=== PATIENT | male | born 1945 | race African-American/Black ===

== ENCOUNTER 2017-01-14 11:59 | Emergency (ER) | payer OTHER, BC ==
[2017-01-14 12:09] VITALS: BP 143/83; PULSE 87; TEMP 98.3; BMI 28.5
--- NOTE | 2017-01-14 13:31 | PDOC ---
History of Present Illness - General Chief Complaint: Pain Stated Complaint: INJURY Time Seen by Provider: 01/14/17 12:15 History Source: Patient Exam Limitations: No Limitations - History of Present Illness Initial Comments: 01/14/17 13:31 CHIEF COMPLAINT: Swelling redness to left great toe HISTORY OF PRESENT ILLNESS: Patient is a 71-year-old man with history of hypertension high cholesterol presents with swelling and redness to left great toe. Patient reports injuring toe for months ago. Patient denied any complaints after injury, developed redness and swelling several days ago wants to make sure it does not gout versus exacerbation of injury. Patient able to ambulate without difficulty. Review of Systems GENERAL/CONSTITUTIONAL: No fever or chills. No weakness. No weight change. HEAD, EYES, EARS, NOSE AND THROAT: No change in vision. No ear pain or discharge. No sore throat. CARDIOVASCULAR: No chest pain or shortness of breath. RESPIRATORY: No cough, wheezing, or hemoptysis. GASTROINTESTINAL: No nausea, vomiting, diarrhea or constipation. No rectal bleeding. GENITOURINARY: No dysuria, frequency, or change in urination. MUSCULOSKELETAL: Redness swelling and pain to left great toe SKIN: No rash or easy bruising. Erythema to left great toe NEUROLOGIC: No headache, vertigo, loss of consciousness, or loss of sensation. PSYCHIATRIC: No depression or anxiety. ENDOCRINE: No increased thirst. No abnormal weight change. HEMATOLOGIC/LYMPHATIC: No anemia, easy bleeding, or history of blood clots. ALLERGIC/IMMUNOLOGIC: No hives or skin allergy. No latex allergy. Physical Exam: GENERAL: The patient is awake, alert, and fully oriented, in no acute distress. LUNGS: Breath sounds equal, clear to auscultation bilaterally. No wheezes, and no crackles. HEART: Regular rate and rhythm, normal S1 and S2 without murmur, rub or gallop. ABDOMEN: Soft, nontender, normoactive bowel sounds. No guarding, no rebound. No masses. No bruising or abrasions MUSCULOSKELETAL: Normal range of motion, edema to left great toe with associated pain. No clubbing or cyanosis. No cords, erythema, or tenderness. NEUROLOGICAL: Cranial nerves II through XII grossly intact. Normal speech, normal gait. PSYCH: Normal mood, normal affect. SKIN: Left great toe with erythema, edema, bruising with streaking to ankle. Past History - Past Medical History Allergies/Adverse Reactions: Allergies Allergy/AdvReac Type Severity Reaction Status Date / Time JENNIFER Inhibitors Allergy Verified 01/14/17 12:09 Penicillins Allergy Verified 01/14/17 12:09 Home Medications: Ambulatory Orders Rosuvastatin Calcium [Crestor] 10 mg PO DAILY 01/09/16 Amlodipine Besylate [Norvasc -] 5 mg PO DAILY #30 tablet 01/31/16 Nebivolol [Bystolic -] 10 mg PO DAILY #30 tab 02/01/16 Cephalexin [Keflex] 500 mg PO TID #30 capsule 01/14/17 Methylprednisolone [Medrol Dose Anthony] 4 mg PO ASDIR #21 tablet 01/14/17 Cancer: Yes (PROSTATE) GI Disorders: Yes HTN: Yes Hypercholesterolemia: Yes Kidney Stones: Yes - Immunization History Immunization Up to Date: Yes - Psycho/Social/Smoking Cessation Hx Anxiety: No Suicidal Ideation: No Smoking History: Never smoked Have you smoked in the past 12 months: Yes Number of Cigarettes Smoked Daily: 10 If you are a former smoker, when did you quit?: 1 month Information on smoking cessation initiated: No 'Breaking Loose' booklet given: 01/28/16 Hx Alcohol Use: Yes (OCCASIONALLY) Drug/Substance Use Hx: No Substance Use Type: Alcohol *Physical Exam - Vital Signs Last Vital Signs Temp Pulse Resp BP Pulse Ox 98.3 F 87 16 143/83 98 01/14/17 12:06 01/14/17 12:06 01/14/17 12:06 01/14/17 12:06 01/14/17 12:06 ED Treatment Course - ADDITIONAL ORDERS Additional order review: Laboratory Results 01/14/17 12:31 Uric Acid 6.6 - RADIOLOGY Radiology Studies Ordered: Category Date Time Status FOOT-LEFT [RAD] Stat Radiology 01/14/17 12:29 Ordered Medical Decision Making - Medical Decision Making 01/14/17 16:29 A/P: Patient here for evaluation of left great toe redness and pain, will send uric acid and xray. Laboratory Results - last 24 hr 01/14/17 12:31 Uric Acid 6.6 X-rays negative for acute fracture dislocation, case spoken to with Dr. ana maria ball nurse practitioner Dudley Rasmussen. Patient with history that he did not disclose earlier of kidney cancer with nephrectomy. After discussion, clinical signs or highly suspicious of gout however uric acid does not indicate. We will treat patient with Keflex and Medrol Dosepak, monitor closely in follow-up in office on . I discussed the physical exam findings, ancillary test results and final diagnoses with the patient. I answered all of the patient's questions. The patient was satisfied with the care received and felt comfortable with the discharge plan and treatment plan. The patient will call to arrange follow-up and will return to the Emergency Department with any new, persistent or worsening symptoms. *DC/Admit/Observation/Transfer Diagnosis at time of Disposition: Toe pain Qualifiers: Laterality: left Qualified Code(s): M79.675 - Pain in left toe(s) - Discharge Dispostion Disposition: HOME Condition at time of disposition: Good Admit: No - Prescriptions Prescriptions: Cephalexin [Keflex] 500 mg PO TID #30 capsule Methylprednisolone [Medrol Dose Anthony] 4 mg PO ASDIR #21 tablet - Referrals Referrals: Velasquez Garcia MD [Primary Care Provider] - - Patient Instructions Additional Instructions: I spoke to Dudley from the office of Dr. Garcia, please follow up on . Please take medications as prescribed, if rash or reaction stop immediately and return to the ER. If any increased redness, swelling or pain return to the ER.
== END 2017-01-14 14:31 | disposition home or self-care (01) ==
LOC: JERFT 11:59
DX: M79.675 Pain in left toe(s) (principal); I10 Essential (primary) hypertension; E78.00 Pure hypercholesterolemia, unspecified
CPT/HCPCS: 36415; 73630-TC-LT; 84550; 99281-25

== ENCOUNTER 2017-02-26 17:43 | Emergency (ER) | payer OTHER, BC ==
[2017-02-26 18:14] VITALS: BP 141/81; PULSE 85; TEMP 98.1; BMI 28.5
--- NOTE | 2017-02-26 19:10 | PDOC ---
History of Present Illness - General Chief Complaint: Pain, Acute Stated Complaint: ARM PAIN Time Seen by Provider: 02/26/17 19:03 History Source: Patient Exam Limitations: No Limitations - History of Present Illness Initial Comments: 02/26/17 19:23 My chief complaint: Right shoulder pain for one week History of present illness: Patient is a 72-year-old male with a history of kidney/prostate cancer, hypertension, hyperlipidemia, here today complaining of worsening right shoulder pain times one week. He denies doing anything that might have triggered right shoulder pain. Patient has been getting physical therapy for rotator cuff tear of the left shoulder. She thinks he might have been using his right arm and more since having problems with his left shoulder. Patient reports in exam room that pain starts right lateral neck radiates to right shoulder and right lateral upper arm. Patient reports that pain sometimes at night when lying down we'll radiate down his arm. Patient denies any weakness of his arm or any decreased range of motion of his right shoulder or right elbow or wrist or hand. Patient denies any swelling or redness of his right arm. Patient denies that movement increases the pain of his right shoulder and right lateral neck and right lateral upper arm. Reports he been taking ibuprofen and putting a hot pack on his the area to help with pain. Patient reports that pain is not relieved at night. 02/26/17 19:27 Timing/Duration: changing over time (for one week ) Severity: moderate (rt shoulder medial to outer, upper lateral arm at times radiates down arm, rt. upper posterior shoulder ) Associated Symptoms: reports: denies symptoms Past History - Past Medical History Allergies/Adverse Reactions: Allergies Allergy/AdvReac Type Severity Reaction Status Date / Time JENNIFER Inhibitors Allergy Verified 02/26/17 18:11 Penicillins Allergy Verified 02/26/17 18:11 Home Medications: Ambulatory Orders Rosuvastatin Calcium [Crestor] 10 mg PO DAILY 01/09/16 Amlodipine Besylate [Norvasc -] 5 mg PO DAILY #30 tablet 01/31/16 Nebivolol [Bystolic -] 10 mg PO DAILY #30 tab 02/01/16 Oxycodone HCl/Acetaminophen [Percocet 5-325 mg Tablet] 1 tab PO Q8H PRN #9 tablet MDD 3 02/26/17 Cancer: Yes (PROSTATE) GI Disorders: Yes HTN: Yes Hypercholesterolemia: Yes Kidney Stones: Yes - Immunization History Immunization Up to Date: Yes - Suicide/Smoking/Psychosocial Hx Smoking History: Never smoked Have you smoked in the past 12 months: Yes Number of Cigarettes Smoked Daily: 10 If you are a former smoker, when did you quit?: 5YRS AGO Information on smoking cessation initiated: No 'Breaking Loose' booklet given: 01/28/16 Hx Alcohol Use: No Drug/Substance Use Hx: No Substance Use Type: Alcohol Review of Systems - Review of Systems Able to Perform ROS?: Yes Constitutional: No: Symptoms Reported HEENTM: No: Symptoms Reported Respiratory: No: Symptoms reported Cardiac (ROS): No: Symptoms Reported ABD/GI: No: Symptoms Reported : No: Symptoms Reported Musculoskeletal: Yes: Joint Pain (rt. anterior/posterior shoulder, lateral rt. neck, upper lateral upper arm, at times radiates down arm when in bed for one week ), Muscle Pain (rt. lateral upper arm X 1 wk ), Neck Pain (rt. lateral neck ). No: Joint Swelling Integumentary: No: Symptoms Reported Neurological: No: Symptoms reported *Physical Exam - Vital Signs Last Vital Signs Temp Pulse Resp BP Pulse Ox 98.1 F 85 16 141/81 98 02/26/17 18:11 02/26/17 18:11 02/26/17 18:11 02/26/17 18:11 02/26/17 18:11 - Physical Exam General Appearance: Yes: Appropriately Dressed Neck: positive: Tender lateral (rt, lateral). negative: Decreased range of motion, Lymphadenopathy (R), Lymphadenopathy (L), Rigidity Respiratory/Chest: positive: Lungs Clear, Normal Breath Sounds. negative: Chest Tender, Respiratory Distress Cardiovascular: positive: Regular Rhythm, Regular Rate, S1, S2 Musculoskeletal: positive: Normal Inspection. negative: CVA Tenderness, CVA Tenderness (R), CVA Tenderness (L), Decreased Range of Motion, Muscle Spasm, Vertebral Tenderness Extremity: positive: Normal Capillary Refill, Normal Inspection, Normal Range of Motion (b/l shoulders, rt. elbow, rt. wrist ), Tender (rt. anterior/ posterior shoulder,rt. lateral upper arm ). negative: Swelling Integumentary: positive: Normal Color Neurologic: positive: Alert, Normal Response, Motor Strength 5/5 (b/l upper extremities), Respond to painful stimul, Responsive. negative: Numbness, Sensory Deficit (rt. arm ) ED Treatment Course - RADIOLOGY Radiology Studies Ordered: Category Date Time Status SHOULDER-LEFT [RAD] Stat Radiology 02/26/17 19:04 Ordered SPINE-CERVICAL [RAD] Stat Radiology 02/26/17 19:04 Ordered Medical Decision Making - Medical Decision Making 02/26/17 19:27 Patient is a 72-year-old male with a history of kidney/prostate cancer, hypertension, hyperlipidemia, here today complaining of worsening right shoulder pain times one week. He denies doing anything that might have triggered right shoulder pain. Patient has been getting physical therapy for rotator cuff tear of the left shoulder. She thinks he might have been using his right arm and more since having problems with his left shoulder. Patient reports in exam room that pain starts right lateral neck radiates to right shoulder and right lateral upper arm. Patient reports that pain sometimes at night when lying down we'll radiate down his arm. Patient denies any weakness of his arm or any decreased range of motion of his right shoulder or right elbow or wrist or hand. Patient denies any swelling or redness of his right arm. Patient denies that movement increases the pain of his right shoulder and right lateral neck and right lateral upper arm. Reports he been taking ibuprofen and putting a hot pack on his the area to help with pain. Patient reports that pain is not relieved at night. r/o cervical neck grayson abnormality r/o rt. shoulder abormality rt. lateral neck pain rt. shoulder pain 02/26/17 19:28 PLAN: X-ray of cervical spine straightening of the cervical spine with degenerative changes C3-C4 mild degenerative disc disease with mild anterior spondylosis. C6- C7 moderate to marked degenerative disc disease with sclerotic changes, prominent anterior and mild posterior spur formation. No prevertebral soft tissue swelling is seen per Dr. Gorman X-ray of right shoulder no gross bone or soft tissue abnormality is seen Will have patient follow up with orthopedist as soon as possible for further evaluation And will give patient Rx for Percocet 5 mg/325 mg 1 tab every 8 hours as needed for severe pain # 9 tabs *DC/Admit/Observation/Transfer Diagnosis at time of Disposition: Right cervical radiculopathy - Discharge Dispostion Disposition: HOME Condition at time of disposition: Stable - Referrals Referrals: Velasquez Garcia MD [Primary Care Provider] - Adebayo Murillo MD [Staff Physician] - - Patient Instructions Additional Instructions: You must follow up with your orthopedist this week for further evaluation Avoid strenuous activities using your neck or right shoulder Return to emergency room if symptoms worsen any numbness of your right arm or any new symptoms develop Patient voiced understanding of discharge instructions and all questions were answered
== END 2017-02-26 20:04 | disposition home or self-care (01) ==
LOC: JERFT 17:43
DX: M54.12 Radiculopathy, cervical region (principal); M50.31 Other cervical disc degeneration, high cervical region; I10 Essential (primary) hypertension; E78.00 Pure hypercholesterolemia, unspecified; Z85.46 Personal history of malignant neoplasm of prostate; Z85.528 Personal history of other malignant neoplasm of kidney
CPT/HCPCS: 72050-TC; 73030-TC-RT; 99281-25

== ENCOUNTER 2017-04-24 09:30 | Inpatient (IN) | payer OTHER, BC ==
[2017-04-24 09:34] VITALS: BMI 28.5
--- NOTE | 2017-04-24 09:46 | PDOC ---
History of Present Illness - General Chief Complaint: Nausea/Vomiting Stated Complaint: CHEST PAIN,VOMITING Time Seen by Provider: 04/24/17 09:46 - History of Present Illness Initial Comments: 04/24/17 10:27 72yo man with PMH of renal cancer (s/p L lower lobe kidney resection), prostate Ca (s/p RT 2y ago), HTN, HLD, current smoker and everyday EtOH drinker who presents with acute onset emesis at 1AM. He reports vomiting every 15minutes, green/yellow fluid, denies blood. He had diffuse abdominal pain radiating to his chest and axilla bilaterally and mid-upper back. Reports subjective chills, no fever. Last BM yesterday morning, denies diarrhea, hematochezia, BRBPR. No unusual meals, had a home cook meal last night. Reports smoking 10cigarettes per day for a "long time"; Drinks 3-4 shots of Gin every day, last drink yesterday night before vomiting. Denies drug use. PSx: R knee replacement, L lower lobe kidney resection 04/24/17 11:14 04/24/17 11:23 Past History - Past Medical History Allergies/Adverse Reactions: Allergies Allergy/AdvReac Type Severity Reaction Status Date / Time JENNIFER Inhibitors Allergy Verified 04/24/17 10:19 Penicillins Allergy Verified 04/24/17 10:19 Home Medications: Ambulatory Orders Amlodipine Besylate [Norvasc -] 5 mg PO DAILY #30 tablet 01/31/16 Nebivolol [Bystolic -] 10 mg PO DAILY #30 tab 02/01/16 Cancer: Yes (PROSTATE) COPD: No GI Disorders: Yes HTN: Yes Hypercholesterolemia: Yes Kidney Stones: Yes - Immunization History Immunization Up to Date: Yes - Suicide/Smoking/Psychosocial Hx Smoking History: Current every day smoker Have you smoked in the past 12 months: Yes Number of Cigarettes Smoked Daily: 10 If you are a former smoker, when did you quit?: 5YRS AGO Information on smoking cessation initiated: No 'Breaking Loose' booklet given: 01/28/16 Hx Alcohol Use: Yes (DAILY GIN) Drug/Substance Use Hx: No Substance Use Type: Alcohol *Physical Exam - Vital Signs Last Vital Signs Temp Pulse Resp BP Pulse Ox 97.3 F L 69 20 153/84 98 04/24/17 09:30 04/24/17 09:30 04/24/17 09:30 04/24/17 09:30 04/24/17 09:30 - Physical Exam General Appearance: Yes: Mild Distress Neck: positive: Supple Respiratory/Chest: positive: Lungs Clear, Normal Breath Sounds Cardiovascular: positive: Regular Rhythm, Regular Rate, S1, S2 Gastrointestinal/Abdominal: positive: Normal Bowel Sounds, Soft, Protuberent, Tenderness, Other (Soft, +diffuse tenderness, worse in epigastric area, + guarding. No rebound) Musculoskeletal: negative: CVA Tenderness Neurologic: positive: Fully Oriented, Alert Heart Score/ECG Review - [place]: Normal - ECG Impressions Comment:: 04/24/17 13:53 EKG: NSR, rate 65, normal axis, normal intervals, no evidence of ischemic changes ED Treatment Course - LABORATORY CBC & Chemistry Diagram: 04/24/17 10:35 04/24/17 10:35 - RADIOLOGY Radiology Studies Ordered: 04/24/17 13:49 EXAM: CT abdomen and pelvis without contrast. INDICATION: Epigastric tenderness to palpation. TECHNIQUE: Noncontrast CT of the abdomen and pelvis without oral contrast and without intravenous contrast. COMPARISON: 01/28/2016 CT abdomen/pelvis. FINDINGS: Evaluation of the solid viscera, vessels and bowel is limited without contrast. There are dependent changes in both lung bases. The heart is not enlarged. There is severe coronary artery calcific atherosclerosis. The liver is normal in size and contour. Scattered small calcifications in the left hepatic lobe are unchanged, most likely calcified granulomas. There is cholelithiasis. No CT evidence of acute cholecystitis. Common bile duct is not dilated. The unenhanced pancreas is unremarkable. Normal size spleen. A nonspecific 2.3 x 2.1 cm hypodense lesion in the superior spleen is unchanged in size from prior. There is no mass in the adrenal glands. There is a nonobstructing calculus in a lower pole calyx of the right kidney measuring 5-6 mm and a 2 mm nonobstructing calculus in the upper pole of left kidney. There is a 7 mm round cortical calcification in the upper pole of the left kidney, unchanged. There is no hydronephrosis. There are no ureteral calculi. Normal caliber abdominal aorta with severe calcific atherosclerosis including the major branch vessels. There are no pathologically enlarged retroperitoneal lymph nodes by CT size criteria. No dilated loops of large or small bowel to suggest obstruction. There is diverticulosis of the transverse, descending and sigmoid colon with no evidence of acute diverticulitis. Normal-appearing appendix in the right lower quadrant. No free intraperitoneal air or ascites. There is a small fat- containing umbilical hernia. Urinary bladder is unremarkable. Prostate gland is not enlarged. There are no pathologically enlarged pelvic sidewall lymph nodes by CT size criteria. There is osseous demineralization with no evidence of acute fracture in the visualized osseous structures. There are degenerative changes throughout the spine with grade 1 anterolisthesis of L4 and L5. There is epidural lipomatosis with significant thecal sac compression at all levels from L3 superior endplate to L5 inferior endplate, similar to the prior exam. IMPRESSION: 1. No evidence of intestinal obstruction or acute diverticulitis. Normal appendix. 2. Cholelithiasis. No CT evidence of acute cholecystitis or biliary ductal dilatation. 3. Nonobstructing nephrolithiasis measuring up to 5-6 mm in the right kidney. No hydroureteronephrosis. No ureteral or urinary bladder calculi. Medical Decision Making - Medical Decision Making 04/24/17 11:24 Plan: -CBC, CMP, Lipase -1L NS -Zofran and Morphine given for nausea and pain 04/24/17 11:30 CBC, BMP 04/24/17 10:35 Laboratory Tests 04/24/17 04/24/17 10:35 10:35 Neutrophils % 90.5 H Lymphocytes % 4.4 L Monocytes % 4.8 Eosinophils % 0.1 D Basophils % 0.2 CMP Sodium 140 mmol/L (136-145) 04/24/17 10:35 Potassium 3.7 mmol/L (3.5-5.1) 04/24/17 10:35 Chloride 104 mmol/L (98-107) 04/24/17 10:35 Carbon Dioxide 29 mmol/L (21-32) D 04/24/17 10:35 Anion Gap 7 (8-16) L 04/24/17 10:35 BUN 19 mg/dL (7-18) H D 04/24/17 10:35 Creatinine 1.6 mg/dL (0.7-1.3) H D 04/24/17 10:35 Creat Clearance w eGFR 42.82 (>60) 04/24/17 10:35 Random Glucose 152 mg/dL (74-106) H D 04/24/17 10:35 Calcium 9.6 mg/dL (8.5-10.1) D 04/24/17 10:35 Total Bilirubin 0.5 mg/dL (0.2-1.0) D 04/24/17 10:35 AST 51 U/L (15-37) H D 04/24/17 10:35 ALT 36 U/L (12-78) D 04/24/17 10:35 Alkaline Phosphatase 142 U/L (45-117) H D 04/24/17 10:35 Total Protein 8.1 g/dl (6.4-8.2) D 04/24/17 10:35 Albumin 4.2 g/dl (3.4-5.0) D 04/24/17 10:35 Lipase 302 U/L (73-393) 04/24/17 10:35 Laboratory Tests 04/24/17 10:35 Lipase 302 Alk Phos moderately elevated, but LFTs and Lipase not significantly elevated. CBC with predominant neutrophils, possibly suggestive of infectious etiology. Patient continues to have abdominal pain with most significant tenderness in epigastrium. CT abd/pelvis revealed R nephrolithiasis with no evidence of hydrouretronephrosis. Pancreatitis unlikely given no elevation of lipate and lack of findings on imaging. Given lack of findings on CT that could be contributing to patient's significant abdmominal pain, will favor admission to further work-up. 04/24/17 13:54 *DC/Admit/Observation/Transfer Diagnosis at time of Disposition: Abdominal pain - Discharge Dispostion Admit: Yes - Referrals Referrals: Velasquez Garcia MD [Primary Care Provider] - - Patient Instructions - Post Discharge Activity
--- NOTE | 2017-04-24 09:48 | PDOC ---
Attending Attestation - HPI HPI: 04/24/17 10:56 The patient is a 72 year old male with a significant PMH of HTN, hyperlipidemia , diabetes, prostate CA s/p radiation therapy, and alcohol abuse who presents to the emergency department with abdominal pain and vomiting beginning approximately 11 hours ago. The patient reports an onset of yellow-green emesis at 1AM this morning with episodes every 15 minutes since then. The patient denies hematemesis. The patient describes his abdominal pain as diffuse and radiating to his chest and mid upper back. He denies eating anything unusual for dinner yesterday night. Allergies: JENNIFER inhibitors, Penicillins Surgical history: Partial resection of left lower lobe of kidney. Right knee replacement. Social history: Everyday alcohol use. Everyday smoker. No reported drug use. PCP: Dr. Garcia <Manpreet Joseph - Last Filed: 04/24/17 11:42> - Resident Resident Name: April Schultz - ED Attending Attestation I have performed the following: I have examined & evaluated the patient, The case was reviewed & discussed with the resident, I agree w/resident's findings & plan, Exceptions are as noted - Physicial Exam PE: GENERAL: Awake, alert, and fully oriented. Appears uncomfortable. HEAD: No signs of trauma EYES: PERRLA, EOMI, sclera anicteric, conjunctiva clear ENT: Auricles normal inspection, hearing grossly normal, nares patent, oropharynx clear without exudates. Dry mucosa NECK: Normal ROM, supple, no lymphadenopathy, JVD, or masses LUNGS: Breath sounds equal, clear to auscultation bilaterally. No wheezes, and no crackles HEART: Regular rate and rhythm, normal S1 and S2, no murmurs, rubs or gallops ABDOMEN: Soft, +diffuse tenderness, worse in epigastric area, +guarding. Normoactive bowel sounds. No rebound. No masses EXTREMITIES: Normal range of motion, no edema. No clubbing or cyanosis. No cords, erythema, or tenderness NEUROLOGICAL: Cranial nerves II through XII grossly intact. Normal speech, normal gait SKIN: Warm, Dry, normal turgor, no rashes or lesions noted. - Medical Decision Making Pt with epigastric/upper abdominal pain, diffusely tender, but worst in upper abdomen. Will obtain labs, then CT a/p to further evaluate. <Marlen Ashton - Last Filed: 04/24/17 12:27>
[2017-04-24] MEDS ORDERED: ONDANSETRON 4 MG/2 ML VIAL IVPB ONE (10:29)
[2017-04-24] MEDS ORDERED: morphine CARPU-JECT 2 MG/1 ML DISP.SYRIN IVPUSH ONE (10:30)
[2017-04-24] MEDS ORDERED: SODIUM CHLORIDE 1,000 ML IV STA (10:31)
[2017-04-24] MEDS ORDERED: morphine CARPU-JECT 4 MG/1 ML DISP.SYRIN IVPUSH ONE ×2 (10:33→11:26)
[2017-04-24] MEDS ORDERED: ONDANSETRON 4 MG/2 ML VIAL ONE (10:35)
[2017-04-24] MEDS ORDERED: morphine SULFATE 4 MG/ML VIAL ONE ×2 (10:35→11:46)
[2017-04-24 10:47] LABS: BASOPHIL 0.2 % (0-2.0); EOSINOPHIL 0.1 % (0-4.5); MCH 31.7 pg (25.7-33.7); MCHC 33.1 g/dl (32.0-35.9); MEAN CELL VOLUME 95.6 fl (80-96); MEAN PLT VOLUME 7.1 fl (7.5-11.1); NEUTROPHILS 90.5 % (42.8-82.8); PLATELET COUNT 182 K/MM3 (134-434); RDW 14.5 % (11.9-15.9); WHITE BLOOD COUNT 7.4 K/mm3 (4.0-10.0)
[2017-04-24 11:14] LABS: ALBUMIN 4.2 g/dl (3.4-5.0); ALK PHOS 142 U/L (45-117); ANION GAP 7 (8-16); BILIRUBIN,TOTAL 0.5 mg/dL (0.2-1.0); CALCIUM 9.6 mg/dL (8.5-10.1); CO2 29 mmol/L (21-32); CREATININE 1.6 mg/dL (0.7-1.3); GLUCOSE,RANDOM 152 mg/dL (74-106); SGOT/AST 51 U/L (15-37); SGPT/ALT 36 U/L (12-78); TOT PROT 8.1 g/dl (6.4-8.2)
[2017-04-24] MEDS ORDERED: PANTOPRAZOLE SODIUM 40 MG VIAL IVPUSH ONE (13:40)
[2017-04-24] MEDS ORDERED: PANTOPRAZOLE SODIUM 40 MG/100 ML BAG IVPB ONE (14:42)
[2017-04-24] MEDS ORDERED: HYDROmorphone HCL CARPU-JECT 1 MG/1 ML DISP.SYRIN IVPUSH ONE (15:20)
[2017-04-24] MEDS ORDERED: HYDROmorphone HCL CARPU-JECT 1 MG/1 ML DISP.SYRIN ONE (15:21)
[2017-04-24] MEDS ORDERED: ONDANSETRON 4 MG/2 ML VIAL IVPUSH PRN (15:59)
[2017-04-24] MEDS: D5-1/2NS+20 MEQ KCL - 20 MEQ/1,000 ML INFUS.BAG IV SCH (16:48)
[2017-04-24] MEDS: HYDROmorphone HCL CARPU-JECT 2 MG/1 ML DISP.SYRIN IVPUSH PRN ×2 (18:09→22:33)
[2017-04-24] MEDS ORDERED: PNEUMOC 13-VAL CONJ-DIP CRM/PF 0.5 ML DISP.SYRIN IM ONE ×2 (18:20→23:30)
[2017-04-24] MEDS: HEPARIN NA (PORCINE) 5,000 UNITS/ML 1ML VIAL SQ SCH (21:18)
--- NOTE | 2017-04-24 22:31 | CONSULT ---
Consult Consult Specialty:: General Surgery Referred by:: Dr. Garcia Reason for Consultation:: abdominal pain, n/v - History of Present Illness Chief Complaint: abdominal pain, n/v History of Present Illness: 72yo M with HTN, HLD, h/o renal and prostate CA, kidney stones, gallstones, daily smoker and drinker, began having bilious vomiting around 1am (yesterday?) morning not long after 3 teaspoons of ice cream, which persisted every 15-30 minutes through the morning. He had shrimp and rice for dinner before that. Last drink was the night before the emesis. Last BM was yesterday, soft. Was not vomiting food, just green/yellow fluid. He also had/has diffuse abdominal pain radiating to the chest, axillae, and upper back. He describes generalized muscle cramps "all over my body" as well. He spoke with Dr. Garcia (PMD), who told him to stop taking his Crestor. He was going to take magnesium for the cramping, but was also asked to wait until they were able to check labs. In the ER, he had a normal wbc, slightly elevated BUN/Cr 19/1.6, AST 51, alk phos 142 both slightly up, otherwise normal labs. No urine result, no Mg/Phos. CT was done showing no acute findings, but he had persistent abdominal pain and tenderness and was admitted for workup. The pt said he once had pain like this but it turned out to be kidney stones. He sees Dr. Blackwell for colonoscopies every 3 years. - History Source History Provided By: Patient Limitations to Obtaining History: No Limitations - Past Medical History Cardio/Vascular: Yes: HTN, Hyperlipdemia Hepatobiliary: Yes: Cholelithiasis Renal/: Yes: Cancer (renal cell s/p L lower renal lobectomy; prostate s/p radiation only), Renal Calculi Musculoskeletal: Yes: Osteoarthritis (knees) Endocrine: No: Diabetes Mellitus (denies) - Past Surgical History Past Surgical History: Yes: Colonoscopy (with precancerous polyps, usually gets scoped e0inlow), Joint Replacement (right knee), Nephrectomy (left lower partial ) - Alcohol/Substance Use Hx Alcohol Use: Yes (DAILY 3 GIN/DAY) History of Substance Use: reports: None - Smoking History Smoking history: Current every day smoker Have you smoked in the past 12 months: Yes Aproximately how many cigarettes per day: 10 (for 30 years) - Social History ADL: Independent Home Medications - Allergies Allergies/Adverse Reactions: Allergies Allergy/AdvReac Type Severity Reaction Status Date / Time JENNIFER Inhibitors Allergy Verified 04/24/17 10:19 Penicillins Allergy Verified 04/24/17 10:19 - Home Medications Home Medications: Ambulatory Orders Amlodipine Besylate [Norvasc -] 5 mg PO DAILY #30 tablet 01/31/16 Nebivolol [Bystolic -] 10 mg PO DAILY #30 tab 02/01/16 Home Medications (free text): Zyrtec daily, Crestor - stopped few days ago Family Disease History - Family Disease History Family History: Unremarkable Review of Systems - Review of Systems Constitutional: denies: Chills, Fever Eyes: reports: Other (wears glasses). denies: Recent Change in Vision HENT: denies: Difficult Swallowing, Hearing Loss, Nasal Congestion, Throat Pain Neck: denies: Swollen Glands, Tenderness Cardiovascular: denies: Chest Pain, Palpitations Respiratory: reports: SOB (difficulty breathing secondary to abdominal pain). denies: Cough Gastrointestinal: reports: Abdominal Pain (with hpi), Nausea (with hpi), Vomiting (bilious, with hpi). denies: Constipation, Diarrhea, Vomiting Blood Genitourinary: denies: Burning, Dysuria, Hematuria Musculoskeletal: reports: Extremity Pain, Muscle Pain, Muscle Cramps (all over) , Other (involuntary movements, fasciculations at times). denies: Joint Pain Integumentary: denies: Change in Color, Rash Neurological: reports: Unsteady Gait (sometimes it feels like his legs are "floating up" and if bends over he might fall). denies: Dizziness, Headache Psychiatric: denies: Anxiety, Depression Physical Exam Vital Signs: Vital Signs Temperature 98.1 F 04/24/17 22:00 Pulse Rate 91 H 04/24/17 22:00 Respiratory Rate 20 04/24/17 22:00 Blood Pressure 163/93 04/24/17 22:00 O2 Sat by Pulse Oximetry (%) 95 04/24/17 18:38 Constitutional: Yes: Well Nourished, No Distress, Calm Eyes: Yes: Conjunctiva Clear, EOM Intact. No: Sclera Icterus HENT: Yes: Atraumatic, Normocephalic Neck: Yes: Supple, Trachea Midline Cardiovascular: Yes: Tachycardia. No: Pulse Irregular, Murmur Respiratory: Yes: Regular, CTA Bilaterally Gastrointestinal: Yes: Normal Bowel Sounds, Soft, Hernia (tiny reducible umbilical), Tenderness (RUQ, epigastric, RLQ slightly less, overall less on left but still LUQ tender - no R/G), Other (healed LLQ scar). No: Distention ...Rectal Exam: Yes: Deferred Renal/: Yes: CVA Tenderness - Left, CVA Tenderness - Right ("I think it's gas pains back there") Musculoskeletal: No: Joint Stiffness, Joint Swelling Extremities: Yes: Other (healed right knee scar). No: Cool, Cyanosis Edema: No Peripheral Pulses WNL: Yes Integumentary: No: Jaundice, Rash Neurological: Yes: Alert, Oriented Psychiatric: Yes: Alert, Oriented Labs: CBC, BMP 04/24/17 10:35 04/24/17 10:35 CMP Sodium 140 mmol/L (136-145) 04/24/17 10:35 Potassium 3.7 mmol/L (3.5-5.1) 04/24/17 10:35 Chloride 104 mmol/L (98-107) 04/24/17 10:35 Carbon Dioxide 29 mmol/L (21-32) D 04/24/17 10:35 Anion Gap 7 (8-16) L 04/24/17 10:35 BUN 19 mg/dL (7-18) H D 04/24/17 10:35 Creatinine 1.6 mg/dL (0.7-1.3) H D 04/24/17 10:35 Creat Clearance w eGFR 42.82 (>60) 04/24/17 10:35 Random Glucose 152 mg/dL (74-106) H D 04/24/17 10:35 Calcium 9.6 mg/dL (8.5-10.1) D 04/24/17 10:35 Total Bilirubin 0.5 mg/dL (0.2-1.0) D 04/24/17 10:35 AST 51 U/L (15-37) H D 04/24/17 10:35 ALT 36 U/L (12-78) D 04/24/17 10:35 Alkaline Phosphatase 142 U/L (45-117) H D 04/24/17 10:35 Total Protein 8.1 g/dl (6.4-8.2) D 04/24/17 10:35 Albumin 4.2 g/dl (3.4-5.0) D 04/24/17 10:35 Lipase 302 U/L (73-393) 04/24/17 10:35 Imaging - Results Cat Scan: Report Reviewed (no obstruction, normal appendix, no free air or fluid , + renal stones nonobstructing, + cholelithiasis, no signs cholecystitis, diverticulosis without itis, calcific atherosclerosis), Image Reviewed Problem List - Problems (1) Abdominal pain Assessment/Plan: admitted to medicine no evidence of obstruction, appendicitis, cholecystitis, diverticulitis on CT agree with NPO/IVF until pain/tenderness resolve follow clinical exam GI to see patient differential also includes alcoholic gastritis, gastroenteritis, food poisoning ?? no acute surgical issues identified at this time pt also has diffuse muscle cramping and is daily drinker consider magnesium supplementation, lab not yet checked Dr. David Le will cover for me until Saturday will follow with you Code(s): R10.9 - UNSPECIFIED ABDOMINAL PAIN Qualifiers: Abdominal location: generalized Qualified Code(s): R10.84 - Generalized abdominal pain (2) Vomiting with nausea, not intractable Assessment/Plan: if n/v persist despite antiemetics, explained to pt that NGT could be considered Code(s): R11.2 - NAUSEA WITH VOMITING, UNSPECIFIED Qualifiers: Vomiting type: unspecified Qualified Code(s): R11.2 - Nausea with vomiting , unspecified (3) Alcohol consumption of one to four drinks per day Code(s): Z78.9 - OTHER SPECIFIED HEALTH STATUS (4) H/O renal cell cancer Code(s): Z85.528 - PERSONAL HISTORY OF OTHER MALIGNANT NEOPLASM OF KIDNEY (5) H/O prostate cancer Code(s): Z85.46 - PERSONAL HISTORY OF MALIGNANT NEOPLASM OF PROSTATE (6) Hyperlipidemia Code(s): E78.5 - HYPERLIPIDEMIA, UNSPECIFIED Qualifiers: Hyperlipidemia type: unspecified Qualified Code(s): E78.5 - Hyperlipidemia , unspecified (7) HTN (hypertension) Code(s): I10 - ESSENTIAL (PRIMARY) HYPERTENSION
[2017-04-25] MEDS: D5-1/2NS+20 MEQ KCL - 20 MEQ/1,000 ML INFUS.BAG IV SCH ×4 (02:59→21:34)
[2017-04-25] MEDS: HYDROmorphone HCL CARPU-JECT 2 MG/1 ML DISP.SYRIN IVPUSH PRN ×3 (03:36→16:09)
[2017-04-25 08:07] LABS: BASOPHIL 0.1 % (0-2.0); MCH 32.4 pg (25.7-33.7); MCHC 33.5 g/dl (32.0-35.9); MEAN CELL VOLUME 96.7 fl (80-96); MEAN PLT VOLUME 7.8 fl (7.5-11.1); NEUTROPHILS 89.6 % (42.8-82.8); PLATELET COUNT 187 K/MM3 (134-434); RDW 14.3 % (11.9-15.9); WHITE BLOOD COUNT 11.8 K/mm3 (4.0-10.0)
--- NOTE | 2017-04-25 08:09 | PN ---
Progress Note, Physician Chief Complaint: abdominal pain and vomiting History of Present Illness: 72yo M with HTN, HLD, h/o renal and prostate CA, kidney stones, gallstones, daily smoker and drinker, began having bilious vomiting possibly since saturday after ice cream, which persisted every 15-30 minutes through the morning. and may have had 25 episodes since then. He reports persistent abdominal pain and nausea, no more vomiting and no NGT. - Current Medication List Current Medications: Active Medications Heparin Sodium (Porcine) (Heparin -) 5,000 unit SQ BID GERALD Last Admin: 04/24/17 21:18 Dose: 5,000 unit Hydromorphone HCl (Dilaudid Injection -) 1 mg IVPUSH Q4H PRN PRN Reason: PAIN Last Admin: 04/25/17 03:36 Dose: 1 mg Potassium Chloride/Dextrose/Sod Cl (D5-1/2ns+20 Meq Kcl -) 20 meq in 1,000 mls @ 125 mls/hr IV ASDIR GERALD Last Admin: 04/25/17 02:59 Dose: 125 mls/hr Pantoprazole Sodium 80 mg/ (Sodium Chloride) 100 mls @ 10 mls/hr IVPB Q10H GERALD PRN Reason: 8 MG/HR Ondansetron HCl (Zofran Injection) 4 mg IVPUSH Q6H PRN PRN Reason: NAUSEA - Objective Vital Signs: Vital Signs Temperature 98.9 F 04/25/17 06:00 Pulse Rate 99 H 04/25/17 06:00 Respiratory Rate 20 04/25/17 06:00 Blood Pressure 133/87 04/25/17 06:00 O2 Sat by Pulse Oximetry (%) 96 04/24/17 21:00 Vital Signs Period Temp Pulse Resp BP Sys/Shine Pulse Ox Last 24 Hr 97.3 F-98.9 F 69-99 - 133-163/84-93 95-98 Intake & Output 04/24/17 04/25/17 04/25/17 23:59 07:59 15:59 Intake Total 0 1250 Balance 0 1250 Weight 210 lb Intake: IV 1250 D5-1/2NS+20 MEQ KCL - 20 1250 meq In 1,000 ml @ 125 mls /hr IV ASDIR GERALD Rx#: [id number] Oral 0 Other: Voiding Method Urinal Urinal Bowel Movement No Height 6 ft Body Mass Index (BMI) 28.5 Weight Measurement Method Stated by Patient Constitutional: Yes: No Distress, Calm Eyes: Yes: Conjunctiva Clear, EOM Intact HENT: Yes: Atraumatic, Normocephalic Neck: Yes: Supple, Trachea Midline Cardiovascular: Yes: Regular Rate and Rhythm, S1, S2 Respiratory: Yes: Regular, CTA Bilaterally Gastrointestinal: Yes: Soft, Distention, Hypoactive Bowel Sounds. No: Tenderness, Tenderness, Epigastrium, Tenderness, Rebound, Vomiting ...Rectal Exam: Yes: Deferred Genitourinary: No: CVA Tenderness - Left, CVA Tenderness - Right Musculoskeletal: No: Muscle Pain, Muscle Weakness Extremities: No: Calf Tenderness, Cool, Cyanosis Edema: No Peripheral Pulses WNL: Yes Peripheral Pulses: Left Radial: 2+, Right Radial: 2+, Left Doralis Pedis: 2+, Right Dorsalis Pedis: 2+ Neurological: Yes: Alert, Oriented Psychiatric: Yes: Alert, Oriented Labs: Abnormal Lab Results 04/24/17 04/24/17 10:35 10:35 RBC 3.73 L MPV 7.1 L D Neutrophils % 90.5 H Lymphocytes % 4.4 L Anion Gap 7 L BUN 19 H D Creatinine 1.6 H D Random Glucose 152 H D AST 51 H D Alkaline Phosphatase 142 H D Problem List - Problems (1) Abdominal pain Assessment/Plan: Abdominal pain is improved this morining. Distension is persistent, he feel nausea but has not vomited. no evidence of obstruction, appendicitis, cholecystitis, diverticulitis on CT. He has been afebrile Continue NPO/IVF until pain/tenderness resolves follow clinical exams appreciate GI input f/u labs in AM Code(s): R10.9 - UNSPECIFIED ABDOMINAL PAIN Qualifiers: Abdominal location: generalized Qualified Code(s): R10.84 - Generalized abdominal pain (2) Vomiting with nausea, not intractable Assessment/Plan: abdominal xray this morning given abdominal distension Code(s): R11.2 - NAUSEA WITH VOMITING, UNSPECIFIED Qualifiers: Vomiting type: unspecified Qualified Code(s): R11.2 - Nausea with vomiting , unspecified (3) Nausea Code(s): R11.0 - NAUSEA
[2017-04-25 08:13] LABS: INR 1.03 (0.82-1.09); PROTHROMBIN TIME (PATIENT) 11.6 SEC (9.98-11.88)
[2017-04-25 08:16] LABS: ANION GAP 7 (8-16); CALCIUM 9.1 mg/dL (8.5-10.1); CO2 28 mmol/L (21-32)
[2017-04-25 08:25] LABS: ALBUMIN 3.5 g/dl (3.4-5.0); ALK PHOS 129 U/L (45-117); BILIRUBIN,TOTAL 1.1 mg/dL (0.2-1.0); CREATININE 1.6 mg/dL (0.7-1.3); GLUCOSE,RANDOM 123 mg/dL (74-106); SGOT/AST 50 U/L (15-37); SGPT/ALT 37 U/L (12-78); TOT PROT 7.3 g/dl (6.4-8.2)
--- NOTE | 2017-04-25 08:35 | HP ---
Admitting History and Physical - Admission History of Present Illness: 72yo man with PMH of renal cancer (s/p L lower lobe kidney resection), prostate Ca (s/p RT 2y ago), HTN, HLD, current smoker and everyday EtOH drinker who presents with acute onset emesis at 1AM. He reports vomiting every 15minutes, green/yellow fluid, denies blood. He had diffuse abdominal pain radiating to his chest and axilla bilaterally and mid-upper back. Reports subjective chills, no fever. Last BM yesterday morning, denies diarrhea, hematochezia, BRBPR. No unusual meals, had a home cook meal last night. - Past Medical History Cardiovascular: Yes: HTN, Hyperlipdemia Hepatobiliary: Yes: Cholelithiasis Renal/: Yes: Cancer (renal cell s/p L lower renal lobectomy; prostate s/p radiation only), Renal Calculi Musculoskeletal: Yes: Osteoarthritis (knees) Endocrine: No: Diabetes Mellitus (denies) - Past Surgical History Past Surgical History: Yes: Colonoscopy (with precancerous polyps, usually gets scoped [id number]), Joint Replacement (right knee), Nephrectomy (left lower partial ) - Smoking History Smoking history: Current every day smoker Have you smoked in the past 12 months: Yes Aproximately how many cigarettes per day: 10 (for 30 years) If you are a former smoker, when did you quit?: 5YRS AGO - Alcohol/Substance Use Hx Alcohol Use: Yes (DAILY 3 GIN/DAY) History of Substance Use: reports: None - Social History ADL: Independent Home Medications - Allergies Allergies/Adverse Reactions: Allergies Allergy/AdvReac Type Severity Reaction Status Date / Time JENNIFER Inhibitors Allergy Verified 04/24/17 10:19 Penicillins Allergy Verified 04/24/17 10:19 - Home Medications Home Medications: Ambulatory Orders Amlodipine Besylate [Norvasc -] 5 mg PO DAILY #30 tablet 01/31/16 Nebivolol [Bystolic -] 10 mg PO DAILY #30 tab 02/01/16 Review of Systems - Review of Systems Cardiovascular: denies: Chest Pain Respiratory: denies: SOB, SOB on Exertion Gastrointestinal: reports: Abdominal Pain, Nausea, Vomiting Genitourinary: reports: No Symptoms Physical Examination Vital Signs: Vital Signs Temperature 98.9 F 04/25/17 06:00 Pulse Rate 99 H 04/25/17 06:00 Respiratory Rate 20 04/25/17 06:00 Blood Pressure 133/87 04/25/17 06:00 O2 Sat by Pulse Oximetry (%) 96 04/24/17 21:00 Cardiovascular: Yes: Regular Rate and Rhythm Respiratory: Yes: Regular, CTA Bilaterally Gastrointestinal: Yes: Normal Bowel Sounds, Soft. No: Tenderness Labs: CBC, BMP 04/25/17 07:30 04/25/17 07:30 Imaging - Results Cat Scan: Report Reviewed Problem List - Problems (1) Gastritis Assessment/Plan: PPI GI CONSULT Code(s): K29.70 - GASTRITIS, UNSPECIFIED, WITHOUT BLEEDING (2) CKD (chronic kidney disease) Assessment/Plan: MONITOR LABS CR STABLE Code(s): N18.9 - CHRONIC KIDNEY DISEASE, UNSPECIFIED (3) Abdominal pain Assessment/Plan: MAYBE AGE NPO IVF GI AND ID CONSULT STOOL CULTURES Code(s): R10.9 - UNSPECIFIED ABDOMINAL PAIN Qualifiers: Abdominal location: generalized Qualified Code(s): R10.84 - Generalized abdominal pain (4) Hyperlipidemia Code(s): E78.5 - HYPERLIPIDEMIA, UNSPECIFIED Qualifiers: Hyperlipidemia type: unspecified Qualified Code(s): E78.5 - Hyperlipidemia , unspecified
[2017-04-25] MEDS: HEPARIN NA (PORCINE) 5,000 UNITS/ML 1ML VIAL SQ SCH ×2 (09:55→21:33)
[2017-04-25] MEDS: PANTOPRAZOLE SODIUM 80 MG in SODIUM CHLORIDE 100 ML IVPB SCH ×2 (09:56→19:55)
--- NOTE | 2017-04-25 10:13 | PN ---
Progress Note (short form) - Note Progress Note: ID Consult dictated Abdominal pain syndrome, N/V Acute gastritis/ gastroenteritis Leukocytosis PCN allergy Obtain cultures GI/Surgical follow up Observe off antibiotics
--- NOTE | 2017-04-25 10:52 | CONS ---
DATE OF CONSULTATION: DATE OF DICTATION: 04/25/2017 The patient is a 72-year-old male evaluated for leukocytosis and abdominal pain. The patient reports that 2 days ago at approximately 1 a.m. in the morning, he had 3 scoops of ice cream and subsequently developed diffuse abdominal pain, nausea, vomiting. He presents to the emergency room, where CAT scan was performed that showed cholelithiasis without evidence of biliary tract obstruction, and a nonobstructing right renal stone. His course was complicated by elevated white blood cell count. At the present time, he is awake and alert. He complains of episodic diffuse abdominal discomfort. He has had no recurrent nausea or vomiting. He has not moved his bowels since admission. He reports his last bowel movement just prior to admission was normal, no diarrhea or bloody stool. He denies any fever or chills. He lives at home with his fiancee, who is well. She did not share the ice cream with him and has not had any GI symptoms. He denies any recent travel or antibiotic therapy. Past medical history positive for kidney carcinoma, status post partial resection, prostate cancer, hypertension, hyperlipidemia. PAST SURGICAL HISTORY: Status post right total knee replacement and left partial nephrectomy. Allergies to PENICILLIN and JENNIFER INHIBITORS. He reports hives with PENICILLIN. Medications include Norvasc and Bystolic. Social history positive for tobacco and alcohol use. SYSTEMS REVIEW: Neurologic: No loss of consciousness, seizure activity, or focal weakness. Cardiac: Negative chest pain or palpitations. Respiratory: Negative cough or sputum production. Gastrointestinal: As per HPI. Genitourinary: Negative for urinary tract infection. LABORATORY DATA: White count 11.8, 89 neutrophils, 3 lymphocytes, 7 monocytes, hematocrit 35.2, platelet count 187. BUN 14, creatinine 1.6, total bilirubin 1.1, alkaline phosphatase 129, AST 50. PHYSICAL EXAMINATION: General: He is out of bed, in chair, in no acute distress. Vital Signs: Temperature 98.7. Blood pressure 147/84. Pulse 85, regular. Respirations 20 per minute. Eyes: Sclerae anicteric. Heart Sounds: S1, S2. Lungs: Clear bilaterally. Abdomen: Positive bowel sounds. Abdomen is distended and tympanitic. Mild diffuse tenderness. No mass, rebound or rigidity. Extremities: Negative for edema. IMPRESSION: 1. Abdominal pain syndrome/nausea vomiting. 2. Elevated white blood cell count. 3. PENICILLIN allergy. Obtain cultures. Repeat CBC. Surgical followup. Monitor off antibiotic therapy. Thank you for the kind referral. RAFIA IBRAHIM M.D. [id number]
--- NOTE | 2017-04-25 16:17 | PN ---
Progress Note (short form) - Note Progress Note: SEE COMPLETE GI CONSULTATION DICTATION: IN BRIEF: 72M KNOWN TO MYSELF SEE LAST 10/2016 FOR ROUTINE COLON SURVEILLANCE FOR HX OF COLON POLYPS AND KNOWN DIVERTICULOSIS ADMIT WITH ACUTE ONSET OF N/V/ABD PAIN INITIAL CT SCAN VERY LIMITED NO IV OR ORAL CONTRAST AND THERFORE, CANNOT EXCLUDE GI PROCESS HAS HAD NO VOMITING TODAY BUT STILL PAIN/ NAUSEA NO BM AND NO FLATUS ABD DISTENDED BS MUCH DIMINISHED TENDER IN EPIGASTRIC AND LUQ REGIONS WBC MARGUERITE FROM 7 TO 11K BASED ON PRIOR HX CONCERN OF SBO/PARTIAL AGREE WITH IVF/NPO/PAIN MEDS/ PPI MEDS FOR NOW F/U ALL LABS IF VOMITING RECURS WOULD STROJNGLY ADVISE NGT DECOMPRESSION IF NO IMPROVEMENT IN 24 HOURS OR IF FURTHER RISE IN WBC, THEN WOULD ADVISE A REPEAT CT SCAN OF A/P WITH BOTH ORAL AND IV CONTRAST TO R/O SBO THANKS, MD GILMA
--- NOTE | 2017-04-25 17:17 | CONS ---
DATE OF CONSULTATION: 04/25/2017 GASTROENTEROLOGY CONSULTATION HISTORY OF PRESENT ILLNESS: I was asked by Dr. Garcia to evaluate this patient for abdominal pain and vomiting. The patient is known to myself. He is a 72-year-old gentleman whom I had seen in the office last in October of 2016. He has had history of moderate pancolonic diverticulosis, internal hemorrhoids, and colon polyps. He came in October of 2016 to undergo a surveillance colonoscopy. He had an exam at that time, and he was noted to have moderate pancolonic diverticulosis and internal hemorrhoids, otherwise an unremarkable exam to the ileum, and a 5-year followup was advised. He had no evidence of polyps on that examination. Now, apparently, the patient has been doing well until yesterday, when he came in with acute onset of repetitive vomiting every 15 minutes. He says that last night he had eaten a lot of food, and he had some ice cream, and he then had the onset of vomiting every 15 to 20 minutes, a greenish-yellow fluid, no hematemesis. He had diffuse abdominal pain radiating to the chest and the axilla bilaterally and the mid upper back, but as noted no fevers, chills or sweats, no hematuria, no diarrhea, no hematochezia, nor any dark tarry stool. He states that he had been feeling fine until this episode. He now reports in the hospital he has not had any further vomiting, although in the ER he did, but since he's been up on fajardo 6, he has not. He has not moved his bowels or passed much gas, he reports. PAST MEDICAL HISTORY: Notable for hypertension, hyperlipidemia . He has a history of renal carcinoma status post partial left nephrectomy. He has history of prostate cancer that was treated with RT 2 years ago. He has had right knee surgery and surgical removal of kidney stones. He has had a left underarm node that was removed that was benign, and a left breast node biopsy that was benign. He also has had a right knee replacement. In terms of allergies, the patient is noted to be allergic to JENNIFER INHIBITORS and PENICILLIN, and his medications that he takes as an outpatient include Bystolic and amlodipine. He had been taking a statin, but he no longer does such. FAMILY HISTORY: Noncontributory. His father and mother, the health was unknown, and he has a child in good general health. The patient apparently smokes daily and he drinks alcohol, which he reports as socially, but the medical record it says on a daily basis. He says he drinks from time to time, here and there, but there are reports that he said that he drinks 3-4 shots of gin every day. His last drink was yesterday night before he started vomiting. Here in the hospital, his current medications include Zofran, heparin subcutaneous, Dilaudid, Protonix, and IV fluid, and his current vital signs, he is afebrile, he is not tachycardic, and his blood pressure is 148/90. PHYSICAL EXAMINATION: General: He appears to be in no acute distress. Well-developed, well-nourished, gentleman. HEENT: Sclerae anicteric. Neck: Supple. Lungs: Clear. Heart: Regular. Abdomen: Distended. Obese. The bowel sounds are diminished. There is tenderness to palpation in the epigastric region. There is no mass. There is rebound or guarding. LABORATORY DATA: Notable in that his sodium 138, potassium 4.1, chloride 103, bicarbonate 28, BUN 14, creatinine 1.6, calcium 9.1, total bilirubin 1.1, AST 50, ALT 37, alkaline phosphatase 129, total protein 7.3, albumin 3.5. His coagulation panel are normal with an INR of 1, and his white count on admission was 7.4, today it is 11.8. He has an H&H of 11.8/35.2, an MCV of 97, and he has 187,000 platelets. Now, when he came in, he had a CT scan done of the abdomen and pelvis; however, the exam was limited, as there was no oral or IV contrast. Therefore, it is very difficult to evaluate the bowel on this film, but apparently there was no evidence of intestinal obstruction or acute diverticulitis. The appendix appeared normal. There was gallstones without evidence of cholecystitis or biliary ductal dilatation. There was nonobstructing kidney stone in the right kidney. There was no other acute findings, but again the exam was quite limited, and today he had a followup FUA which revealed a nonspecific bowel gas pattern without any evidence of obstruction. IMPRESSION: It is my impression that the patient is a 72-year-old gentleman with a history of hypertension, hyperlipidemia, who has history of renal carcinoma status post a partial left nephrectomy and prostate cancer status post radiation therapy two years ago. He has had recurrent colonoscopies over the years with findings of colonic polyps and diverticulosis. He now comes in acutely after eating food the other night, some of which was ice cream with repetitive vomiting and abdominal pain. He has presentation and exam findings raising concern of possible or partial small bowel obstruction. The CAT scan did not show this, but it is limited due to the lack of contrast. The issue is, his white count has risen while he has been in the hospital. For now, I would recommend, as you are doing, aggressive IV fluid, proton pump inhibition and pain management. I think he probably would benefit if he has any more episodes of vomiting, certainly from an NG tube, to try to decompress the bowel. It is unclear if this could be a gastroenteritis, although he has not had any diarrhea at this point, and therefore I think that is less likely. My concern would be a partial bowel obstruction, and I would recommend that if he does not improve significantly in the next 24 hours, he should undergo repeat CAT scan with oral and IV contrast. We will continue to be available to aid in management of this patient. FLORIN DILLARD M.D. [id number]
--- NOTE | 2017-04-25 21:38 | EKG ---
Test Reason : Blood Pressure : / mmHG Vent. Rate : 065 BPM Atrial Rate : 065 BPM P-R Int : 172 ms QRS Dur : 084 ms QT Int : 412 ms P-R-T Axes : 039 -10 024 degrees QTc Int : 428 ms NORMAL SINUS RHYTHM LEFT ATRIAL ENLARGEMENT NONSPECIFIC T WAVE ABNORMALITY ABNORMAL ECG WHEN COMPARED WITH ECG OF 28-JAN-2016 07:53, NO SIGNIFICANT CHANGE WAS FOUND Confirmed by IVANA BLACK, MILENA ([id number]) on 04/25/2017 9:38:29 PM Referred By: Confirmed By:MILENA HEATH MD
[2017-04-26] MEDS: PANTOPRAZOLE SODIUM 80 MG in SODIUM CHLORIDE 100 ML IVPB SCH ×2 (04:59→15:11)
[2017-04-26] MEDS: D5-1/2NS+20 MEQ KCL - 20 MEQ/1,000 ML INFUS.BAG IV SCH ×2 (05:18→15:12)
[2017-04-26] MEDS: HYDROmorphone HCL CARPU-JECT 2 MG/1 ML DISP.SYRIN IVPUSH PRN ×3 (06:31→22:56)
--- NOTE | 2017-04-26 07:15 | PN ---
Progress Note, Physician Chief Complaint: abdominal pain and vomiting History of Present Illness: 72yo M with HTN, HLD, h/o renal and prostate CA, kidney stones, gallstones, daily smoker and drinker, began having bilious vomiting possibly since saturday after ice cream, which persisted every 15-30 minutes through the morning. He has not had a bowel moment but has started to pass flatus. He has had no additional vominting and nausea is improved. He reports improvement of abdominal pain - Current Medication List Current Medications: Active Medications Heparin Sodium (Porcine) (Heparin -) 5,000 unit SQ BID [facility] Last Admin: 04/25/17 21:33 Dose: 5,000 unit Hydromorphone HCl (Dilaudid Injection -) 1 mg IVPUSH Q4H PRN PRN Reason: PAIN Last Admin: 04/26/17 06:31 Dose: 1 mg Potassium Chloride/Dextrose/Sod Cl (D5-1/2ns+20 Meq Kcl -) 20 meq in 1,000 mls @ 125 mls/hr IV ASDIR [facility] Last Admin: 04/26/17 05:18 Dose: 125 mls/hr Pantoprazole Sodium 80 mg/ (Sodium Chloride) 100 mls @ 10 mls/hr IVPB Q10H [facility] PRN Reason: 8 MG/HR Last Admin: 04/26/17 04:59 Dose: 10 mls/hr Ondansetron HCl (Zofran Injection) 4 mg IVPUSH Q6H PRN PRN Reason: NAUSEA - Objective Vital Signs: Vital Signs Temperature 99.0 F 04/26/17 05:03 Pulse Rate 91 H 04/26/17 05:03 Respiratory Rate 20 04/26/17 05:03 Blood Pressure 133/67 04/26/17 05:03 O2 Sat by Pulse Oximetry (%) 95 04/25/17 19:58 Constitutional: Yes: Well Nourished, No Distress Eyes: Yes: Conjunctiva Clear HENT: Yes: Atraumatic, Normocephalic Neck: Yes: Supple, Trachea Midline Cardiovascular: Yes: Regular Rate and Rhythm, S1, S2. No: Murmur Respiratory: Yes: Regular, CTA Bilaterally. No: Wheezes Gastrointestinal: Yes: Soft, Distention, Hypoactive Bowel Sounds. No: Tenderness, Tenderness, Epigastrium, Tenderness, Rebound, Vomiting Genitourinary: No: CVA Tenderness - Left, CVA Tenderness - Right Extremities: No: Cool, Cyanosis Edema: No Neurological: Yes: Alert, Oriented Psychiatric: Yes: Alert, Oriented Labs: CBC, BMP 04/25/17 07:30 04/25/17 07:30 INR, PTT INR 1.03 (0.82-1.09) 04/25/17 07:30 Problem List - Problems (1) Abdominal pain Assessment/Plan: Abdominal pain is improved this morining. Distension is persistent, he feel nausea but has not vomited. There was no evidence of obstruction, appendicitis, cholecystitis, diverticulitis on CT. He has been afebrile, he is distended but non-tender, elevated wbc 11.8-14.4. Continue NPO/IVF agree with repeat CT Abdomen/ Pelvis with IV and PO contrast Correct electrolytes BP meds with sips follow clinical exams appreciate GI input will continue to follow Code(s): R10.9 - UNSPECIFIED ABDOMINAL PAIN Qualifiers: Abdominal location: generalized Qualified Code(s): R10.84 - Generalized abdominal pain (2) Vomiting with nausea, not intractable Assessment/Plan: abdominal xray this morning given abdominal distension Code(s): R11.2 - NAUSEA WITH VOMITING, UNSPECIFIED Qualifiers: Vomiting type: unspecified Qualified Code(s): R11.2 - Nausea with vomiting , unspecified (3) Nausea Code(s): R11.0 - NAUSEA
[2017-04-26 07:47] LABS: BASOPHIL 0.1 % (0-2.0); EOSINOPHIL 0.2 % (0-4.5); MCH 31.7 pg (25.7-33.7); MCHC 32.9 g/dl (32.0-35.9); MEAN CELL VOLUME 96.5 fl (80-96); MEAN PLT VOLUME 7.8 fl (7.5-11.1); NEUTROPHILS 91.2 % (42.8-82.8); PLATELET COUNT 172 K/MM3 (134-434); RDW 14.3 % (11.9-15.9); WHITE BLOOD COUNT 14.4 K/mm3 (4.0-10.0)
[2017-04-26 08:29] LABS: ALBUMIN 3.1 g/dl (3.4-5.0); ANION GAP 9 (8-16); BILIRUBIN,TOTAL 0.9 mg/dL (0.2-1.0); CALCIUM 8.8 mg/dL (8.5-10.1); CO2 25 mmol/L (21-32); CREATININE 1.6 mg/dL (0.7-1.3); GLUCOSE,RANDOM 119 mg/dL (74-106); SGOT/AST 37 U/L (15-37); SGPT/ALT 34 U/L (12-78); TOT PROT 6.7 g/dl (6.4-8.2)
[2017-04-26 08:30] LABS: ALK PHOS 128 U/L (45-117)
--- NOTE | 2017-04-26 09:27 | PN ---
Progress Note, Physician History of Present Illness: FEELS BETTER - Current Medication List Current Medications: Active Medications Heparin Sodium (Porcine) (Heparin -) 5,000 unit SQ BID [facility] Last Admin: 04/25/17 21:33 Dose: 5,000 unit Hydromorphone HCl (Dilaudid Injection -) 1 mg IVPUSH Q4H PRN PRN Reason: PAIN Last Admin: 04/26/17 06:31 Dose: 1 mg Potassium Chloride/Dextrose/Sod Cl (D5-1/2ns+20 Meq Kcl -) 20 meq in 1,000 mls @ 125 mls/hr IV ASDIR [facility] Last Admin: 04/26/17 05:18 Dose: 125 mls/hr Pantoprazole Sodium 80 mg/ (Sodium Chloride) 100 mls @ 10 mls/hr IVPB Q10H [facility] PRN Reason: 8 MG/HR Last Admin: 04/26/17 04:59 Dose: 10 mls/hr Ondansetron HCl (Zofran Injection) 4 mg IVPUSH Q6H PRN PRN Reason: NAUSEA - Objective Vital Signs: Vital Signs Temperature 98.9 F 04/26/17 07:49 Pulse Rate 102 H 04/26/17 07:49 Respiratory Rate 20 04/26/17 07:49 Blood Pressure 150/81 04/26/17 07:49 O2 Sat by Pulse Oximetry (%) 98 04/26/17 07:52 Cardiovascular: Yes: Regular Rate and Rhythm Respiratory: Yes: Regular, CTA Bilaterally Gastrointestinal: Yes: Normal Bowel Sounds, Soft, Tenderness (MILD) Labs: CBC, BMP 04/26/17 07:00 04/26/17 07:00 INR, PTT INR 1.03 (0.82-1.09) 04/25/17 07:30 Problem List - Problems (1) Gastritis Assessment/Plan: PPI GI CONSULT Code(s): K29.70 - GASTRITIS, UNSPECIFIED, WITHOUT BLEEDING (2) CKD (chronic kidney disease) Assessment/Plan: MONITOR LABS CR STABLE Code(s): N18.9 - CHRONIC KIDNEY DISEASE, UNSPECIFIED (3) Abdominal pain Assessment/Plan: MAYBE AGE NPO IVF GI AND ID CONSULT STOOL CULTURES WBC RISING--FUA--ID FOLLOW UP Code(s): R10.9 - UNSPECIFIED ABDOMINAL PAIN Qualifiers: Abdominal location: generalized Qualified Code(s): R10.84 - Generalized abdominal pain (4) Hyperlipidemia Code(s): E78.5 - HYPERLIPIDEMIA, UNSPECIFIED Qualifiers: Hyperlipidemia type: unspecified Qualified Code(s): E78.5 - Hyperlipidemia , unspecified
[2017-04-26] MEDS: HEPARIN NA (PORCINE) 5,000 UNITS/ML 1ML VIAL SQ SCH ×2 (10:26→22:32)
--- NOTE | 2017-04-26 12:34 | PN ---
Progress Note, Physician History of Present Illness: Awake, alert C/O diffuse abdominal discomfort Reports + small BM, + flatus No recurrent N/V Afebrile WBC increased BC (-) - Current Medication List Current Medications: Active Medications Heparin Sodium (Porcine) (Heparin -) 5,000 unit SQ BID [facility] Last Admin: 04/26/17 10:26 Dose: 5,000 unit Hydromorphone HCl (Dilaudid Injection -) 1 mg IVPUSH Q4H PRN PRN Reason: PAIN Last Admin: 04/26/17 06:31 Dose: 1 mg Potassium Chloride/Dextrose/Sod Cl (D5-1/2ns+20 Meq Kcl -) 20 meq in 1,000 mls @ 125 mls/hr IV ASDIR [facility] Last Admin: 04/26/17 05:18 Dose: 125 mls/hr Pantoprazole Sodium 80 mg/ (Sodium Chloride) 100 mls @ 10 mls/hr IVPB Q10H [facility] PRN Reason: 8 MG/HR Last Admin: 04/26/17 04:59 Dose: 10 mls/hr Ondansetron HCl (Zofran Injection) 4 mg IVPUSH Q6H PRN PRN Reason: NAUSEA - Objective Vital Signs: Vital Signs Temperature 98.9 F 04/26/17 07:49 Pulse Rate 102 H 04/26/17 07:49 Respiratory Rate 20 04/26/17 07:49 Blood Pressure 150/81 04/26/17 07:49 O2 Sat by Pulse Oximetry (%) 98 04/26/17 07:52 Constitutional: Yes: No Distress Cardiovascular: Yes: Regular Rate and Rhythm, S1, S2 Respiratory: Yes: CTA Bilaterally Gastrointestinal: Yes: Other (diminished BS; abdomen distended/tympanitic Mild diffuse tenderness). No: Normal Bowel Sounds Edema: No Labs: CBC, BMP 04/26/17 07:00 04/26/17 07:00 INR, PTT INR 1.03 (0.82-1.09) 04/25/17 07:30 Assessment/Plan Ileus v. partial bowel obstruction Leukocytosis ? leukemoid rxn Observe off antibiotics GI/Surgical follow up
[2017-04-26] MEDS ORDERED: PT OWN MED DRAWER 7, Y5N ONE (14:54)
--- NOTE | 2017-04-26 15:40 | PN ---
GI Progress Note Subjective: GASTROENTEROLOGY FOLLOW UP NOTE: PT APPEARS A LITTLE BIT MORE COMFORTABLE TODAY AND HE REPORTS PASSING FLATUS HOWEVER, HE HAS NOT HAD A BM AND STILL ADMITS TO RLQ PAIN AND NAUSEA, BUT NO VOMITING NO F/C/S AT ALL - Objective Vital Signs: Vital Signs Temperature 98.9 F 04/26/17 07:49 Pulse Rate 102 H 04/26/17 07:49 Respiratory Rate 20 04/26/17 07:49 Blood Pressure 150/81 04/26/17 07:49 O2 Sat by Pulse Oximetry (%) 98 04/26/17 07:52 Constitutional: Well Nourished, No Distress, Calm Eyes: Yes: WNL Cardiovascular: Yes: WNL (+BS, SOFTER WTH LESS DISTENTION--HOWEVER, STILL VERY TENDER TO MILD PALPATION IN THE RLQ/ RUQ/ LUQ AND EPIGASTRIC REGION) Labs: CBC, BMP 04/26/17 07:00 04/26/17 07:00 INR, PTT INR 1.03 (0.82-1.09) 04/25/17 07:30 Assessment/Plan 72M WITH HISTORY OF PRIOR ABDOMINAL SURGERY ADMIT WTIH CLINICAL CONCERN OF SBO TODAY HE APPEARS SLIGHTLY MORE COMFORTABLE WITH LESS ABD DISTENTION HOWEVER, 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 F /U EXAM/ LABS/ SURGICAL OBSERVATION/ CT SCAN MD GILMA
[2017-04-27] MEDS: PANTOPRAZOLE SODIUM 80 MG in SODIUM CHLORIDE 100 ML IVPB SCH ×3 (01:17→21:02)
[2017-04-27] MEDS: HYDROmorphone HCL CARPU-JECT 2 MG/1 ML DISP.SYRIN IVPUSH PRN ×3 (03:37→16:52)
[2017-04-27] MEDS: ALBUTEROL SO4 2.5/IPRATROPIUM 0.5 INH SOL 3 ML VIAL.NEB. NEB SCH ×4 (06:07→23:01)
--- NOTE | 2017-04-27 08:35 | PN ---
Progress Note, Physician Chief Complaint: abdominal pain and vomiting History of Present Illness: 72yo M with HTN, HLD, h/o renal and prostate CA, kidney stones, gallstones, daily smoker and drinker, he abdominal pain is improved. He has no additional vomiting, nausea is resolved, he has been afebrile and has no complaints - Current Medication List Current Medications: Active Medications Albuterol/Ipratropium (Duoneb -) 1 amp NEB QIDR [facility] Last Admin: 04/27/17 06:07 Dose: 1 amp Heparin Sodium (Porcine) (Heparin -) 5,000 unit SQ BID [facility] Last Admin: 04/26/17 22:32 Dose: 5,000 unit Hydromorphone HCl (Dilaudid Injection -) 1 mg IVPUSH Q4H PRN PRN Reason: PAIN Last Admin: 04/27/17 08:21 Dose: 1 mg Potassium Chloride/Dextrose/Sod Cl (D5-1/2ns+20 Meq Kcl -) 20 meq in 1,000 mls @ 125 mls/hr IV ASDIR [facility] Last Admin: 04/26/17 15:12 Dose: 125 mls/hr Pantoprazole Sodium 80 mg/ (Sodium Chloride) 100 mls @ 10 mls/hr IVPB Q10H [facility] PRN Reason: 8 MG/HR Last Admin: 04/27/17 01:17 Dose: 10 mls/hr Ondansetron HCl (Zofran Injection) 4 mg IVPUSH Q6H PRN PRN Reason: NAUSEA - Objective Vital Signs: Vital Signs Temperature 98.7 F 04/27/17 07:59 Pulse Rate 100 H 04/27/17 07:59 Respiratory Rate 18 04/27/17 07:59 Blood Pressure 135/88 04/27/17 07:59 O2 Sat by Pulse Oximetry (%) 98 04/26/17 21:00 Vital Signs Period Temp Pulse Resp BP Sys/Shine Pulse Ox Last 24 Hr 98.2 F-98.7 F 92-106 18-20 135-152/81-93 98-99 Constitutional: Yes: Well Nourished, No Distress, Calm Eyes: Yes: Conjunctiva Clear, EOM Intact HENT: Yes: Atraumatic, Normocephalic Neck: Yes: Supple, Trachea Midline Cardiovascular: Yes: Regular Rate and Rhythm, S1, S2. No: Murmur Respiratory: Yes: Regular, CTA Bilaterally Gastrointestinal: Yes: Normal Bowel Sounds, Soft, Distention, Tenderness ( minimal diffuse, - rebound, - guarding). No: Hepatomegaly, Hernia, Tenderness, Epigastrium, Tenderness, Rebound Genitourinary: No: CVA Tenderness - Left, CVA Tenderness - Right Peripheral Pulses WNL: Yes Peripheral Pulses: Left Doralis Pedis: 2+, Right Dorsalis Pedis: 2+ Neurological: Yes: Alert, Oriented Psychiatric: Yes: Alert, Oriented Labs: Intake & Output 04/26/17 04/27/17 04/27/17 23:59 07:59 15:59 Intake Total 1460 1570 Output Total 600 Balance 1460 970 Intake: IV 1250 1350 D5-1/2NS+20 MEQ KCL - 20 1250 1350 meq In 1,000 ml @ 125 mls /hr IV ASDIR [facility] Rx#: [id number] IVPB 210 220 Oral 0 0 Output: Urine 600 Void 600 Other: Voiding Method Toilet Toilet # Unmeasured Voids Void 2 4 Bowel Movement No No CBC, BMP 04/26/17 07:00 04/26/17 07:00 Abnormal Lab Results 04/27/17 04/27/17 10:00 10:00 WBC 12.4 H RBC 3.48 L Hgb 11.1 L Hct 33.7 L MCV 96.8 H Neutrophils % 87.9 H Lymphocytes % 4.7 L D Creatinine 1.7 H Random Glucose 139 H Calcium 8.2 L Total Bilirubin 1.5 H D AST 277 H D ALT 133 H D Alkaline Phosphatase 238 H D Albumin 2.9 L - ....Imaging Cat Scan: Pending, Image Reviewed (large gallstone, pericholecystic fluid) Problem List - Problems (1) Cholelithiasis and cholecystitis without obstruction Assessment/Plan: Discuss CT scan findings and surgical options tomorrow. Code(s): K80.10 - CALCULUS OF GALLBLADDER W CHRONIC CHOLECYST W/O OBSTRUCTION Qualifiers: Cholelithiasis location: gallbladder and bile duct Cholecystitis acuity: acute and chronic Qualified Code(s): K80.66 - Calculus of gallbladder and bile duct with acute and chronic cholecystitis without obstruction (2) Abdominal pain Assessment/Plan: Abdominal pain is improved this morining. Distension is persistent, he feel nausea but has not vomited. There was no evidence of obstruction, appendicitis, cholecystitis, diverticulitis on CT. He has been afebrile, he is distended but non-tender, elevated wbc 11.8-15.1. Continue NPO/IVF CT Abdomen/ Pelvis with PO contrast - signs of cholecystictis, large gallstone Correct electrolytes follow clinical exams will continue to follow Code(s): R10.9 - UNSPECIFIED ABDOMINAL PAIN Qualifiers: Abdominal location: generalized Qualified Code(s): R10.84 - Generalized abdominal pain (3) Vomiting with nausea, not intractable Code(s): R11.2 - NAUSEA WITH VOMITING, UNSPECIFIED Qualifiers: Vomiting type: unspecified Qualified Code(s): R11.2 - Nausea with vomiting , unspecified (4) Nausea Code(s): R11.0 - NAUSEA
--- NOTE | 2017-04-27 09:56 | PN ---
Progress Note, Physician History of Present Illness: FEELS BETTER NO BM - Current Medication List Current Medications: Active Medications Albuterol/Ipratropium (Duoneb -) 1 amp NEB QIDR [facility] Last Admin: 04/27/17 06:07 Dose: 1 amp Heparin Sodium (Porcine) (Heparin -) 5,000 unit SQ BID [facility] Last Admin: 04/26/17 22:32 Dose: 5,000 unit Hydromorphone HCl (Dilaudid Injection -) 1 mg IVPUSH Q4H PRN PRN Reason: PAIN Last Admin: 04/27/17 08:21 Dose: 1 mg Potassium Chloride/Dextrose/Sod Cl (D5-1/2ns+20 Meq Kcl -) 20 meq in 1,000 mls @ 125 mls/hr IV ASDIR [facility] Last Admin: 04/26/17 15:12 Dose: 125 mls/hr Pantoprazole Sodium 80 mg/ (Sodium Chloride) 100 mls @ 10 mls/hr IVPB Q10H [facility] PRN Reason: 8 MG/HR Last Admin: 04/27/17 01:17 Dose: 10 mls/hr Ondansetron HCl (Zofran Injection) 4 mg IVPUSH Q6H PRN PRN Reason: NAUSEA - Objective Vital Signs: Vital Signs Temperature 98.7 F 04/27/17 07:59 Pulse Rate 100 H 04/27/17 07:59 Respiratory Rate 18 04/27/17 07:59 Blood Pressure 135/88 04/27/17 07:59 O2 Sat by Pulse Oximetry (%) 99 04/27/17 09:00 Cardiovascular: Yes: Regular Rate and Rhythm Respiratory: Yes: Regular, CTA Bilaterally Gastrointestinal: Yes: Soft, Tenderness (MILD) Labs: CBC, BMP 04/26/17 07:00 04/26/17 07:00 INR, PTT INR 1.03 (0.82-1.09) 04/25/17 07:30 Problem List - Problems (1) Gastritis Assessment/Plan: PPI GI CONSULT Code(s): K29.70 - GASTRITIS, UNSPECIFIED, WITHOUT BLEEDING (2) CKD (chronic kidney disease) Assessment/Plan: MONITOR LABS CR STABLE Code(s): N18.9 - CHRONIC KIDNEY DISEASE, UNSPECIFIED (3) Abdominal pain Assessment/Plan: MAYBE AGE--R/O OBSTRUCTION F/U CT NPO IVF GI AND ID CONSULT STOOL CULTURES WBC RISING--FUA--ID FOLLOW UP Code(s): R10.9 - UNSPECIFIED ABDOMINAL PAIN Qualifiers: Abdominal location: generalized Qualified Code(s): R10.84 - Generalized abdominal pain (4) Hyperlipidemia Code(s): E78.5 - HYPERLIPIDEMIA, UNSPECIFIED Qualifiers: Hyperlipidemia type: unspecified Qualified Code(s): E78.5 - Hyperlipidemia , unspecified (5) Abnormal LFTs Assessment/Plan: RPEEAT CT -- --HEPATITIS PANEL GI FOLLOW UP Code(s): R79.89 - OTHER SPECIFIED ABNORMAL FINDINGS OF BLOOD CHEMISTRY
[2017-04-27] MEDS: HEPARIN NA (PORCINE) 5,000 UNITS/ML 1ML VIAL SQ SCH ×2 (10:17→21:03)
[2017-04-27] MEDS: D5-1/2NS+20 MEQ KCL - 20 MEQ/1,000 ML INFUS.BAG IV SCH ×3 (10:17→20:20)
--- NOTE | 2017-04-27 10:18 | PN ---
Progress Note, Physician History of Present Illness: Awake, alert C/O R abdominal discomfort Reports + + flatus,but no BM today No recurrent N/V No c/o fever/ chills Today's CBC pending - Current Medication List Current Medications: Active Medications Albuterol/Ipratropium (Duoneb -) 1 amp NEB QIDR [facility] Last Admin: 04/27/17 06:07 Dose: 1 amp Heparin Sodium (Porcine) (Heparin -) 5,000 unit SQ BID [facility] Last Admin: 04/26/17 22:32 Dose: 5,000 unit Hydromorphone HCl (Dilaudid Injection -) 1 mg IVPUSH Q4H PRN PRN Reason: PAIN Last Admin: 04/27/17 08:21 Dose: 1 mg Potassium Chloride/Dextrose/Sod Cl (D5-1/2ns+20 Meq Kcl -) 20 meq in 1,000 mls @ 125 mls/hr IV ASDIR [facility] Last Admin: 04/26/17 15:12 Dose: 125 mls/hr Pantoprazole Sodium 80 mg/ (Sodium Chloride) 100 mls @ 10 mls/hr IVPB Q10H [facility] PRN Reason: 8 MG/HR Last Admin: 04/27/17 01:17 Dose: 10 mls/hr Ondansetron HCl (Zofran Injection) 4 mg IVPUSH Q6H PRN PRN Reason: NAUSEA - Objective Vital Signs: Vital Signs Temperature 98.7 F 04/27/17 07:59 Pulse Rate 100 H 04/27/17 07:59 Respiratory Rate 18 04/27/17 07:59 Blood Pressure 135/88 04/27/17 07:59 O2 Sat by Pulse Oximetry (%) 99 04/27/17 09:00 Constitutional: Yes: No Distress Eyes: Yes: Conjunctiva Clear Cardiovascular: Yes: Regular Rate and Rhythm, S1, S2 Respiratory: Yes: Diminished Gastrointestinal: Yes: Soft, Other (diminished bowel sounds. Abdomen distended, tympanitic. No tenderness elicited). No: Normal Bowel Sounds Labs: CBC, BMP 04/26/17 07:00 04/26/17 07:00 INR, PTT INR 1.03 (0.82-1.09) 04/25/17 07:30 Assessment/Plan Ileus v. partial bowel obstruction Leukocytosis ? leukemoid rxn Off antibiotics For repeat CT today GI/Surgical follow up
[2017-04-27 10:25] LABS: BASOPHIL 0.3 % (0-2.0); EOSINOPHIL 0.7 % (0-4.5); MEAN CELL VOLUME 96.8 fl (80-96); MEAN PLT VOLUME 7.8 fl (7.5-11.1); NEUTROPHILS 87.9 % (42.8-82.8); PLATELET COUNT 194 K/MM3 (134-434); RDW 14.1 % (11.9-15.9); WHITE BLOOD COUNT 12.4 K/mm3 (4.0-10.0)
[2017-04-27 11:05] LABS: ALBUMIN 2.9 g/dl (3.4-5.0); ALK PHOS 238 U/L (45-117); ANION GAP 10 (8-16); BILIRUBIN,TOTAL 1.5 mg/dL (0.2-1.0); CALCIUM 8.2 mg/dL (8.5-10.1); CO2 21 mmol/L (21-32); CREATININE 1.7 mg/dL (0.7-1.3); GLUCOSE,RANDOM 139 mg/dL (74-106); SGOT/AST 277 U/L (15-37); SGPT/ALT 133 U/L (12-78); TOT PROT 6.9 g/dl (6.4-8.2)
--- NOTE | 2017-04-27 14:08 | PN ---
GI Progress Note Subjective: GASTROENTEROLOGY FOLLOW UP NOTE: PT APPEARS MORE COMFORTABLE TODAY AND HE REPORTS STILL PASSING FLATUS HOWEVER, HE HAS NOT HAD A BM AND STILL ADMITS TO RLQ PAIN AND NAUSEA, BUT NO VOMITING NO F/C/S HE IS NOW DRINKOING ORAL CONTRAST AT BEDSIDE FOR CT SCAN - Objective Vital Signs: Vital Signs Temperature 98.4 F 04/27/17 13:55 Pulse Rate 96 H 04/27/17 13:55 Respiratory Rate 18 04/27/17 13:55 Blood Pressure 160/91 04/27/17 13:55 O2 Sat by Pulse Oximetry (%) 99 04/27/17 09:00 Constitutional: Well Nourished, No Distress, Calm Cardiovascular: Yes: WNL (+BS/ SOFTER NO REBOUND OR 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 DIRECTOR TO PALPATIOJNIN THE RLQ AND RUQ) Labs: CBC, BMP 04/27/17 10:00 04/27/17 10:00 INR, PTT INR 1.03 (0.82-1.09) 04/25/17 07:30 Assessment/Plan 72M WITH PRIOR ABDOMINAL SURGERY ADMIT WITH OBSTRUCTIVE SX'S RAISING CONCERN OF SBO/PARTIAL SBO HAD COLONOSOCPY 10/2016 WITH DIVERTICULOSIS AND HEMORRHOIDS PT REFUSED NGT ON ADMIT AND HAS HAD NO BM'S SINCE ADMISSION CONTINUES TO PASS FLATUS AND APPEARS CLINICALLY IMPROVED HOWEVER STILL FOCAL PAIN/ TENDERNESS IN RUQ/RLQ, WBC ELEVATION AND NEW RISE IN LFT'S SUGGESTIVE OF ETIHER A EVOLVING PROCESS IN THE RUQ OR MEDICATION SIDE EFFECT THEY WERE NOT ELEVATED ON ADMISSION AGREE WITH CT SCAN/ F/U LFT'S / OBSERVATION D/W DR JOEL DILLARD MD
[2017-04-28] MEDS: HYDROmorphone HCL CARPU-JECT 2 MG/1 ML DISP.SYRIN IVPUSH PRN ×2 (00:45→10:35)
[2017-04-28] MEDS: PANTOPRAZOLE SODIUM 80 MG in SODIUM CHLORIDE 100 ML IVPB SCH ×4 (00:48→16:59)
[2017-04-28] MEDS: D5-1/2NS+20 MEQ KCL - 20 MEQ/1,000 ML INFUS.BAG IV SCH ×2 (04:28→12:27)
[2017-04-28] MEDS: ALBUTEROL SO4 2.5/IPRATROPIUM 0.5 INH SOL 3 ML VIAL.NEB. NEB SCH ×4 (06:10→23:16)
[2017-04-28 07:45] LABS: BASOPHIL 0.3 % (0-2.0); EOSINOPHIL 1.1 % (0-4.5); MCH 32.1 pg (25.7-33.7); MCHC 33.5 g/dl (32.0-35.9); MEAN CELL VOLUME 95.9 fl (80-96); MEAN PLT VOLUME 7.6 fl (7.5-11.1); NEUTROPHILS 85.6 % (42.8-82.8); PLATELET COUNT 186 K/MM3 (134-434); RDW 14.6 % (11.9-15.9); WHITE BLOOD COUNT 12.1 K/mm3 (4.0-10.0)
[2017-04-28 08:29] LABS: ALBUMIN 2.6 g/dl (3.4-5.0); ANION GAP 9 (8-16); BILIRUBIN,TOTAL 1.7 mg/dL (0.2-1.0); CALCIUM 8.3 mg/dL (8.5-10.1); CO2 24 mmol/L (21-32); CREATININE 1.5 mg/dL (0.7-1.3); GLUCOSE,RANDOM 112 mg/dL (74-106); SGOT/AST 180 U/L (15-37)
[2017-04-28 08:35] LABS: ALK PHOS 270 U/L (45-117); SGPT/ALT 156 U/L (12-78); TOT PROT 6.3 g/dl (6.4-8.2)
[2017-04-28] MEDS: HEPARIN NA (PORCINE) 5,000 UNITS/ML 1ML VIAL SQ SCH ×2 (09:33→22:31)
[2017-04-28] MEDS ORDERED: CEFTRIAXONE 2 GM in DEXTROSE 5%-WATER - 100 ML IVPB SCH (10:15)
--- NOTE | 2017-04-28 10:15 | PN ---
Progress Note, Physician - Current Medication List Current Medications: Active Medications Albuterol/Ipratropium (Duoneb -) 1 amp NEB QIDR [facility] Last Admin: 04/28/17 06:10 Dose: 1 amp Heparin Sodium (Porcine) (Heparin -) 5,000 unit SQ BID [facility] Last Admin: 04/28/17 09:33 Dose: 5,000 unit Hydromorphone HCl (Dilaudid Injection -) 1 mg IVPUSH Q4H PRN PRN Reason: PAIN Last Admin: 04/28/17 00:45 Dose: 1 mg Potassium Chloride/Dextrose/Sod Cl (D5-1/2ns+20 Meq Kcl -) 20 meq in 1,000 mls @ 125 mls/hr IV ASDIR [facility] Last Admin: 04/28/17 04:28 Dose: 125 mls/hr Pantoprazole Sodium 80 mg/ (Sodium Chloride) 100 mls @ 10 mls/hr IVPB Q10H [facility] PRN Reason: 8 MG/HR Last Admin: 04/28/17 05:59 Dose: Not Given Ceftriaxone Sodium 2 gm/ (Dextrose) 100 mls @ 200 mls/hr IVPB DAILY [facility] Metronidazole (Flagyl 500mg Premixed Ivpb -) 500 mg in 100 mls @ 100 mls/hr IVPB Q8H-IV [facility] Ondansetron HCl (Zofran Injection) 4 mg IVPUSH Q6H PRN PRN Reason: NAUSEA - Objective Vital Signs: Vital Signs Temperature 99.3 F 04/28/17 06:06 Pulse Rate 93 H 04/28/17 06:06 Respiratory Rate 20 04/28/17 06:06 Blood Pressure 132/83 04/28/17 06:06 O2 Sat by Pulse Oximetry (%) 99 04/27/17 20:30 Labs: CBC, BMP 04/28/17 06:20 04/28/17 06:20 INR, PTT INR 1.03 (0.82-1.09) 04/25/17 07:30 Problem List - Problems (1) Cholecystitis, acute Assessment/Plan: D/W DR IBRAHIM--IV ABX SURGICAL FOLLOW UP Code(s): K81.0 - ACUTE CHOLECYSTITIS (2) Gastritis Code(s): K29.70 - GASTRITIS, UNSPECIFIED, WITHOUT BLEEDING (3) CKD (chronic kidney disease) Code(s): N18.9 - CHRONIC KIDNEY DISEASE, UNSPECIFIED (4) Abdominal pain Assessment/Plan: F/U CT--ACUTE CHOLECYSTITIS NPO IVF GI AND ID CONSULT--F/U STOOL CULTURES IV ABX Code(s): R10.9 - UNSPECIFIED ABDOMINAL PAIN Qualifiers: Abdominal location: generalized Qualified Code(s): R10.84 - Generalized abdominal pain (5) Hyperlipidemia Code(s): E78.5 - HYPERLIPIDEMIA, UNSPECIFIED Qualifiers: Hyperlipidemia type: unspecified Qualified Code(s): E78.5 - Hyperlipidemia , unspecified (6) Abnormal LFTs Assessment/Plan: RPEEAT CT --ACUTE CHOECYSTITIS--ABX --HEPATITIS PANEL GI FOLLOW UP Code(s): R79.89 - OTHER SPECIFIED ABNORMAL FINDINGS OF BLOOD CHEMISTRY (7) Pneumonia Assessment/Plan: IV ABX Code(s): J18.9 - PNEUMONIA, UNSPECIFIED ORGANISM
--- NOTE | 2017-04-28 10:54 | PN ---
Progress Note, Physician Chief Complaint: abdominal pain and vomiting History of Present Illness: 72yo M with HTN, HLD, h/o renal and prostate CA, kidney stones, gallstones, daily smoker and drinker, he abdominal pain is improved. He has no additional vomiting, nausea is resolved, he has been afebrile and has no complaints - Current Medication List Current Medications: Active Medications Albuterol/Ipratropium (Duoneb -) 1 amp NEB QIDR [facility] Last Admin: 04/28/17 06:10 Dose: 1 amp Heparin Sodium (Porcine) (Heparin -) 5,000 unit SQ BID [facility] Last Admin: 04/28/17 09:33 Dose: 5,000 unit Hydromorphone HCl (Dilaudid Injection -) 1 mg IVPUSH Q4H PRN PRN Reason: PAIN Last Admin: 04/28/17 10:35 Dose: 1 mg Potassium Chloride/Dextrose/Sod Cl (D5-1/2ns+20 Meq Kcl -) 20 meq in 1,000 mls @ 125 mls/hr IV ASDIR [facility] Last Admin: 04/28/17 04:28 Dose: 125 mls/hr Pantoprazole Sodium 80 mg/ (Sodium Chloride) 100 mls @ 10 mls/hr IVPB Q10H [facility] PRN Reason: 8 MG/HR Last Admin: 04/28/17 10:44 Dose: 10 mls/hr Ceftriaxone Sodium 2 gm/ (Dextrose) 100 mls @ 200 mls/hr IVPB DAILY [facility] Metronidazole (Flagyl 500mg Premixed Ivpb -) 500 mg in 100 mls @ 100 mls/hr IVPB Q8H-IV [facility] Ondansetron HCl (Zofran Injection) 4 mg IVPUSH Q6H PRN PRN Reason: NAUSEA - Objective Vital Signs: Vital Signs Temperature 99.3 F 04/28/17 06:06 Pulse Rate 93 H 04/28/17 06:06 Respiratory Rate 20 04/28/17 06:06 Blood Pressure 132/83 04/28/17 06:06 O2 Sat by Pulse Oximetry (%) 99 04/27/17 20:30 Labs: CBC, BMP 04/28/17 06:20 04/28/17 06:20 INR, PTT INR 1.03 (0.82-1.09) 04/25/17 07:30 Problem List - Problems (1) Cholelithiasis and cholecystitis without obstruction Assessment/Plan: Discuss CT scan findings and surgical options were discussed. We recommended laparoscopic cholecystectomy, possible open. Risks benefits and alternatives were discussed. he has all of his questions answered to his satisfaction and sign an informed consent. Discussed the need for MRCP prior to surgery with Dr. Blackwell we will plan for an MRCP saturday morning NPO after midnight start empiric IV antibiotics Kindly optimize him medically and provide a risk stratification discussed plan with Dr. Garcia Code(s): K80.10 - CALCULUS OF GALLBLADDER W CHRONIC CHOLECYST W/O OBSTRUCTION Qualifiers: Cholelithiasis location: gallbladder and bile duct Cholecystitis acuity: acute and chronic Qualified Code(s): K80.66 - Calculus of gallbladder and bile duct with acute and chronic cholecystitis without obstruction (2) Abdominal pain Code(s): R10.9 - UNSPECIFIED ABDOMINAL PAIN Qualifiers: Abdominal location: generalized Qualified Code(s): R10.84 - Generalized abdominal pain (3) Vomiting with nausea, not intractable Code(s): R11.2 - NAUSEA WITH VOMITING, UNSPECIFIED Qualifiers: Vomiting type: unspecified Qualified Code(s): R11.2 - Nausea with vomiting , unspecified (4) Nausea Code(s): R11.0 - NAUSEA
[2017-04-28] MEDS ORDERED: cefTRIAXone 2 GM/100 ML BAG (PRE-DOCKED) IVPB SCH (11:00)
[2017-04-28] MEDS: METRONIDAZOLE 500 MG PREMIXED 500 MG/100 ML MG IVPB SCH ×2 (11:47→17:48)
[2017-04-28] MEDS: CEFTRIAXONE 2 GM in DEXTROSE 5%-WATER - 100 ML IVPB SCH (12:28)
--- NOTE | 2017-04-28 12:31 | CON.CARD ---
Consult Consult Specialty:: cardiology Referred by:: Jose Reason for Consultation:: Preoperative evaluation - History of Present Illness Chief Complaint: Nausea vomiting, abdominal pain History of Present Illness: The patient is a 72-year-old man, active smoker, alcohol consumer, history of hypertension, hyperlipidemia, prostate cancer, gallstones, now admitted with nausea vomiting and abdominal pain. Cholecystectomy is being planned. The patient reports no history of coronary artery disease nor angina. Denies paroxysmal nocturnal dyspnea and orthopnea. Only limited because of arthritic knee pains when he walks. - History Source History Provided By: Patient, Medical Record Limitations to Obtaining History: No Limitations - Past Medical History SUPPORT SERVICES COORDINATOR: No: Alzheimer's, CVA, Dementia, Migraine, Multiple Sclerosis, Peripheral Neuropathy, Parkinson's, Seizure, Syncope, TIA, Vertigo, Other Cardio/Vascular: Yes: HTN, Hyperlipdemia. No: AFIB, Aneurysm, Aortic Insufficiency, Aortic Stenosis, CAD, CHF, Deep Vein Thrombosis, CT, Mitral Insufficiency, Mitral Stenosis, Murmur, Pulmonary Hypertension, Other Pulmonary: No: Asthma, Bronchitis, Cancer, COPD, O2 Dependent, Pneumonia, Previously Intubated, Pulmonary Embolus, Pulmonary Fibrosis, Sleep Apnea, Other Gastrointestinal: Yes: Other (gallstones) Hepatobiliary: Yes: Cholelithiasis Renal/: Yes: Cancer (renal cell s/p L lower renal lobectomy; prostate s/p radiation only), Renal Calculi Musculoskeletal: Yes: Osteoarthritis (knees) Endocrine: No: Diabetes Mellitus (denies) - Past Surgical History Past Surgical History: Yes: Colonoscopy (with precancerous polyps, usually gets scoped [id number]), Joint Replacement (right knee), Nephrectomy (left lower partial ) - Alcohol/Substance Use Hx Alcohol Use: Yes (DAILY 3 GIN/DAY) History of Substance Use: reports: None - Smoking History Smoking history: Current every day smoker Have you smoked in the past 12 months: Yes Aproximately how many cigarettes per day: 10 (for 30 years) If you are a former smoker, when did you quit?: 5YRS AGO - Social History ADL: Independent Home Medications - Allergies Allergies/Adverse Reactions: Allergies Allergy/AdvReac Type Severity Reaction Status Date / Time JENNIFER Inhibitors Allergy Verified 04/24/17 10:19 Penicillins Allergy Verified 04/24/17 10:19 - Home Medications Home Medications: Ambulatory Orders Amlodipine Besylate [Norvasc -] 5 mg PO DAILY #30 tablet 01/31/16 Nebivolol [Bystolic -] 10 mg PO DAILY #30 tab 02/01/16 Review of Systems - Review of Systems Constitutional: reports: Weakness Eyes: reports: No Symptoms HENT: reports: No Symptoms Neck: reports: No Symptoms Cardiovascular: reports: No Symptoms Respiratory: reports: No Symptoms Gastrointestinal: reports: Abdominal Pain, Nausea, Vomiting Genitourinary: reports: No Symptoms Breasts: reports: No Symptoms Reported Musculoskeletal: reports: No Symptoms Integumentary: reports: No Symptoms Neurological: reports: No Symptoms Endocrine: reports: No Symptoms Hematology/Lymphatic: reports: No Symptoms Psychiatric: reports: No Symptoms Vital Signs: Vital Signs Temperature 99.3 F 04/28/17 06:06 Pulse Rate 93 H 04/28/17 06:06 Respiratory Rate 20 04/28/17 06:06 Blood Pressure 132/83 04/28/17 06:06 O2 Sat by Pulse Oximetry (%) 99 04/27/17 20:30 Constitutional: Yes: Well Nourished, No Distress, Calm Eyes: Yes: WNL, Conjunctiva Clear HENT: Yes: WNL, Atraumatic, Normocephalic Neck: Yes: WNL, Supple, Trachea Midline Respiratory: Yes: WNL, Regular, CTA Bilaterally Gastrointestinal: Yes: Normal Bowel Sounds, Soft, Tenderness Renal/: Yes: WNL Cardiovascular: Yes: WNL, Regular Rate and Rhythm JVD: No Carotid Bruit: No PMI: Non-Displaced Heart Sounds: Yes: S1, S2 Musculoskeletal: Yes: WNL Extremities: Yes: WNL Edema: No Peripheral Pulses WNL: Yes Integumentary: Yes: WNL Neurological: Yes: WNL ...Motor Strength: WNL Psychiatric: Yes: WNL - Other Data Labs, Other Data: CBC, BMP 04/28/17 06:20 04/28/17 06:20 INR, PTT INR 1.03 (0.82-1.09) 04/25/17 07:30 Assessment/Plan 72-year-old man presenting with nausea vomiting and abdominal pains, found to have cholelithiasis, surgery is being planned. The patient has been stable from the cardiac standpoint. He is in sinus rhythm. There are no acute ECG changes. I believe that the patient is medically optimized for cholecystectomy. Please achieve good pain control perioperatively. Keep hemoglobin above 10.0, as possible. Please proceed with surgery as planned. Do not hesitate to call us PRN.
[2017-04-28] MEDS ORDERED: LORazepam 1 MG TABLET PO ONE (12:52)
--- NOTE | 2017-04-28 15:31 | PN ---
GI Progress Note Subjective: GI F/U NOTE: NO COMPL;AINTS STILL MILD RUQ/RLQ PAIN NO N/V/F/C/S PASSING FLATUS HAD BM NO BLOOD OR BLEEDING - Objective Vital Signs: Vital Signs Temperature 100 F H 04/28/17 14:07 Pulse Rate 104 H 04/28/17 14:07 Respiratory Rate 18 04/28/17 14:07 Blood Pressure 135/82 04/28/17 14:07 O2 Sat by Pulse Oximetry (%) 99 04/27/17 20:30 Constitutional: Well Nourished, No Distress, Calm (+BS--MUCH SOFTER STILL RUQ TENDERNES SON PALPATION) Labs: CBC, BMP 04/28/17 06:20 04/28/17 06:20 INR, PTT INR 1.03 (0.82-1.09) 04/25/17 07:30 Assessment/Plan 72M WITH PRIOR ABDOMINAL SURGERY ADMIT WITH OBSTRUCTIVE SX'S RAISING CONCERN OF SBO/PARTIAL SBO HAD COLONOSOCPY 10/2016 WITH DIVERTICULOSIS AND HEMORRHOIDS PT REFUSED NGT ON ADMIT AND HAD CONTINUED TO PASS FLATUS AND CLINICALLY IMPROVED HOWEVER STILL HAS HAD FOCAL PAIN/ TENDERNESS IN RUQ/RLQ, WBC ELEVATION AND RISE IN LFT'S RAISING CONCERN OF AN EVOLVING PROCESS IN THE RUQ CT SCAN NOTED CHOLECYSTITIS AND PLEURAL EFFUSIONS PT ON ABX------STILL HAVING FEVERS AND RISE ION LFT'S UNCLEAR IF LFT'S DUE TO CBD DISEASE VS AN INFLAMED HOT/ GB ON THE LIVER BED CAN BE SEEN IN ACUTE CHOLECYSTITIS PT JUST RETURNED FROM MRCP TO ASSESS THE CBD PRIOR TO POSSIBLE L.C. AGREE WTIH IVF/NPO/IV ABX F/U LABS PENDING MRCP FINDINGS AND LFTS IN AM, MAY NEED ERCP PRIOR TO L.C IF NO DATA TO SUPPORT CBD DISEASE THEN WOULD PROCEED WITH L.C. D/W DR JOEL SANCHEZ/WES WILL FOLLOW PATIENT ON 04/29 MD GILMA
[2017-04-28] MEDS ORDERED: ACETAMINOPHEN 325 MG TABLET (FP) PO PRN (18:46)
[2017-04-29] MEDS ORDERED: PT OWN MED DRAWER 7, Y5N ONE ×2 (00:03→22:09)
[2017-04-29] MEDS: D5-1/2NS+20 MEQ KCL - 20 MEQ/1,000 ML INFUS.BAG IV SCH (00:09)
[2017-04-29] MEDS: PANTOPRAZOLE SODIUM 80 MG in SODIUM CHLORIDE 100 ML IVPB SCH ×4 (00:10→22:16)
[2017-04-29] MEDS: HYDROmorphone HCL CARPU-JECT 2 MG/1 ML DISP.SYRIN IVPUSH PRN ×2 (00:19→08:58)
[2017-04-29] MEDS: METRONIDAZOLE 500 MG PREMIXED 500 MG/100 ML MG IVPB SCH ×3 (01:32→17:20)
[2017-04-29] MEDS: ALBUTEROL SO4 2.5/IPRATROPIUM 0.5 INH SOL 3 ML VIAL.NEB. NEB SCH ×3 (06:36→17:41)
[2017-04-29 07:36] LABS: BASOPHIL 0.2 % (0-2.0); EOSINOPHIL 1.4 % (0-4.5); MCH 31.6 pg (25.7-33.7); MCHC 33.1 g/dl (32.0-35.9); MEAN CELL VOLUME 95.7 fl (80-96); MEAN PLT VOLUME 7.6 fl (7.5-11.1); NEUTROPHILS 82.8 % (42.8-82.8); PLATELET COUNT 205 K/MM3 (134-434); RDW 14.5 % (11.9-15.9); WHITE BLOOD COUNT 11.4 K/mm3 (4.0-10.0)
[2017-04-29 08:10] LABS: BILIRUBIN,TOTAL 0.9 mg/dL (0.2-1.0); SGPT/ALT 104 U/L (12-78)
[2017-04-29 08:15] LABS: ALBUMIN 2.6 g/dl (3.4-5.0); ALK PHOS 276 U/L (45-117); ANION GAP 9 (8-16); CO2 25 mmol/L (21-32); CREATININE 1.5 mg/dL (0.7-1.3); GLUCOSE,RANDOM 101 mg/dL (74-106); TOT PROT 6.1 g/dl (6.4-8.2)
[2017-04-29 08:25] LABS: SGOT/AST 81 U/L (15-37)
[2017-04-29] MEDS: CEFTRIAXONE 2 GM in DEXTROSE 5%-WATER - 100 ML IVPB SCH (09:31)
--- NOTE | 2017-04-29 09:52 | PN ---
Progress Note, Physician Chief Complaint: NPO for OR today elevated LFT - Current Medication List Current Medications: Active Medications Acetaminophen (Tylenol -) 650 mg PO Q4H PRN PRN Reason: FEVER OR PAIN Last Admin: 04/28/17 18:49 Dose: 650 mg Albuterol/Ipratropium (Duoneb -) 1 amp NEB QIDR [facility] Last Admin: 04/29/17 06:36 Dose: 1 amp Heparin Sodium (Porcine) (Heparin -) 5,000 unit SQ BID [facility] Last Admin: 04/28/17 22:31 Dose: 5,000 unit Hydromorphone HCl (Dilaudid Injection -) 1 mg IVPUSH Q4H PRN PRN Reason: PAIN Last Admin: 04/29/17 08:58 Dose: 1 mg Potassium Chloride/Dextrose/Sod Cl (D5-1/2ns+20 Meq Kcl -) 20 meq in 1,000 mls @ 125 mls/hr IV ASDIR [facility] Last Admin: 04/29/17 00:09 Dose: 125 mls/hr Pantoprazole Sodium 80 mg/ (Sodium Chloride) 100 mls @ 10 mls/hr IVPB Q10H [facility] PRN Reason: 8 MG/HR Last Admin: 04/29/17 07:35 Dose: Not Given Metronidazole (Flagyl 500mg Premixed Ivpb -) 500 mg in 100 mls @ 100 mls/hr IVPB Q8H-IV [facility] Last Admin: 04/29/17 01:32 Dose: 100 mls/hr Ceftriaxone Sodium 2 gm/ (Dextrose) 100 mls @ 200 mls/hr IVPB DAILY [facility] Last Admin: 04/29/17 09:31 Dose: 200 mls/hr Ondansetron HCl (Zofran Injection) 4 mg IVPUSH Q6H PRN PRN Reason: NAUSEA - Objective Vital Signs: Vital Signs Temperature 99.8 F H 04/29/17 08:49 Pulse Rate 101 H 04/29/17 08:49 Respiratory Rate 18 04/29/17 08:49 Blood Pressure 154/92 04/29/17 08:49 O2 Sat by Pulse Oximetry (%) 99 04/27/17 20:30 Constitutional: Yes: Calm Neck: Yes: Trachea Midline Cardiovascular: Yes: Regular Rate and Rhythm, S1, S2 Respiratory: Yes: CTA Bilaterally Gastrointestinal: Yes: Hypoactive Bowel Sounds, Tenderness (RUQ) Edema: No Neurological: Yes: Alert, Oriented Labs: CBC, BMP 04/29/17 06:45 04/29/17 06:45 INR, PTT INR 1.03 (0.82-1.09) 04/25/17 07:30 Problem List - Problems (1) Abdominal pain Assessment/Plan: awaiting MRCP result NPO elevated lft possible surgery today Code(s): R10.9 - UNSPECIFIED ABDOMINAL PAIN Qualifiers: Abdominal location: generalized Qualified Code(s): R10.84 - Generalized abdominal pain (2) Abnormal LFTs Assessment/Plan: MRCP done today awaiting result Code(s): R79.89 - OTHER SPECIFIED ABNORMAL FINDINGS OF BLOOD CHEMISTRY (3) Cholecystitis, acute Assessment/Plan: elevated LFT mrcp done on iv abx ID on board npo ivf Code(s): K81.0 - ACUTE CHOLECYSTITIS
[2017-04-29] MEDS: HEPARIN NA (PORCINE) 5,000 UNITS/ML 1ML VIAL SQ SCH (09:54)
--- NOTE | 2017-04-29 10:06 | PN ---
Progress Note (short form) - Note Progress Note: GI NOte: Discussed MRCP with Dr. Mandujano. He tells me that it is of good quality and clears the CBD. The GB appears to be very inflamed and he believes it may becoming gangrenous. This would account for the elevated LFTs. Needs cholescystectomy. Will stop heparin.
[2017-04-29] MEDS ORDERED: MIDAZOLAM HCL 2 MG/2 ML SINGLE DOSE VIAL ONE (11:17)
[2017-04-29] MEDS ORDERED: PROPOFOL 20 ML ONE (11:42)
[2017-04-29] MEDS ORDERED: fentaNYL CITRATE 250 MCG/5 ML VIAL ONE ×2 (11:42→12:29)
[2017-04-29] MEDS ORDERED: CEFOXITIN SODIUM 1 GM IVPB ONE (11:43)
[2017-04-29] MEDS ORDERED: cefOXitin SODIUM 1 GM VIAL (RESTRICTED TO ID) IVPB ONE (11:44)
[2017-04-29] MEDS ORDERED: LABETALOL HCL 5 MG/1 ML (100MG/20 ML VIAL) ONE (12:41)
[2017-04-29] MEDS ORDERED: KETOROLAC TROMETHAMINE 30 MG/1 ML VIAL ONE (13:50)
[2017-04-29] MEDS ORDERED: DEXAMETHASONE SOD PHOSPHATE 4 MG/1 ML VIAL ONE (13:50)
[2017-04-29] MEDS ORDERED: NEOSTIGMINE METHYLSULFATE 0.5 MG/ML - 10 ML MDV ONE (13:51)
[2017-04-29] MEDS ORDERED: GLYCOPYRROLATE 0.2 MG/1 ML VIAL ONE ×2 (13:51)
[2017-04-29] MEDS ORDERED: BUPIVACAINE HCL/PF 0.5% (5MG/ML) 10 ML VIAL IJ ONE ×2 (13:55)
[2017-04-29] MEDS ORDERED: PROMETHAZINE HCL 25 MG/1 ML VIAL IVPUSH PRN (14:14)
[2017-04-29] MEDS ORDERED: ONDANSETRON 4 MG/2 ML VIAL IVPUSH PRN ×2 (14:14→14:36)
[2017-04-29] MEDS ORDERED: oxyCODONE HCL 5 MG TABLET PO PRN (14:14)
--- NOTE | 2017-04-29 14:14 | EKG ---
Test Reason : Blood Pressure : / mmHG Vent. Rate : 098 BPM Atrial Rate : 098 BPM P-R Int : 156 ms QRS Dur : 088 ms QT Int : 352 ms P-R-T Axes : 044 -22 037 degrees QTc Int : 449 ms NORMAL SINUS RHYTHM NONSPECIFIC ST AND T WAVE ABNORMALITY ABNORMAL ECG WHEN COMPARED WITH ECG OF 24-APR-2017 09:48, VENT. RATE HAS INCREASED BY 33 BPM Confirmed by VIOLA BLACK, KWAKU ([id number]) on 04/29/2017 2:14:32 PM Referred By: Crystal MALAGON Confirmed By:KWAKU ROD MD
[2017-04-29] MEDS ORDERED: ONDANSETRON 4 MG/2 ML VIAL ONE (14:15)
[2017-04-29] MEDS ORDERED: LACTATED RINGERS SOLUTION 1,000 ML IV SCH (14:15)
[2017-04-29] MEDS ORDERED: LABETALOL HCL 5 MG/1 ML (100MG/20 ML VIAL) IVPUSH ONE ×2 (14:17→14:36)
[2017-04-29] MEDS ORDERED: ONDANSETRON 4 MG/2 ML VIAL IVPUSH ONE (14:20)
--- NOTE | 2017-04-29 14:26 | OP ---
Operative Note - Note: Operative Date: 04/29/17 Pre-Operative Diagnosis: Acute cholecystitis Operation: Laparoscopic cholecystectomy Findings: gangrenous gallbladder with large stone Implants: none Post-Operative Diagnosis: Other (Acute gangrenous gallbladder) Surgeon: David Le Corncob [employer] Supervisor: Sanju Hope Anesthesiologist/VP PUBLISHER DEVELOPMENT: Serjio Raza Anesthesia: General, Local (maricaine 0.5% 10ml) Specimens Removed: gallbladder and large stone Estimated Blood Loss (mls): 25 Drains & Tubes with Location: none Fluid Volume Replaced (mls): 1,500 Operative Report Dictated: Yes
[2017-04-29] MEDS ORDERED: morphine CARPU-JECT 2 MG/1 ML DISP.SYRIN IVPUSH PRN (14:28)
[2017-04-29] MEDS ORDERED: ACETAMINOPHEN 325 MG TABLET (FP) PO PRN (14:36)
--- NOTE | 2017-04-29 16:25 | PN ---
Progress Note, Physician History of Present Illness: Seen in PACU S /P laparoscopic cholecystectomy Operative findings discussed with surgeon Low grade temp WBC 11 - Current Medication List Current Medications: Active Medications Acetaminophen (Tylenol -) 650 mg PO Q4H PRN PRN Reason: FEVER OR PAIN Albuterol/Ipratropium (Duoneb -) 1 amp NEB QIDR [facility] Ceftriaxone Sodium 2 gm/ (Dextrose) 100 mls @ 200 mls/hr IVPB DAILY [facility] Potassium Chloride/Dextrose/Sod Cl (D5-1/2ns+20 Meq Kcl -) 20 meq in 1,000 mls @ 125 mls/hr IV ASDIR [facility] Metronidazole (Flagyl 500mg Premixed Ivpb -) 500 mg in 100 mls @ 100 mls/hr IVPB Q8H-IV [facility] Pantoprazole Sodium 80 mg/ (Sodium Chloride) 100 mls @ 10 mls/hr IVPB Q10H [facility] PRN Reason: 8 MG/HR Morphine Sulfate (Morphine Sulfate) 4 mg IVPUSH Q6H PRN PRN Reason: PAIN LEVEL 6-10 Ondansetron HCl (Zofran Injection) 4 mg IVPUSH Q6H PRN PRN Reason: NAUSEA - Objective Vital Signs: Vital Signs Temperature 97.4 F L 04/29/17 15:55 Pulse Rate 80 04/29/17 15:55 Respiratory Rate 16 04/29/17 15:55 Blood Pressure 140/80 04/29/17 15:55 O2 Sat by Pulse Oximetry (%) 96 04/29/17 15:40 Constitutional: Yes: No Distress Eyes: Yes: Conjunctiva Clear Cardiovascular: Yes: Regular Rate and Rhythm, S1, S2 Respiratory: Yes: CTA Bilaterally Gastrointestinal: Yes: Soft, Other (+ distention, generalized tenderness) Edema: No Labs: CBC, BMP 04/29/17 06:45 04/29/17 06:45 INR, PTT INR 1.03 (0.82-1.09) 04/25/17 07:30 Assessment/Plan S/P laparoscopic cholecystectomy Low grade temp Continue ceftriaxone/ flagyl
[2017-04-29] MEDS: morphine SULFATE 4 MG/ML VIAL IVPUSH PRN ×2 (18:56→23:50)
[2017-04-30] MEDS: METRONIDAZOLE 500 MG PREMIXED 500 MG/100 ML MG IVPB SCH ×3 (02:34→17:04)
[2017-04-30] MEDS: D5-1/2NS+20 MEQ KCL - 20 MEQ/1,000 ML INFUS.BAG IV SCH ×2 (04:23→14:59)
[2017-04-30] MEDS: ALBUTEROL SO4 2.5/IPRATROPIUM 0.5 INH SOL 3 ML VIAL.NEB. NEB SCH ×4 (06:40→18:04)
--- NOTE | 2017-04-30 07:28 | PN ---
Progress Note, Physician Chief Complaint: abdominal pain and vomiting History of Present Illness: 72yo M with HTN, HLD, h/o renal and prostate CA, kidney stones, gallstones, daily smoker and drinker, he abdominal pain is improved. POD #1 s/p laparoscopic cholecystectomy, pain is controlled, tolerating clears, voiding, no flatus yet - Current Medication List Current Medications: Active Medications Acetaminophen (Tylenol -) 650 mg PO Q4H PRN PRN Reason: FEVER OR PAIN Albuterol/Ipratropium (Duoneb -) 1 amp NEB QIDR [facility] Last Admin: 04/30/17 06:40 Dose: 1 amp Ceftriaxone Sodium 2 gm/ (Dextrose) 100 mls @ 200 mls/hr IVPB DAILY [facility] Potassium Chloride/Dextrose/Sod Cl (D5-1/2ns+20 Meq Kcl -) 20 meq in 1,000 mls @ 125 mls/hr IV ASDIR [facility] Last Admin: 04/30/17 04:23 Dose: 125 mls/hr Metronidazole (Flagyl 500mg Premixed Ivpb -) 500 mg in 100 mls @ 100 mls/hr IVPB Q8H-IV [facility] Last Admin: 04/30/17 02:34 Dose: 100 mls/hr Pantoprazole Sodium 80 mg/ (Sodium Chloride) 100 mls @ 10 mls/hr IVPB Q10H [facility] PRN Reason: 8 MG/HR Last Admin: 04/29/17 22:16 Dose: 10 mls/hr Morphine Sulfate (Morphine Sulfate) 4 mg IVPUSH Q6H PRN PRN Reason: PAIN LEVEL 6-10 Last Admin: 04/29/17 23:50 Dose: 4 mg Ondansetron HCl (Zofran Injection) 4 mg IVPUSH Q6H PRN PRN Reason: NAUSEA - Objective Vital Signs: Vital Signs Temperature 97.9 F 04/30/17 06:02 Pulse Rate 84 04/30/17 06:02 Respiratory Rate 20 04/30/17 06:02 Blood Pressure 139/82 04/30/17 06:02 O2 Sat by Pulse Oximetry (%) 98 04/29/17 21:00 Vital Signs Period Temp Pulse Resp BP Sys/Shine Pulse Ox Last 24 Hr 97.4 F-99.8 F 80-103 16-20 108-154/63-92 96-98 Constitutional: Yes: Well Nourished, No Distress, Calm Eyes: Yes: Conjunctiva Clear, EOM Intact HENT: Yes: Atraumatic, Normocephalic Neck: Yes: Supple, Trachea Midline Cardiovascular: Yes: Regular Rate and Rhythm, S1, S2 Respiratory: Yes: Regular, CTA Bilaterally Gastrointestinal: Yes: Normal Bowel Sounds, Soft, Tenderness (aaron-incisonal) Genitourinary: No: CVA Tenderness - Left, CVA Tenderness - Right Musculoskeletal: Yes: Muscle Weakness (feels week in the legs) Wound/Incision: Yes: Clean/Dry. No: Dressing Removed Neurological: Yes: Alert, Oriented Psychiatric: Yes: Alert, Oriented Labs: CBC, BMP 04/30/17 06:20 04/30/17 06:20 Problem List - Problems (1) Cholelithiasis and cholecystitis without obstruction Assessment/Plan: POD#1 s/p laparoscopic cholecystectomy, found a gangrenous gallbladder intraop. stable post op, on clears, voiding, minimal pain, WBC now normal . Advance diet as tolerated OOB and ambulate PT evaluation - he reports some limitation with ambulation encourage IS Continue broad spectrum IV antibiotics cover enteric bacteria Trend labs will follow Code(s): K80.10 - CALCULUS OF GALLBLADDER W CHRONIC CHOLECYST W/O OBSTRUCTION Qualifiers: Cholelithiasis location: gallbladder and bile duct Cholecystitis acuity: acute and chronic Qualified Code(s): K80.66 - Calculus of gallbladder and bile duct with acute and chronic cholecystitis without obstruction (2) Abdominal pain Code(s): R10.9 - UNSPECIFIED ABDOMINAL PAIN Qualifiers: Abdominal location: generalized Qualified Code(s): R10.84 - Generalized abdominal pain (3) Vomiting with nausea, not intractable Code(s): R11.2 - NAUSEA WITH VOMITING, UNSPECIFIED Qualifiers: Vomiting type: unspecified Qualified Code(s): R11.2 - Nausea with vomiting , unspecified (4) Nausea Code(s): R11.0 - NAUSEA
[2017-04-30 08:03] LABS: ALBUMIN 2.5 g/dl (3.4-5.0); ANION GAP 6 (8-16); CALCIUM 8.3 mg/dL (8.5-10.1); CO2 26 mmol/L (21-32); GLUCOSE,RANDOM 117 mg/dL (74-106)
[2017-04-30 08:06] LABS: ALK PHOS 246 U/L (45-117); BILIRUBIN,TOTAL 0.4 mg/dL (0.2-1.0); CREATININE 1.8 mg/dL (0.7-1.3); SGOT/AST 49 U/L (15-37); SGPT/ALT 77 U/L (12-78); TOT PROT 6.1 g/dl (6.4-8.2)
[2017-04-30 08:09] LABS: BASOPHIL 0.3 % (0-2.0); EOSINOPHIL 0.4 % (0-4.5); MCH 32.4 pg (25.7-33.7); MCHC 33.8 g/dl (32.0-35.9); MEAN CELL VOLUME 95.8 fl (80-96); MEAN PLT VOLUME 7.9 fl (7.5-11.1); NEUTROPHILS 81.6 % (42.8-82.8); PLATELET COUNT 229 K/MM3 (134-434); RDW 14.4 % (11.9-15.9); WHITE BLOOD COUNT 8.8 K/mm3 (4.0-10.0)
--- NOTE | 2017-04-30 09:28 | PN ---
Progress Note, Physician - Current Medication List Current Medications: Active Medications Acetaminophen (Tylenol -) 650 mg PO Q4H PRN PRN Reason: FEVER OR PAIN Albuterol/Ipratropium (Duoneb -) 1 amp NEB QIDR [facility] Last Admin: 04/30/17 06:40 Dose: 1 amp Ceftriaxone Sodium 2 gm/ (Dextrose) 100 mls @ 200 mls/hr IVPB DAILY [facility] Potassium Chloride/Dextrose/Sod Cl (D5-1/2ns+20 Meq Kcl -) 20 meq in 1,000 mls @ 125 mls/hr IV ASDIR [facility] Last Admin: 04/30/17 04:23 Dose: 125 mls/hr Metronidazole (Flagyl 500mg Premixed Ivpb -) 500 mg in 100 mls @ 100 mls/hr IVPB Q8H-IV [facility] Last Admin: 04/30/17 02:34 Dose: 100 mls/hr Pantoprazole Sodium 80 mg/ (Sodium Chloride) 100 mls @ 10 mls/hr IVPB Q10H [facility] PRN Reason: 8 MG/HR Last Admin: 04/29/17 22:16 Dose: 10 mls/hr Morphine Sulfate (Morphine Sulfate) 4 mg IVPUSH Q6H PRN PRN Reason: PAIN LEVEL 6-10 Last Admin: 04/29/17 23:50 Dose: 4 mg Ondansetron HCl (Zofran Injection) 4 mg IVPUSH Q6H PRN PRN Reason: NAUSEA - Objective Vital Signs: Vital Signs Temperature 97.9 F 04/30/17 06:02 Pulse Rate 84 04/30/17 06:02 Respiratory Rate 20 04/30/17 06:02 Blood Pressure 139/82 04/30/17 06:02 O2 Sat by Pulse Oximetry (%) 98 04/29/17 21:00 Cardiovascular: Yes: Regular Rate and Rhythm Respiratory: Yes: Regular, CTA Bilaterally Gastrointestinal: Yes: Soft, Tenderness (MILD) Labs: CBC, BMP 04/30/17 06:20 04/30/17 06:20 INR, PTT INR 1.03 (0.82-1.09) 04/25/17 07:30 Problem List - Problems (1) Cholecystitis, acute Assessment/Plan: D/W DR IBRAHIM--IV ABX S/P CHOLECYSTECTOMY Code(s): K81.0 - ACUTE CHOLECYSTITIS (2) Gastritis Code(s): K29.70 - GASTRITIS, UNSPECIFIED, WITHOUT BLEEDING (3) CKD (chronic kidney disease) Assessment/Plan: MONITOR LABS CR STABLE Code(s): N18.9 - CHRONIC KIDNEY DISEASE, UNSPECIFIED (4) Abdominal pain Assessment/Plan: F/U CT--ACUTE CHOLECYSTITIS S/P CHOLECYSTECTOMY IVF GI AND ID CONSULT--F/U STOOL CULTURES IV ABX Code(s): R10.9 - UNSPECIFIED ABDOMINAL PAIN Qualifiers: Abdominal location: generalized Qualified Code(s): R10.84 - Generalized abdominal pain (5) Hyperlipidemia Code(s): E78.5 - HYPERLIPIDEMIA, UNSPECIFIED Qualifiers: Hyperlipidemia type: unspecified Qualified Code(s): E78.5 - Hyperlipidemia , unspecified (6) Abnormal LFTs Assessment/Plan: RPEEAT CT --ACUTE CHOECYSTITIS--ABX --HEPATITIS PANEL GI FOLLOW UP Code(s): R79.89 - OTHER SPECIFIED ABNORMAL FINDINGS OF BLOOD CHEMISTRY (7) Pneumonia Assessment/Plan: IV ABX F/U CXR Code(s): J18.9 - PNEUMONIA, UNSPECIFIED ORGANISM (8) Discogenic low back pain Assessment/Plan: PHYSICAL THERAPY Code(s): M54.5 - LOW BACK PAIN
[2017-04-30] MEDS ORDERED: PT OWN MED DRAWER 7, Y5N ONE ×2 (09:45→09:56)
[2017-04-30] MEDS: PANTOPRAZOLE SODIUM 80 MG in SODIUM CHLORIDE 100 ML IVPB SCH ×2 (09:54→20:56)
[2017-04-30] MEDS: CEFTRIAXONE 2 GM in DEXTROSE 5%-WATER - 100 ML IVPB SCH (09:57)
--- NOTE | 2017-04-30 10:23 | PN ---
Progress Note (short form) - Note Progress Note: Anesthesia Post op Pt seen and examined S:alert and awake O: Vital Signs Temperature 97.9 F 04/30/17 06:02 Pulse Rate 84 04/30/17 06:02 Respiratory Rate 20 04/30/17 06:02 Blood Pressure 139/82 04/30/17 06:02 O2 Sat by Pulse Oximetry (%) 98 04/29/17 21:00 CBC, BMP 04/30/17 06:20 04/30/17 06:20 Current Active Problems Abdominal pain (Acute) Abnormal LFTs (Acute) Alcohol consumption of one to four drinks per day (Acute) CKD (chronic kidney disease) (Acute) Cholecystitis, acute (Acute) Cholelithiasis and cholecystitis without obstruction (Acute) Discogenic low back pain (Acute) Gastritis (Acute) H/O prostate cancer (Acute) H/O renal cell cancer (Acute) Hyperlipidemia (Acute) Pneumonia (Acute) Vomiting with nausea, not intractable (Acute) A/P:s/p Lap cholecystectomy Doing well post op Continue current care Serjio Raza MD
--- NOTE | 2017-04-30 12:12 | OP ---
DATE OF OPERATION: 04/29/2017 ATTENDING SURGEON: David Le MD FLOOR FINISHER HELPER: Sanju Hope MD ANESTHESIOLOGIST: Serjio Raza MD PREOPERATIVE DIAGNOSIS: Acute cholecystitis. POSTOPERATIVE DIAGNOSIS: Acute gangrenous cholecystitis. PROCEDURE: Laparoscopic cholecystectomy. ESTIMATED BLOOD LOSS: 25 mL. INTRAVENOUS FLUID: 1500 mL. INTRAOPERATIVE FINDINGS: Diffusely gangrenous gallbladder, large gallstone. ANESTHESIA: General with Marcaine 0.5%, a total of 10 mL estimated noted. INDICATIONS: Patient is a 72-year-old male presenting approximately 4 days prior to surgery with vague abdominal complaints, some epigastric and right upper quadrant tenderness. He was counseled regarding a large gallstone that was present, he was aware, and after confirming that acute cholecystitis might be the source of his septic response, he was counseled regarding the need for cholecystectomy. He signed informed consent after being explained the risks, benefits, and alternatives, surgical plan. He signed informed consent and was taken to procedure. DESCRIPTION OF PROCEDURE: The patient was brought to the operating room, placed in supine position on the operating table with the right arm tucked and the left arm extended 90 degrees perpendicular to the bodys axis. The patient was induced with general anesthesia, endotracheally intubated without incident. Patient received intravenous Mefoxin prior to surgery. He had SCDs placed as well. The patients abdomen was then shaved, prepped and draped in the standard surgical fashion, blocking the right abdomen for laparoscopic approach. After a formal time-out was completed with all members of the operative team in agreement, we proceeded then with supraumbilical approach for Caprice entry, Xiphoid and markings for a subcostal incision on the right. We approached first the umbilicus at the skin opening the 15-blade scalpel deepening and widening through subcutaneous tissues to the median raphe of the rectus muscles in the midline. They were elevated with Jaci clamps, and then the abdominal entry was made. The entry into the abdomen was then cleared with finger dissection, and it was clear that there were no anterior adhesions. A 12-mm Caprice port was then introduced into the abdomen, and pneumoperitoneum was established at 15 mmHg. The patient remained stable throughout the introduction of the pneumoperitoneum. We then introduced a 5-mm 0-degree scope camera to inspect the right upper abdomen. It was clear at this point that the patient had some fibrotic changes in the liver, and a large amount of caked omentum over the gallbladder stone which were immobilized away. A 2nd entry port was made at the xiphisternum, and a 5-mm port was introduced in the abdomen under direct visualization. With the ability to mobilize the omentum in greater detail, it was clear that the dome of the gallbladder had patchy areas of necrosis in the wall, discolorations that were green, black, and florian. Additional trocar sites were made into the right abdomen along with subcostal incision to allow for retraction of the gallbladder. Decision was made at this point to decompress the gallbladder with a needle. After careful introduction of the decompression needle, 60 mL of green thick bile was aspirated from the gallbladder itself. Grasper was then used to control the enterotomy into the gallbladders dome to prevent further contamination. We then proceeded with dissection of the infundibulum. The wall of the gallbladder was edematous and friable. When it controlled and retraction applied, we were able to identify the cystic duct as its confluent entry into the gallbladder. It was cleared of tissue, and a window was created posteriorly to it allowing the circumferential dissection of the cystic duct. The decision was made to use 5-mm plastic Weck clips in order to control any contamination given the condition of the gallbladder itself. Two proximal clips and one distal on the specimen were applied, and then, the cystic duct itself was transected. The cystic artery was also identified in the field prior to its transection, but was not able to be dissected until the cystic duct was dissected. We then proceeded with dissection of the cystic artery. Cystic artery took its normal path just adjacent to closed note into the gallbladder. A critical view was identified at this point. At which point, the cystic artery was in a similar fashion, Weck clips were applied, and it was two proximal and one distal clip, and then transected. With this completed, we began our dissection of the gallbladder off of the liver plate. Bovie cautery was used to open windows along the median and lateral britt of the peritoneum. They were opened, and then a spatula was used to elevate the tissue. There appeared to be a lot of necrosis as well as edema in the wall of the gallbladder. Fortunately, no additional entries into the gallbladder itself were made. With the gallbladder itself removed from the liver bed, small punctate bleeders on the livers surface were controlled with cautery. We then proceeded with the retrieval of the gallbladder itself, which appeared to have a large stone with an EndoCatch bag. The camera was resided to the xiphisternum, and the EndoCatch bag was introduced to the abdomen from the umbilical port. The gallbladder was then introduced into the EndoCatch bag and retrieved from the umbilicus after stretching the fascia to some degree. After the gallbladder was removed, we proceeded then with irrigation of the site. The patient was leveled from the reverse Trendelenburg position to allow for pooling of the irrigation. Approximately 1.5 bleeders of sterile irrigation was used to irrigate both a small amount of acidic free fluid and a small amount of blood effluent from the dissection from the abdomen. Clots where they could were retrieved also from the abdomen. Care was then taken to push the omentum into the plane of dissection after inspecting the Weck clips which appeared to be in position. Pulsatile motion of the cystic artery was also noted, confirming its anatomical identification. We then proceeded with removal of the trocar sites under direct visualization, first laterally and then at the xiphisternum. Finally, the Caprice port was removed from the abdomen with the pneumoperitoneum relieved. The skin was cleaned. The umbilical port was tied with care taken to ensure that no abdominal viscera was interposed. A small defect superiorly was identified, at which point, an additional fijbel-ne-cgyhi 0 Vicryl was applied across this defect to ablate it. The remaining skin ports as well as the umbilical port were then closed in running subcuticular fashion using 4-0 Vicryl. The skin was cleaned, sterile dressings were placed consisting of Benzoin and Steri-Strips and gauze and Tegaderms. The patient was awoken from general anesthesia having tolerated the procedure well. He was katelyn throughout. Counts were correct postoperatively. Patient was taken to recovery in stable condition. MD SASKIA Liriano/[id number]
--- NOTE | 2017-04-30 16:12 | PN ---
Progress Note, Physician History of Present Illness: S /P laparoscopic cholecystectomy POD #1 No c/o abdominal pain Tolerating liquids afebrile WBC WNL - Current Medication List Current Medications: Active Medications Acetaminophen (Tylenol -) 650 mg PO Q4H PRN PRN Reason: FEVER OR PAIN Albuterol/Ipratropium (Duoneb -) 1 amp NEB QIDR [facility] Last Admin: 04/30/17 06:40 Dose: 1 amp Ceftriaxone Sodium 2 gm/ (Dextrose) 100 mls @ 200 mls/hr IVPB DAILY [facility] Last Admin: 04/30/17 09:57 Dose: 200 mls/hr Potassium Chloride/Dextrose/Sod Cl (D5-1/2ns+20 Meq Kcl -) 20 meq in 1,000 mls @ 125 mls/hr IV ASDIR [facility] Last Admin: 04/30/17 14:59 Dose: 125 mls/hr Metronidazole (Flagyl 500mg Premixed Ivpb -) 500 mg in 100 mls @ 100 mls/hr IVPB Q8H-IV [facility] Last Admin: 04/30/17 09:57 Dose: 100 mls/hr Pantoprazole Sodium 80 mg/ (Sodium Chloride) 100 mls @ 10 mls/hr IVPB Q10H [facility] PRN Reason: 8 MG/HR Last Admin: 04/30/17 09:54 Dose: 10 mls/hr Morphine Sulfate (Morphine Sulfate) 4 mg IVPUSH Q6H PRN PRN Reason: PAIN LEVEL 6-10 Last Admin: 04/29/17 23:50 Dose: 4 mg Ondansetron HCl (Zofran Injection) 4 mg IVPUSH Q6H PRN PRN Reason: NAUSEA - Objective Vital Signs: Vital Signs Temperature 98.2 F 04/30/17 14:00 Pulse Rate 88 04/30/17 14:00 Respiratory Rate 21 04/30/17 14:00 Blood Pressure 137/78 04/30/17 14:00 O2 Sat by Pulse Oximetry (%) 98 04/29/17 21:00 Constitutional: Yes: No Distress Eyes: Yes: Conjunctiva Clear Cardiovascular: Yes: Regular Rate and Rhythm, S1, S2 Respiratory: Yes: CTA Bilaterally Gastrointestinal: Yes: Normal Bowel Sounds, Soft, Tenderness, Other (Slightly distended Mild RUQ tenderness) Edema: No Labs: CBC, BMP 04/30/17 06:20 04/30/17 06:20 INR, PTT INR 1.03 (0.82-1.09) 04/25/17 07:30 Assessment/Plan S/P laparoscopic cholecystectomy POD #1 Fever/ leukocytosis- resolved PCN allergy Continue ceftriaxone/ flagyl Substitute po levquin / flagyl next 24h
[2017-04-30] MEDS: morphine SULFATE 4 MG/ML VIAL IVPUSH PRN (17:29)
--- NOTE | 2017-04-30 19:01 | PN ---
GI Progress Note Subjective: GI Note: Surgical efforts appreciated. The GB clearly needed to be removed. LFTs are slightly improved. Has postoperative pain but no chills or fevers - Objective Vital Signs: Vital Signs Temperature 98.2 F 04/30/17 14:00 Pulse Rate 88 04/30/17 14:00 Respiratory Rate 21 04/30/17 14:00 Blood Pressure 137/78 04/30/17 14:00 O2 Sat by Pulse Oximetry (%) 98 04/29/17 21:00 Constitutional: Calm Gastrointestinal Inspection: Yes: Scars (bandages in place, not removed) ...Auscultate: Yes: Hypoactive Bowel Sounds ...Palpate: Yes: Soft Labs: CBC, BMP 04/30/17 06:20 04/30/17 06:20 INR, PTT INR 1.03 (0.82-1.09) 04/25/17 07:30 Assessment/Plan Day 1 s/p cholecystectomy for gangrenous cholecystitis. Will repeat AM LFTs. Postop management as per surgical team.
[2017-05-01] MEDS: morphine SULFATE 4 MG/ML VIAL IVPUSH PRN (00:08)
[2017-05-01] MEDS: METRONIDAZOLE 500 MG PREMIXED 500 MG/100 ML MG IVPB SCH ×3 (02:05→17:57)
[2017-05-01] MEDS: D5-1/2NS+20 MEQ KCL - 20 MEQ/1,000 ML INFUS.BAG IV SCH ×2 (05:00→09:48)
[2017-05-01] MEDS: PANTOPRAZOLE SODIUM 80 MG in SODIUM CHLORIDE 100 ML IVPB SCH ×2 (05:51→16:32)
[2017-05-01] MEDS: ALBUTEROL SO4 2.5/IPRATROPIUM 0.5 INH SOL 3 ML VIAL.NEB. NEB SCH ×4 (05:54→18:15)
--- NOTE | 2017-05-01 07:59 | PN ---
Progress Note, Physician Chief Complaint: abdominal pain and vomiting History of Present Illness: 72yo M with HTN, HLD, h/o renal and prostate CA, kidney stones, gallstones, daily smoker and drinker, he abdominal pain is improved. POD #2 s/p laparoscopic cholecystectomy, pain is controlled, tolerating full liquids, voiding, having BM and flatus yesterday - Current Medication List Current Medications: Active Medications Acetaminophen (Tylenol -) 650 mg PO Q4H PRN PRN Reason: FEVER OR PAIN Albuterol/Ipratropium (Duoneb -) 1 amp NEB QIDR [facility] Last Admin: 05/01/17 05:54 Dose: 1 amp Ceftriaxone Sodium 2 gm/ (Dextrose) 100 mls @ 200 mls/hr IVPB DAILY [facility] Last Admin: 04/30/17 09:57 Dose: 200 mls/hr Potassium Chloride/Dextrose/Sod Cl (D5-1/2ns+20 Meq Kcl -) 20 meq in 1,000 mls @ 125 mls/hr IV ASDIR [facility] Last Admin: 05/01/17 05:00 Dose: 125 mls/hr Metronidazole (Flagyl 500mg Premixed Ivpb -) 500 mg in 100 mls @ 100 mls/hr IVPB Q8H-IV [facility] Last Admin: 05/01/17 02:05 Dose: 100 mls/hr Pantoprazole Sodium 80 mg/ (Sodium Chloride) 100 mls @ 10 mls/hr IVPB Q10H [facility] PRN Reason: 8 MG/HR Last Admin: 05/01/17 05:51 Dose: 10 mls/hr Morphine Sulfate (Morphine Sulfate) 4 mg IVPUSH Q6H PRN PRN Reason: PAIN LEVEL 6-10 Last Admin: 05/01/17 00:08 Dose: 4 mg Ondansetron HCl (Zofran Injection) 4 mg IVPUSH Q6H PRN PRN Reason: NAUSEA - Objective Vital Signs: Vital Signs Temperature 98.0 F 05/01/17 06:20 Pulse Rate 100 H 05/01/17 06:20 Respiratory Rate 20 05/01/17 06:20 Blood Pressure 145/83 05/01/17 06:20 O2 Sat by Pulse Oximetry (%) 96 04/30/17 21:00 Vital Signs Period Temp Pulse Resp BP Sys/Shine Pulse Ox Last 24 Hr 98.0 F-98.5 F 81-100 18-21 137-152/78-92 96 Constitutional: Yes: Well Nourished, No Distress, Calm Eyes: Yes: Conjunctiva Clear, EOM Intact HENT: Yes: Atraumatic, Normocephalic Neck: Yes: Supple, Trachea Midline Cardiovascular: Yes: Regular Rate and Rhythm, S1, S2 Respiratory: Yes: Regular, CTA Bilaterally Gastrointestinal: Yes: Normal Bowel Sounds, Soft, Other (4 incisions are clean and dry) Genitourinary: No: CVA Tenderness - Left, CVA Tenderness - Right Extremities: No: Cool, Cyanosis Edema: No Peripheral Pulses WNL: Yes Wound/Incision: Yes: Clean/Dry Neurological: Yes: Alert, Oriented Psychiatric: Yes: Alert, Oriented Labs: CBC, BMP 04/30/17 06:20 04/30/17 06:20 INR, PTT INR 1.03 (0.82-1.09) 04/25/17 07:30 - ....Imaging Chest X-ray: Report Reviewed, Image Reviewed Problem List - Problems (1) Acute gangrenous cholecystitis Assessment/Plan: POD#2 s/p laparoscopic cholecystectomy, found a gangrenous gallbladder intraop. stable post op, on clears, voiding, minimal pain, WBC now normal, Dressings removed, steristrips remain. Advance diet as tolerated to regular OOB and ambulate appreciate PT evaluation encourage IS Continue broad spectrum IV antibiotics, may be discharged home to complete an oral course of antibiotics Can followup with surgery in 2 weeks Code(s): K81.0 - ACUTE CHOLECYSTITIS (2) Cholelithiasis and cholecystitis without obstruction Assessment/Plan: Code(s): K80.10 - CALCULUS OF GALLBLADDER W CHRONIC CHOLECYST W/O OBSTRUCTION Qualifiers: Cholelithiasis location: gallbladder and bile duct Cholecystitis acuity: acute and chronic Qualified Code(s): K80.66 - Calculus of gallbladder and bile duct with acute and chronic cholecystitis without obstruction (3) Abdominal pain Code(s): R10.9 - UNSPECIFIED ABDOMINAL PAIN Qualifiers: Abdominal location: generalized Qualified Code(s): R10.84 - Generalized abdominal pain (4) Vomiting with nausea, not intractable Code(s): R11.2 - NAUSEA WITH VOMITING, UNSPECIFIED Qualifiers: Vomiting type: unspecified Qualified Code(s): R11.2 - Nausea with vomiting , unspecified (5) Nausea Code(s): R11.0 - NAUSEA
[2017-05-01 08:24] LABS: BASOPHIL 0.4 % (0-2.0); EOSINOPHIL 2.5 % (0-4.5); MCH 32.2 pg (25.7-33.7); MCHC 33.4 g/dl (32.0-35.9); MEAN CELL VOLUME 96.4 fl (80-96); MEAN PLT VOLUME 7.3 fl (7.5-11.1); NEUTROPHILS 74.5 % (42.8-82.8); PLATELET COUNT 273 K/MM3 (134-434); RDW 14.4 % (11.9-15.9); WHITE BLOOD COUNT 6.3 K/mm3 (4.0-10.0)
[2017-05-01 08:48] LABS: ALBUMIN 2.8 g/dl (3.4-5.0); ANION GAP 8 (8-16); CALCIUM 8.9 mg/dL (8.5-10.1); CO2 26 mmol/L (21-32); GLUCOSE,RANDOM 128 mg/dL (74-106)
[2017-05-01 08:53] LABS: ALK PHOS 225 U/L (45-117); BILIRUBIN,TOTAL 0.4 mg/dL (0.2-1.0); C-REACTIVE PROTEIN 7.7 MG/DL (0.00-0.3); CREATININE 1.7 mg/dL (0.7-1.3); SGOT/AST 34 U/L (15-37); SGPT/ALT 59 U/L (12-78); TOT PROT 6.3 g/dl (6.4-8.2)
[2017-05-01] MEDS ORDERED: PT OWN MED DRAWER 7, Y5N ONE (09:44)
[2017-05-01] MEDS: CEFTRIAXONE 2 GM in DEXTROSE 5%-WATER - 100 ML IVPB SCH (09:48)
--- NOTE | 2017-05-01 17:26 | DS ---
Physical Examination Vital Signs: Vital Signs Temperature 98.1 F 05/01/17 14:00 Pulse Rate 94 H 05/01/17 14:00 Respiratory Rate 20 05/01/17 14:00 Blood Pressure 156/80 05/01/17 14:00 O2 Sat by Pulse Oximetry (%) 96 05/01/17 11:20 Constitutional: Yes: Well Nourished, No Distress, Calm Cardiovascular: Yes: Regular Rate and Rhythm Respiratory: Yes: Regular Gastrointestinal: Yes: Normal Bowel Sounds Musculoskeletal: Yes: Muscle Weakness Extremities: Yes: WNL Edema: No Peripheral Pulses WNL: Yes Neurological: Yes: Alert, Oriented Psychiatric: Yes: Alert, Oriented Labs: CBC, BMP 05/01/17 07:30 05/01/17 07:30 Discharge Summary Reason For Visit: ABD PAIN Current Active Problems Abdominal pain (Acute) Abnormal LFTs (Acute) Acute gangrenous cholecystitis (Acute) Alcohol consumption of one to four drinks per day (Acute) CKD (chronic kidney disease) (Acute) Cholecystitis, acute (Acute) Cholelithiasis and cholecystitis without obstruction (Acute) Discogenic low back pain (Acute) Gastritis (Acute) H/O prostate cancer (Acute) H/O renal cell cancer (Acute) Hyperlipidemia (Acute) Pneumonia (Acute) Vomiting with nausea, not intractable (Acute) Hospital Course: 72yo M with HTN, HLD, h/o renal and prostate CA, kidney stones, gallstones, daily smoker and drinker, began having bilious vomiting possibly since saturday after ice cream, which persisted every 15-30 minutes through the morning. and may have had 25 episodes since then. He reports persistent abdominal pain and nausea, no more vomiting and no NGT. During his stay he was diagnosed with acute cholecystitis and was evaluated by General surgery. Cholecystectomy was performed. Patient is tolerating PO intake , was treated with IV abx and morphine for severe pain. Condition: Stable - Instructions Diet, Activity, Other Instructions: Postoperative instructions: You had a laparoscopic cholecystectomy on DATE by Dr. David Le of [facility]. Activity: Resume your usual activities gradually, but no heavy exertion or lifting more than 10-15 pounds for 1 month. Remove dressings 48 hours after surgery; sticky tapes underneath will fall off by themselves. You may shower daily starting then, just pat the incision areas dry. Eat lightly at first, but advance to your usual diet as tolerated. Pain: For pain, you may use and alternate Tylenol (acetaminophen) and/or ibuprofen every 6 hours each as needed; this means that you can take one OR the other at 3-hour intervals. If you are prescribed a Tylenol/narcotic combination for severe pain, use it instead of plain Tylenol as needed and switch back when your pain starts decreasing. Do not take more than 4000mg of acetaminophen in a day. Take medications as prescribed or indicated on the labeling. Follow-up: Call Dr. Le' office at [phone] to make your postop appointment (Saturday ~2 weeks after surgery). Clinic is held in the [facility] on the first floor of [facility]. Call the office if you have: * increasing pain not responsive to pain medication * fever of 101F or higher * vomiting * unusual or increasing bleeding or drainage from wounds * increasing redness or swelling at wound sites * inability to urinate Also, see your primary medical doctor within 1-2 weeks. Referrals: Velasquez Garcia MD [Primary Care Provider] - Disposition: VNS/HOME HEALTH CARE - Home Medications Comprehensive Discharge Medication List: Ambulatory Orders Amlodipine Besylate [Norvasc -] 5 mg PO DAILY #30 tablet 01/31/16 Nebivolol [Bystolic -] 10 mg PO DAILY #30 tab 02/01/16
--- NOTE | 2017-05-01 17:31 | PN ---
Progress Note, Physician Chief Complaint: Acute Cholecystitis History of Present Illness: NAD, in mild pain OOB with PT, states his knees ana at times due his back Seen by Surgery, ID and GI POD #2, tolerating po intake - Current Medication List Current Medications: Active Medications Acetaminophen (Tylenol -) 650 mg PO Q4H PRN PRN Reason: FEVER OR PAIN Albuterol/Ipratropium (Duoneb -) 1 amp NEB QIDR [facility] Last Admin: 05/01/17 11:22 Dose: Not Given Amlodipine Besylate (Norvasc -) 5 mg PO DAILY [facility] Ceftriaxone Sodium 2 gm/ (Dextrose) 100 mls @ 200 mls/hr IVPB DAILY [facility] Last Admin: 05/01/17 09:48 Dose: 200 mls/hr Potassium Chloride/Dextrose/Sod Cl (D5-1/2ns+20 Meq Kcl -) 20 meq in 1,000 mls @ 125 mls/hr IV ASDIR [facility] Last Admin: 05/01/17 09:48 Dose: 125 mls/hr Metronidazole (Flagyl 500mg Premixed Ivpb -) 500 mg in 100 mls @ 100 mls/hr IVPB Q8H-IV [facility] Last Admin: 05/01/17 10:57 Dose: 100 mls/hr Pantoprazole Sodium 80 mg/ (Sodium Chloride) 100 mls @ 10 mls/hr IVPB Q10H [facility] PRN Reason: 8 MG/HR Last Admin: 05/01/17 16:32 Dose: 10 mls/hr Morphine Sulfate (Morphine Sulfate) 4 mg IVPUSH Q6H PRN PRN Reason: PAIN LEVEL 6-10 Last Admin: 05/01/17 00:08 Dose: 4 mg Nebivolol (Bystolic -) 10 mg PO DAILY [facility] Ondansetron HCl (Zofran Injection) 4 mg IVPUSH Q6H PRN PRN Reason: NAUSEA - Objective Vital Signs: Vital Signs Temperature 98.1 F 05/01/17 14:00 Pulse Rate 94 H 05/01/17 14:00 Respiratory Rate 20 05/01/17 14:00 Blood Pressure 156/80 05/01/17 14:00 O2 Sat by Pulse Oximetry (%) 96 05/01/17 11:20 Constitutional: Yes: Well Nourished, No Distress, Calm Cardiovascular: Yes: Regular Rate and Rhythm Respiratory: Yes: Regular Gastrointestinal: Yes: Normal Bowel Sounds Musculoskeletal: Yes: Muscle Weakness Extremities: Yes: WNL Wound/Incision: Yes: Steri Strips Neurological: Yes: Alert, Oriented Psychiatric: Yes: Alert, Oriented Labs: CBC, BMP 05/01/17 07:30 05/01/17 07:30 INR, PTT INR 1.03 (0.82-1.09) 04/25/17 07:30 Problem List - Problems (1) HTN (hypertension) Assessment/Plan: -restart BP meds bystolic and Amlodipine Code(s): I10 - ESSENTIAL (PRIMARY) HYPERTENSION (2) Abdominal pain Assessment/Plan: -mild -pain management Code(s): R10.9 - UNSPECIFIED ABDOMINAL PAIN Qualifiers: Abdominal location: generalized Qualified Code(s): R10.84 - Generalized abdominal pain (3) Abnormal LFTs Assessment/Plan: -seen by GI -improved Code(s): R79.89 - OTHER SPECIFIED ABNORMAL FINDINGS OF BLOOD CHEMISTRY (4) Cholecystitis, acute Assessment/Plan: -Seen by Surgery -ok to be discharged home on po abx Code(s): K81.0 - ACUTE CHOLECYSTITIS Assessment/Plan see problem list
[2017-05-01] MEDS: amLODIPine BESYLATE 5 MG TABLET (FP) PO SCH (17:58)
[2017-05-01] MEDS: NEBIVOLOL 10 MG TABLET (FP) PO SCH (20:00)
[2017-05-02] MEDS: ALBUTEROL SO4 2.5/IPRATROPIUM 0.5 INH SOL 3 ML VIAL.NEB. NEB SCH ×3 (00:12→11:15)
[2017-05-02] MEDS: METRONIDAZOLE 500 MG PREMIXED 500 MG/100 ML MG IVPB SCH ×2 (02:13→09:42)
[2017-05-02] MEDS: PANTOPRAZOLE SODIUM 80 MG in SODIUM CHLORIDE 100 ML IVPB SCH (02:55)
--- NOTE | 2017-05-02 08:04 | PN ---
Progress Note (short form) - Note Progress Note: Patient seen and examined because he remained in-house. s/p lap cholecystectomy POD#3 he is stable, afebrile, tolerating diet and has resumed normal GI function. He reports that the abdominal pain is much improved compared to pre- op. He reports feeling able to take a full deep breath. Wounds are clean and dry. He can be discharged home and followup two weeks later. Thank you for the opportunity to participate in the care of this patient. Problem List - Problems (1) Acute gangrenous cholecystitis Code(s): K81.0 - ACUTE CHOLECYSTITIS (2) Cholelithiasis and cholecystitis without obstruction Code(s): K80.10 - CALCULUS OF GALLBLADDER W CHRONIC CHOLECYST W/O OBSTRUCTION Qualifiers: Cholelithiasis location: gallbladder and bile duct Cholecystitis acuity: acute and chronic Qualified Code(s): K80.66 - Calculus of gallbladder and bile duct with acute and chronic cholecystitis without obstruction (3) Abdominal pain Code(s): R10.9 - UNSPECIFIED ABDOMINAL PAIN Qualifiers: Abdominal location: generalized Qualified Code(s): R10.84 - Generalized abdominal pain (4) Vomiting with nausea, not intractable Code(s): R11.2 - NAUSEA WITH VOMITING, UNSPECIFIED Qualifiers: Vomiting type: unspecified Qualified Code(s): R11.2 - Nausea with vomiting , unspecified (5) Nausea Code(s): R11.0 - NAUSEA
--- NOTE | 2017-05-02 08:22 | DS ---
Physical Examination Vital Signs: Vital Signs Temperature 98.9 F 05/02/17 06:35 Pulse Rate 100 H 05/02/17 06:35 Respiratory Rate 20 05/02/17 06:35 Blood Pressure 137/66 05/02/17 06:35 O2 Sat by Pulse Oximetry (%) 96 05/01/17 21:00 Cardiovascular: Yes: Regular Rate and Rhythm Respiratory: Yes: Regular, CTA Bilaterally Gastrointestinal: Yes: Normal Bowel Sounds, Soft. No: Tenderness Labs: CBC, BMP 05/01/17 07:30 05/01/17 07:30 Discharge Summary Reason For Visit: ABD PAIN Current Active Problems Abdominal pain (Acute) Abnormal LFTs (Acute) Acute gangrenous cholecystitis (Acute) Alcohol consumption of one to four drinks per day (Acute) CKD (chronic kidney disease) (Acute) Cholecystitis, acute (Acute) Cholelithiasis and cholecystitis without obstruction (Acute) Discogenic low back pain (Acute) Gastritis (Acute) H/O prostate cancer (Acute) H/O renal cell cancer (Acute) HTN (hypertension) (Acute) Hyperlipidemia (Acute) Pneumonia (Acute) Vomiting with nausea, not intractable (Acute) Hospital Course: 72yo M with HTN, HLD, h/o renal and prostate CA, kidney stones, gallstones, daily smoker and drinker, began having bilious vomiting possibly since saturday after ice cream, which persisted every 15-30 minutes through the morning. and may have had 25 episodes since then. He reports persistent abdominal pain and nausea, no more vomiting and no NGT. During his stay he was diagnosed with acute cholecystitis and was evaluated by General surgery. Cholecystectomy was performed. Patient is tolerating PO intake , was treated with IV abx and morphine for severe pain. Condition: Stable - Instructions Diet, Activity, Other Instructions: Postoperative instructions: You had a laparoscopic cholecystectomy on DATE by Dr. David Le of [facility]. Activity: Resume your usual activities gradually, but no heavy exertion or lifting more than 10-15 pounds for 1 month. Remove dressings 48 hours after surgery; sticky tapes underneath will fall off by themselves. You may shower daily starting then, just pat the incision areas dry. Eat lightly at first, but advance to your usual diet as tolerated. Pain: For pain, you may use and alternate Tylenol (acetaminophen) and/or ibuprofen every 6 hours each as needed; this means that you can take one OR the other at 3-hour intervals. If you are prescribed a Tylenol/narcotic combination for severe pain, use it instead of plain Tylenol as needed and switch back when your pain starts decreasing. Do not take more than 4000mg of acetaminophen in a day. Take medications as prescribed or indicated on the labeling. Follow-up: Call Dr. Le' office at [phone] to make your postop appointment (Saturday ~2 weeks after surgery). Clinic is held in the Diagnostic [facility] on the first floor of [facility]. Call the office if you have: * increasing pain not responsive to pain medication * fever of 101F or higher * vomiting * unusual or increasing bleeding or drainage from wounds * increasing redness or swelling at wound sites * inability to urinate Also, see your primary medical doctor within 1-2 weeks. Referrals: Velasquez Garcia MD [Primary Care Provider] - Disposition: VNS/HOME HEALTH CARE Condition: Stable - Instructions Diet, Activity, Other Instructions: Postoperative instructions: You had a laparoscopic cholecystectomy on DATE by Dr. David Le of [facility]. Activity: Resume your usual activities gradually, but no heavy exertion or lifting more than 10-15 pounds for 1 month. Remove dressings 48 hours after surgery; sticky tapes underneath will fall off by themselves. You may shower daily starting then, just pat the incision areas dry. Eat lightly at first, but advance to your usual diet as tolerated. Pain: For pain, you may use and alternate Tylenol (acetaminophen) and/or ibuprofen every 6 hours each as needed; this means that you can take one OR the other at 3-hour intervals. If you are prescribed a Tylenol/narcotic combination for severe pain, use it instead of plain Tylenol as needed and switch back when your pain starts decreasing. Do not take more than 4000mg of acetaminophen in a day. Take medications as prescribed or indicated on the labeling. Follow-up: Call Dr. Le' office at [phone] to make your postop appointment (Saturday ~2 weeks after surgery). Clinic is held in the Diagnostic Center on the first floor of [facility]. Call the office if you have: * increasing pain not responsive to pain medication * fever of 101F or higher * vomiting * unusual or increasing bleeding or drainage from wounds * increasing redness or swelling at wound sites * inability to urinate Also, see your primary medical doctor within 1-2 weeks. -Low sodium diet -Continue your regular medication regimen -Tylenol 500 mg every 4-6 hours as needed for mild to moderate pain -Tramadol 50 mg every 8 hours as needed for severe pain -Follow up with PCP in 2 weeks Referrals: Velasquez Garcia MD [Primary Care Provider] - Disposition: VNS/HOME HEALTH CARE - Home Medications Comprehensive Discharge Medication List: Ambulatory Orders Albuterol 2.5/Ipratropium 0.5 [Duoneb -] 1 amp NEB QIDR #120 amp 05/01/17 Amlodipine Besylate [Norvasc -] 5 mg PO DAILY #30 tablet 05/01/17 Cephalexin [Keflex] 500 mg PO QID 5 Days #20 capsule 05/01/17 Metronidazole [Flagyl -] 500 mg PO TID #15 tablet 05/01/17 Nebivolol [Bystolic -] 10 mg PO DAILY #30 tab 05/01/17 Tramadol HCl 50 mg PO Q8H #15 tablet MDD 3 05/01/17
[2017-05-02] MEDS: amLODIPine BESYLATE 5 MG TABLET (FP) PO SCH (09:42)
[2017-05-02] MEDS: NEBIVOLOL 10 MG TABLET (FP) PO SCH (09:43)
[2017-05-02] MEDS ORDERED: PT OWN MED DRAWER 7, Y5N ONE (10:20)
--- NOTE | 2017-05-02 10:31 | PATH ---
Surgical Pathology Report Patient Name: NADINE BALLESTEROS [facility]. Rec. #: [id number] /Age/Gender: 1945 (Age: 72) / M Account: [id number] Location: [address] [place] [address]/[facility] Taken: 04/30/2017 Received: 04/30/2017 Reported: 05/02/2017 Physicians: Anthony Liriano M.D. Specimen(s) Received GALLBLADDER AND GALLSTONES Clinical History Acute cholecystitis Final Diagnosis GALLBLADDER, CHOLECYSTECTOMY: ACUTE NECROTIZING (GANGRENOUS) CHOLECYSTITIS. CHOLELITHIASIS. Electronically Signed Maddie Yip M.D. Gross Description Received in formalin, labeled "gallbladder," is a 9.0 x 4.5 x 3.6 cm. gallbladder with a 0.2 cm. in length portion of cystic duct attached. The outer surface is bourgeois-green and gangrenous. The lumen contains brown blood as well as a 3.7 cm in greatest dimension black, irregular cholelith. The mucosa is hyperemic. The wall of the gallbladder ranges from 0.1-0.9 cm. in thickness. Tacker Off sections are submitted in one cassette. 04/30/201704/30/2017
[2017-05-02 10:42] VITALS: PULSE 92
[2017-05-02] MEDS: CEFTRIAXONE 2 GM in DEXTROSE 5%-WATER - 100 ML IVPB SCH (10:44)
[2017-05-02 14:03] VITALS: BP 132/91; TEMP 97.9
== END 2017-05-02 16:19 | disposition home health service (06) | DRG 417 ==
LOC: JER 09:30 → JERBED 14:14 → J6S 18:04
PROVIDERS: ADMIT Family Medicine; ATTEND Family Medicine
PROC: 0FT44ZZ Resection of Gallbladder, Percutaneous Endoscopic Approach (ICD-10-PCS; principal; 2017-04-29 10:30)
DX: K80.00 Calculus of gallbladder with acute cholecystitis without obstruction (principal); J18.9 Pneumonia, unspecified organism; I10 Essential (primary) hypertension; E78.5 Hyperlipidemia, unspecified; F17.210 Nicotine dependence, cigarettes, uncomplicated; F10.10 Alcohol abuse, uncomplicated; Z85.528 Personal history of other malignant neoplasm of kidney; Z85.46 Personal history of malignant neoplasm of prostate; Z96.651 Presence of right artificial knee joint; Z90.5 Acquired absence of kidney; K29.00 Acute gastritis without bleeding; Z86.010 Personal history of colon polyps; K57.30 Diverticulosis of large intestine without perforation or abscess without bleeding; M51.86 Other intervertebral disc disorders, lumbar region; Z88.0 Allergy status to penicillin
CPT/HCPCS: 36415; 71010-TC; 71020-TC; 71250-TC; 74020-TC; 74176-TC; 74181-TC; 80053; 80074; 83690; 85025; 85610; 86140; 86850; 86900; 86901; 87040; 88304-TC; 90670; 93005; 93010; 94640; 94760; 97116-GP; 97161-GP; 99283-25; J1644

== ENCOUNTER 2018-12-14 10:21 | Inpatient (IN) | payer OTHER, BC ==
--- NOTE | 2018-12-14 11:36 | PDOC ---
History of Present Illness - General Chief Complaint: Pain, Acute Stated Complaint: ABD PAIN Time Seen by Provider: 12/14/18 11:03 History Source: Patient Exam Limitations: No Limitations - History of Present Illness Initial Comments: 12/14/18 11:35 73 yo M pmh HTN, prostate ca s/p radiation presents with 3 days of constant midline and left sided abdominal pain. Pt states he has a tender left sided abdominal mass, noticed 3 days ago. Pain is nonradiating. Denies N/V/D, constipation, bloody stool. Last BM 2 days ago./ No change in appetite - PO tolerant. Denies F/C, chest pain, SOB, dysuria, frequency, hematuria. (+) h/o cholecystectomy. PMH: HTN, Prostate Ca Surg Hx: partial renal resection, cholecystecomy Allergy to ACEi and PCN 12/14/18 13:35 Past History - Past Medical History Allergies/Adverse Reactions: Allergies Allergy/AdvReac Type Severity Reaction Status Date / Time JENNIFER Inhibitors Allergy Verified 12/14/18 10:26 Penicillins Allergy Verified 12/14/18 10:26 Home Medications: Ambulatory Orders Amlodipine Besylate [Norvasc -] 5 mg PO DAILY #30 tablet 05/01/17 Metoprolol Succinate 25 mg PO DAILY 12/14/18 Cancer: Yes (PROSTATE) COPD: No GI Disorders: Yes HTN: No Hypercholesterolemia: Yes Kidney Stones: Yes - Surgical History Cholecystectomy: Yes Orthopedic Surgery: Yes (RT KNEE REPLACEMENT AT 2007) - Immunization History Immunization Up to Date: Yes - Suicide/Smoking/Psychosocial Hx Smoking History: Current some day smoker Have you smoked in the past 12 months: Yes Number of Cigarettes Smoked Daily: 10 (for 30 years) If you are a former smoker, when did you quit?: 5YRS AGO Information on smoking cessation initiated: No 'Breaking Loose' booklet given: 04/24/17 Hx Alcohol Use: Yes (DAILY 3 GIN/DAY) Drug/Substance Use Hx: No Substance Use Type: Alcohol Hx Substance Use Treatment: No Review of Systems - Review of Systems Able to Perform ROS?: Yes Is the patient limited Urdu proficient: No Constitutional: No: Fever, Loss of Appetite HEENTM: No: Symptoms Reported, See HPI, Eye Pain, Blurred Vision, Tearing, Recent change in vision, Double Vision, Cataracts, Ear Pain, Ocular Prothesis, Ear Discharge, Nose Pain, Nose Congestion, Tinnitus, Nose Bleeding, Hearing Loss , Throat Pain, Throat Swelling, Mouth Pain, Dental Problems, Difficulty Swallowing, Mouth Swelling, Other Respiratory: No: Symptoms reported, See HPI, Cough, Orthopnea, Shortness of Breath, SOB with Exertion, SOB at Rest, Stridor, Wheezing, Productive cough, Hemoptysis, Other Cardiac (ROS): No: Symptoms Reported, See HPI, Chest Pain, Edema, Irregular Heart Rate, Lightheadedness, Palpitations, Syncope, Chest Tightness, Other ABD/GI: Yes: See HPI. No: Abdominal Distended, Blood Streaked Bowels, Constipated, Diarrhea, Difficulty Swallowing, Nausea, Poor Appetite, Poor Fluid Intake, Vomiting, Tarry Stools : No: Burning, Dysuria, Discharge, Frequency, Flank Pain, Hematuria, Incontinence, Pain, Urgency *Physical Exam - Vital Signs Last Vital Signs Temp Pulse Resp BP Pulse Ox 98.6 F 107 H 20 123/77 10 L 12/14/18 10:24 12/14/18 10:24 12/14/18 10:24 12/14/18 10:24 12/14/18 10:24 - Physical Exam Comments: 12/14/18 12:46 GEN: resting comfortably in bed, NAD HEENT: NC/AT, EOMI, PERRLA CV: S1/S2, RRR, no m/r/g LUNG: CTAB, no wheezes/rales GI: soft, no guarding. TTP: midline; left of umbilicus, and right of umbilicus. Laproscopic surgical scars present. Nonreducible mass directly left of umbilicus with overlying surgical scar. ED Treatment Course - LABORATORY CBC & Chemistry Diagram: 12/14/18 12:53 12/14/18 12:53 Medical Decision Making - Medical Decision Making 12/14/18 12:48 73 yo M with 3 days of abdominal pain with "lump." h/o abdominal surgery. Nonreducible mass on PE. Likely hernia Abdominal pain and "lump" - pre-op labs, cxr - NPO - IV, NS, pain control - CT A/P w/ con. 12/14/18 14:19 CXR reviewed f/u CT 12/14/18 15:57 CT A/P demonstrated a rectal sheath hematoma Spoke with the radiologist substation supervisor (Dr. Godoy) who confirmed the finding. Spoke with Sasha Allen NP who accepted the patient 12/14/18 18:45: Spoke to Pt who brought up pt is on Repatha and injects that medication into the same site the hematoma exists. This is a possible etiology of the rectus sheath hematoma. Dispo: admit to med/surg *DC/Admit/Observation/Transfer Diagnosis at time of Disposition: Rectus sheath hematoma Qualifiers: Encounter type: initial encounter Qualified Code(s): S30.1XXA - Contusion of abdominal wall, initial encounter - Discharge Dispostion Condition at time of disposition: Stable Decision to Admit order: Yes - Referrals Referrals: Nick Fofana MD [Primary Care Provider] - - Patient Instructions - Post Discharge Activity
[2018-12-14] MEDS ORDERED: ACETAMINOPHEN 1000 MG/100 ML VIAL (NON FORMULARY) IVPB ONE (12:56)
[2018-12-14] MEDS ORDERED: ACETAMINOPHEN INJECTION 100 ML IVPB ONE (13:03)
[2018-12-14 13:09] LABS: BASO % 0.6 % (0-2.0); EOS % 1.3 % (0-4.5); HEMATOCRIT 32.7 % (35.4-49); HEMOGLOBIN 11.3 GM/dL (11.7-16.9); LYMPH % 5.6 % (8-40); MCH 32.7 pg (25.7-33.7); MCHC 34.5 g/dl (32.0-35.9); MEAN CELL VOLUME 94.6 fl (80-96); MONO % 7.7 % (3.8-10.2); NEUT % 84.8 % (42.8-82.8); RBC 3.46 M/mm3 (4.00-5.60); RDW 13.5 % (11.9-15.9); WHITE BLOOD COUNT 7.8 K/mm3 (4.0-10.0)
[2018-12-14 13:18] LABS: INR 1.05 (0.83-1.09); PROTHROMBIN TIME (PATIENT) 12.4 SEC (9.7-13.0)
[2018-12-14 13:23] LABS: ALBUMIN 3.3 g/dl (3.4-5.0); BILIRUBIN,TOTAL 0.5 mg/dL (0.2-1); BLOOD UREA NITROGEN 19.3 mg/dL (7-18); CALCIUM 8.9 mg/dL (8.5-10.1); CREATININE 1.4 mg/dL (0.55-1.3); POTASSIUM 4.1 mmol/L (3.5-5.1); TOT PROT 6.9 g/dl (6.4-8.2)
[2018-12-14 13:24] LABS: PLATELET COUNT 287 K/MM3 (134-434)
[2018-12-14] MEDS ORDERED: SODIUM CHLORIDE 0.9% 500 ML INFUS.BAG IV ONE (13:41)
--- NOTE | 2018-12-14 13:58 | PDOC ---
Documentation entered by Martin Melendez SCRIBE, acting as scribe for Della Sin MD. Della Sin MD: This documentation has been prepared by the Al guzman Daniel, SCRIBE, under my direction and personally reviewed by me in its entirety. I confirm that the documentation accurately reflects all work, treatment, procedures, and medical decision making performed by me. Attending Attestation - Resident Resident Name: Norris Lisa - HPI HPI: 12/14/18 12:53 The patient is a 73 year old male with a past medical history of prostate cancer s/p radiation here today for evaluation of left sided abdominal pain. The patient reports that he has had left sided abdominal pain for 3 days that is getting worse and notes having a mass around his left lower quadrant. He reports having a normal PO intake and that his bowel movement was 2 days ago but is passing gas. Patient denies headache, lightheadedness. Denies fever, chills. Denies chest pain, shortness of breath. Denies nausea, vomiting, diarrhea. Allergies: JENNIFER inhibitors, penicillins Surgical history: Cholecystectomy PCP: Nick Fofana - Physicial Exam PE: 12/14/18 12:53 GENERAL: Awake, alert, and fully oriented, in no acute distress ABDOMEN: +diffuse tenderness with explicit tenderness over 2 cm mass directly under scar in LLQ with guarding. Soft, normoactive bowel sounds. No no rebound. - Medical Decision Making 12/14/18 13:54 Pt presents to the ED complaining of the acute onset of LLQ abdominal pain and an exquisitely tender LLQ mass in the area of an old incision three days ago. Patient had recent CT that showed no acute abdominal pathology, but was not experiencing pain at that time. Will give pain control and repeat the CT. Concern for hernia vs abscess vs other intraabodminal mass.
--- NOTE | 2018-12-14 15:29 | EKG ---
Test Reason : Blood Pressure : / mmHG Vent. Rate : 089 BPM Atrial Rate : 089 BPM P-R Int : 166 ms QRS Dur : 078 ms QT Int : 368 ms P-R-T Axes : 034 -15 034 degrees QTc Int : 447 ms POOR DATA QUALITY, INTERPRETATION MAY BE ADVERSELY AFFECTED NORMAL SINUS RHYTHM NONSPECIFIC T WAVE ABNORMALITY ABNORMAL ECG WHEN COMPARED WITH ECG OF 28-APR-2017 11:53, NO SIGNIFICANT CHANGE WAS FOUND Confirmed by YANETH BLACK, GILDA ([id number]) on 12/14/2018 3:28:29 PM Referred By: Confirmed By:GILDA WOLFE MD
[2018-12-14] MEDS ORDERED: ACETAMINOPHEN 325 MG TABLET (FP) PO PRN (16:17)
--- NOTE | 2018-12-14 20:09 | HP ---
Admitting History and Physical - Admission Chief Complaint: Abdominal Pain History of Present Illness: Patient is a 73 y/o male with past medical history of HTN and Prostate CA. Patient presented to ER after experiencing constant, sharp abdominal pain left of umbilicus for 3 days. No nausea, vomiting, diarrhea, constipation is associated with abdominal pain. Denies change in appetite. Denies trauma or injury to painful area. History Source: Patient Limitations to Obtaining History: No Limitations - Past Medical History Cardiovascular: Yes: HTN, Hyperlipdemia. No: AFIB, Aneurysm, Aortic Insufficiency, Aortic Stenosis, CAD, CHF, Deep Vein Thrombosis, MN, Mitral Insufficiency, Mitral Stenosis, Murmur, Pulmonary Hypertension, Other Gastrointestinal: Yes: Other (gallstones) Hepatobiliary: Yes: Cholelithiasis Renal/: Yes: Cancer (renal cell s/p L lower renal lobectomy; prostate s/p radiation only), Renal Calculi Musculoskeletal: Yes: Osteoarthritis (knees) - Past Surgical History Past Surgical History: Yes: Cholecystectomy, Colonoscopy (with precancerous polyps, usually gets scoped [id number]), Joint Replacement (right knee), Nephrectomy (left lower partial) - Smoking History Smoking history: Current some day smoker Have you smoked in the past 12 months: Yes Aproximately how many cigarettes per day: 10 (for 30 years) If you are a former smoker, when did you quit?: 5YRS AGO - Alcohol/Substance Use Hx Alcohol Use: Yes (DAILY 3 GIN/DAY) History of Substance Use: reports: None - Social History Usual Living Arrangement: Yes: With Spouse ADL: Independent Home Medications - Allergies Allergies/Adverse Reactions: Allergies Allergy/AdvReac Type Severity Reaction Status Date / Time JENNIFER Inhibitors Allergy Verified 12/14/18 10:26 Penicillins Allergy Verified 12/14/18 10:26 - Home Medications Home Medications: Ambulatory Orders Amlodipine Besylate [Norvasc -] 5 mg PO DAILY #30 tablet 05/01/17 Metoprolol Succinate 25 mg PO DAILY 12/14/18 Review of Systems - Review of Systems Constitutional: reports: No Symptoms Eyes: reports: No Symptoms HENT: reports: No Symptoms Neck: reports: No Symptoms Cardiovascular: reports: No Symptoms Respiratory: reports: No Symptoms Gastrointestinal: reports: Abdominal Pain Genitourinary: reports: No Symptoms Breasts: reports: No Symptoms Reported Musculoskeletal: reports: No Symptoms Integumentary: reports: No Symptoms Neurological: reports: No Symptoms Endocrine: reports: No Symptoms Hematology/Lymphatic: reports: No Symptoms Psychiatric: reports: No Symptoms Physical Examination Vital Signs: Vital Signs Temperature 98.6 F 12/14/18 10:24 Pulse Rate 78 12/14/18 16:00 Respiratory Rate 18 12/14/18 16:00 Blood Pressure 132/78 12/14/18 16:00 O2 Sat by Pulse Oximetry (%) 99 12/14/18 16:00 Constitutional: Yes: No Distress, Calm Eyes: Yes: Conjunctiva Clear HENT: Yes: Atraumatic Cardiovascular: Yes: Regular Rate and Rhythm Respiratory: Yes: Regular, CTA Bilaterally Gastrointestinal: Yes: Normal Bowel Sounds, Soft, Tenderness (Left of umbilicus) Musculoskeletal: Yes: WNL Extremities: Yes: WNL Edema: No Neurological: Yes: Alert, Oriented Psychiatric: Yes: Alert, Oriented Labs: CBC, BMP 12/14/18 12:53 12/14/18 12:53 Imaging - Results Cat Scan: Report Reviewed Problem List - Problems (1) Rectus sheath hematoma Assessment/Plan: -Abdominal CT scan shows left rectus sheath hematoma which has developed since , hypodense mass within the dome of the spleen measuring 2.8cm -IR and Surgical consult -coag panel wnl -Hg 11.3 -Abdominal US in AM to see if hematoma growing in size Code(s): S30.1XXA - CONTUSION OF ABDOMINAL WALL, INITIAL ENCOUNTER Qualifiers: Encounter type: initial encounter Qualified Code(s): S30.1XXA - Contusion of abdominal wall, initial encounter (2) Abdominal pain Assessment/Plan: -pain control Code(s): R10.9 - UNSPECIFIED ABDOMINAL PAIN Qualifiers: Abdominal location: generalized Qualified Code(s): R10.84 - Generalized abdominal pain (3) HTN (hypertension) Assessment/Plan: -Amlodipine and Metoprolol -low Na diet Code(s): I10 - ESSENTIAL (PRIMARY) HYPERTENSION (4) Abnormal LFTs Assessment/Plan: -BUN/Cr 19.3/1.4 -monitor renal function Code(s): R79.89 - OTHER SPECIFIED ABNORMAL FINDINGS OF BLOOD CHEMISTRY (5) Splenic mass Assessment/Plan: -Abdominal CT scan shows left rectus sheath hematoma which has developed since , hypodense mass within the dome of the spleen measuring 2.8cm -GI consult Code(s): R16.1 - SPLENOMEGALY, NOT ELSEWHERE CLASSIFIED Assessment/Plan see problem list dvt ppx
[2018-12-14] MEDS ORDERED: HEPARIN NA (PORCINE) 5,000 UNITS/ML 1ML VIAL ONE (22:44)
[2018-12-14] MEDS: HEPARIN NA (PORCINE) 5,000 UNITS/ML 1ML VIAL SQ SCH (22:49)
[2018-12-15] MEDS ORDERED: ACETAMINOPHEN 325 MG TABLET (FP) ONE (00:13)
[2018-12-15 01:40] VITALS: BMI 26.6
[2018-12-15 09:36] LABS: BASO % 0.5 % (0-2.0); EOS % 1.3 % (0-4.5); HEMOGLOBIN 10.9 GM/dL (11.7-16.9); LYMPH % 4.8 % (8-40); MCH 32.6 pg (25.7-33.7); MCHC 34.1 g/dl (32.0-35.9); MEAN CELL VOLUME 95.4 fl (80-96); MEAN PLT VOLUME 7.6 fl (7.5-11.1); MONO % 7.8 % (3.8-10.2); NEUT % 85.6 % (42.8-82.8); PLATELET COUNT 290 K/MM3 (134-434); RBC 3.36 M/mm3 (4.00-5.60); RDW 13.9 % (11.9-15.9)
[2018-12-15] MEDS ORDERED: metoPROLOL SUCCINATE 25 MG TAB.SR.24H (FP) PO SCH (10:00)
[2018-12-15] MEDS ORDERED: amLODIPine BESYLATE 5 MG TABLET (FP) PO SCH (10:00)
[2018-12-15] MEDS: HEPARIN NA (PORCINE) 5,000 UNITS/ML 1ML VIAL SQ SCH (11:12)
--- NOTE | 2018-12-15 11:57 | PN ---
Progress Note, Physician Chief Complaint: LLQ abdominal pain Rectal sheath hematoma History of Present Illness: NAD c/o LLQ pain only on palpation or coughing CT abd showed rectus sheath hematoma - Current Medication List Current Medications: Active Medications Acetaminophen (Tylenol -) 650 mg PO Q6H PRN PRN Reason: PAIN LEVEL 6-10 Last Admin: 12/15/18 00:17 Dose: 650 mg Amlodipine Besylate (Norvasc -) 5 mg PO DAILY FOR[facility]LY [facility] Last Admin: 12/15/18 11:12 Dose: 5 mg Heparin Sodium (Porcine) (Heparin -) 5,000 unit SQ BID [facility]LY [facility], [facility]1983 Last Admin: 12/15/18 11:12 Dose: 5,000 unit Metoprolol Succinate (Toprol Xl -) 25 mg PO DAILY [facility] Last Admin: 12/15/18 11:12 Dose: 25 mg - Objective Vital Signs: Vital Signs Temperature 99.1 F 12/15/18 10:31 Pulse Rate 84 12/15/18 10:31 Respiratory Rate 18 12/15/18 10:31 Blood Pressure 133/73 12/15/18 10:31 O2 Sat by Pulse Oximetry (%) 99 12/15/18 00:17 Constitutional: Yes: Well Nourished, No Distress, Calm Cardiovascular: Yes: Regular Rate and Rhythm Respiratory: Yes: Regular Gastrointestinal: Yes: Normal Bowel Sounds, Tenderness (LLQ) Genitourinary: Yes: WNL Musculoskeletal: Yes: WNL Extremities: Yes: WNL Edema: No Peripheral Pulses WNL: Yes Neurological: Yes: Alert, Oriented Psychiatric: Yes: Alert, Oriented Labs: CBC, BMP 12/15/18 08:14 INR, PTT INR 1.05 (0.83-1.09) 12/14/18 12:53 Assessment/Plan (1) Rectus sheath hematoma Assessment/Plan: -Abdominal CT scan shows left rectus sheath hematoma which has developed since , hypodense mass within the dome of the spleen measuring 2.8cm -seen by surgery, no surgical drainage or intervention recommended Code(s): S30.1XXA - CONTUSION OF ABDOMINAL WALL, INITIAL ENCOUNTER Qualifiers: Encounter type: initial encounter Qualified Code(s): S30.1XXA - Contusion of abdominal wall, initial encounter (2) Abdominal pain Assessment/Plan: -pain control Code(s): R10.9 - UNSPECIFIED ABDOMINAL PAIN Qualifiers: Abdominal location: generalized Qualified Code(s): R10.84 - Generalized abdominal pain (3) HTN (hypertension) Assessment/Plan: -Amlodipine and Metoprolol -low Na diet Code(s): I10 - ESSENTIAL (PRIMARY) HYPERTENSION
[2018-12-15 12:12] LABS: BILIRUBIN,TOTAL 0.7 mg/dL (0.2-1); BLOOD UREA NITROGEN 17.6 mg/dL (7-18); CALCIUM 8.7 mg/dL (8.5-10.1); CREATININE 1.4 mg/dL (0.55-1.3); MAGNESIUM 1.6 mg/dL (1.8-2.4); PHOSPHOROUS 4.1 mg/dL (2.5-4.9); POTASSIUM 3.8 mmol/L (3.5-5.1); TOT PROT 6.7 g/dl (6.4-8.2)
--- NOTE | 2018-12-15 13:05 | CONSULT ---
Consult Consult Specialty:: General Surgery Referred by:: Jennyfer Allen Reason for Consultation:: left rectus sheath hematoma - History of Present Illness Chief Complaint: left abdominal wall pain History of Present Illness: 73yo M with multiple medical problems, known to our group from [facility] 04/19, presented to ER yesterday with left abdominal wall pain since /Saturday, getting worse over weekend. He denies any antecedent trauma, but does admit to a recent cold with some coughing. He also may have lifted a large dog. He indicates an area over the left medial abdomen where the pain/tenderness is the most, and he can feel a small lump. In the ER, imaging showed left rectus sheath hematoma. He does not take aspirin or blood thinners at home, uses tylenol for pain only. He was getting Repatha injections every 2 weeks, last about 2 months ago, in his abdomen, but no other injections. He was admitted to medicine, and surgery was asked to assess. He is seen and examined in bed, resting comfortably. He states his pain is a little better. It does hurt to cough. He denies other symptoms, including n/v, f /c, change in bowel habits or pain elsewhere. He is sure he did not bump against anything recently. - History Source History Provided By: Patient, Medical Record Limitations to Obtaining History: No Limitations - Past Medical History Cardio/Vascular: Yes: HTN, Hyperlipdemia Gastrointestinal: Yes: Other (gallstones) Hepatobiliary: Yes: Cholelithiasis, Cholecystitis Renal/: Yes: Cancer (renal cell s/p L lower renal lobectomy; prostate s/p radiation only), Renal Calculi Musculoskeletal: Yes: Osteoarthritis (knees) - Past Surgical History Past Surgical History: Yes: Cholecystectomy (laparoscopic (gangrenous) 04/19), Colonoscopy (with precancerous polyps, usually gets scoped [id number]), Joint Replacement (right knee), Nephrectomy (left lower partial) - Alcohol/Substance Use Hx Alcohol Use: Yes (DAILY 3 GIN/DAY) History of Substance Use: reports: None - Smoking History Smoking history: Current some day smoker Have you smoked in the past 12 months: Yes Aproximately how many cigarettes per day: 10 - Social History ADL: Independent Home Medications - Allergies Allergies/Adverse Reactions: Allergies Allergy/AdvReac Type Severity Reaction Status Date / Time JENNIFER Inhibitors Allergy Verified 12/14/18 10:26 Penicillins Allergy Verified 12/14/18 10:26 - Home Medications Home Medications: Ambulatory Orders Amlodipine Besylate [Norvasc -] 5 mg PO DAILY #30 tablet 05/01/17 Metoprolol Succinate 25 mg PO DAILY 12/14/18 Family Disease History - Family Disease History Family History: Unremarkable (noncontributory) Review of Systems - Review of Systems Constitutional: denies: Chills, Fever Eyes: reports: Other (wears glasses). denies: Recent Change in Vision HENT: reports: Other (recent cold - had cough). denies: Difficult Swallowing, Throat Pain Neck: denies: Decreased ROM, Tenderness Cardiovascular: denies: Chest Pain, Palpitations Respiratory: reports: Cough (had recently, better now). denies: SOB Gastrointestinal: reports: Abdominal Pain (with hpi). denies: Constipation, Diarrhea, Nausea, Vomiting Genitourinary: denies: Burning, Dysuria Musculoskeletal: reports: Muscle Pain (left abdomen). denies: Back Pain Integumentary: reports: Lump (left abdominal wall palpable). denies: Change in Color, Rash Neurological: denies: Dizziness, Headache Physical Exam Vital Signs: Vital Signs Temperature 99.1 F 12/15/18 10:31 Pulse Rate 84 12/15/18 10:31 Respiratory Rate 18 12/15/18 10:31 Blood Pressure 133/73 12/15/18 10:31 O2 Sat by Pulse Oximetry (%) 99 12/15/18 00:17 Constitutional: Yes: Well Nourished, No Distress, Calm Eyes: Yes: Conjunctiva Clear, EOM Intact, Other (glasses) HENT: Yes: Atraumatic, Normocephalic Neck: Yes: Supple, Trachea Midline Cardiovascular: Yes: Regular Rate and Rhythm Respiratory: Yes: Regular, CTA Bilaterally Gastrointestinal: Yes: Normal Bowel Sounds, Soft, Hernia (small umbilical, reducible, fat only), Tenderness (left side over rectus muscle), Other (small firm area palpable over mid-left rectus sheath). No: Tenderness, Rebound ...Rectal Exam: Yes: Deferred Renal/: No: CVA Tenderness - Left, CVA Tenderness - Right Musculoskeletal: No: Back Pain, Joint Swelling Extremities: No: Cool, Cyanosis Edema: No Peripheral Pulses WNL: Yes Integumentary: Yes: Other (healed laparoscopic scars from vinnie; small healed scar over point of maximal tenderness left mid-medial abdomen, no open wound ( possibly from kidney surgery)). No: Bruising (no bruise left abdomen), Jaundice , Rash Neurological: Yes: Alert, Oriented Psychiatric: Yes: Alert, Oriented Labs: CBC, BMP 12/15/18 08:14 12/15/18 08:14 CMP Sodium 140 mmol/L (136-145) 12/15/18 08:14 Potassium 3.8 mmol/L (3.5-5.1) 12/15/18 08:14 Chloride 108 mmol/L (98-107) H 12/15/18 08:14 Carbon Dioxide 25 mmol/L (21-32) 12/15/18 08:14 Anion Gap 7 MMOL/L (8-16) L 12/15/18 08:14 BUN 17.6 mg/dL (7-18) 12/15/18 08:14 Creatinine 1.4 mg/dL (0.55-1.3) H 12/15/18 08:14 Est GFR (CKD-EPI)AfAm 57.76 12/15/18 08:14 Est GFR (CKD-EPI)NonAf 49.84 12/15/18 08:14 Random Glucose 85 mg/dL (74-106) 12/15/18 08:14 Lactic Acid 0.6 mmol/L (0.4-2.0) 12/14/18 12:50 Calcium 8.7 mg/dL (8.5-10.1) 12/15/18 08:14 Phosphorus 4.1 mg/dL (2.5-4.9) 12/15/18 08:14 Magnesium 1.6 mg/dL (1.8-2.4) L 12/15/18 08:14 Total Bilirubin 0.7 mg/dL (0.2-1) 12/15/18 08:14 AST 18 U/L (15-37) 12/15/18 08:14 ALT 16 U/L (13-61) 12/15/18 08:14 Alkaline Phosphatase 104 U/L (45-117) 12/15/18 08:14 Total Protein 6.7 g/dl (6.4-8.2) 12/15/18 08:14 Albumin 3.0 g/dl (3.4-5.0) L 12/15/18 08:14 Lipase 154 U/L (73-393) 12/15/18 08:14 TSH 0.99 uIU/ml (0.358-3.74) 12/15/18 08:14 INR, PTT INR 1.05 (0.83-1.09) 12/14/18 12:53 Imaging - Results Cat Scan: Report Reviewed, Image Reviewed (images reviewed - hematoma in left rectus sheath, heterogeneous, no acute intraabdominal findings) Problem List - Problems (1) Rectus sheath hematoma Assessment/Plan: left side could be secondary to coughing with recent cold, pt denies direct trauma appears stable pain improving some no intervention indicated likely to take weeks to months to fully resolve avoid NSAIDs - no ASA or ibuprofen or naproxen avoid heparin tylenol ok for pain prn warm compresses 15 mins/time, every few hrs throughout day for a while encourage good pulmonary toilet - to use IS at home and hold/splint abdomen for coughing f/u with PMD regularly to follow progress if he resumes injections that must be in abdominal skin, he is to use right side only for a few months discussed with Lorraine Rasmussen NP Code(s): S30.1XXA - CONTUSION OF ABDOMINAL WALL, INITIAL ENCOUNTER Qualifiers: Encounter type: initial encounter Qualified Code(s): S30.1XXA - Contusion of abdominal wall, initial encounter (2) Abdominal wall pain in left upper quadrant Code(s): R10.12 - LEFT UPPER QUADRANT PAIN (3) CKD (chronic kidney disease) Code(s): N18.9 - CHRONIC KIDNEY DISEASE, UNSPECIFIED Qualifiers: Chronic kidney disease stage: stage 3 (moderate) Qualified Code(s): N18.3 - Chronic kidney disease, stage 3 (moderate) (4) H/O prostate cancer Code(s): Z85.46 - PERSONAL HISTORY OF MALIGNANT NEOPLASM OF PROSTATE (5) H/O renal cell cancer Code(s): Z85.528 - PERSONAL HISTORY OF OTHER MALIGNANT NEOPLASM OF KIDNEY (6) HTN (hypertension) Code(s): I10 - ESSENTIAL (PRIMARY) HYPERTENSION Qualifiers: Hypertension type: essential hypertension Qualified Code(s): I10 - Essential (primary) hypertension (7) Hyperlipidemia Code(s): E78.5 - HYPERLIPIDEMIA, UNSPECIFIED Qualifiers: Hyperlipidemia type: unspecified Qualified Code(s): E78.5 - Hyperlipidemia , unspecified
[2018-12-15 18:38] VITALS: BP 139/78
[2018-12-15 18:40] VITALS: PULSE 101; TEMP 99.7
== END 2018-12-15 18:44 | disposition home or self-care (01) | DRG 605 ==
LOC: JER 10:21 → JERBED 22:09 → J6S 12-15 01:25
PROVIDERS: ADMIT Family Medicine; ATTEND Family Medicine
DX: S30.1XXA Contusion of abdominal wall, initial encounter (principal); M79.81 Nontraumatic hematoma of soft tissue; E78.5 Hyperlipidemia, unspecified; I12.9 Hypertensive chronic kidney disease with stage 1 through stage 4 chronic kidney disease, or unspecified chronic kidney disease; N18.3 Chronic kidney disease, stage 3 (moderate); K80.20 Calculus of gallbladder without cholecystitis without obstruction; M17.11 Unilateral primary osteoarthritis, right knee; R16.1 Splenomegaly, not elsewhere classified; R79.89 Other specified abnormal findings of blood chemistry; Z85.528 Personal history of other malignant neoplasm of kidney; Z88.0 Allergy status to penicillin; X58.XXXA Exposure to other specified factors, initial encounter; Y92.098 Other place in other non-institutional residence as the place of occurrence of the external cause; Z85.46 Personal history of malignant neoplasm of prostate; Z87.442 Personal history of urinary calculi
CPT/HCPCS: 36415; 71045-TC-FY; 74176-TC; 74177-TC; 76705-TC; 80053; 83605; 83690; 83735; 84100; 84436; 84443; 85025; 85610; 85730; 86850; 86900; 86901; 93005; 93010; 94010; 99284-25; J0131; J1644

== ENCOUNTER 2019-12-24 13:59 | Emergency (ER) | payer OTHER, BC ==
[2019-12-24 14:35] VITALS: PULSE 82; BMI 23.7
--- NOTE | 2019-12-24 15:17 | PDOC ---
History of Present Illness - General Chief Complaint: Pain, Acute Stated Complaint: PROCEDURE COMPLICATION Time Seen by Provider: 12/24/19 15:17 - History of Present Illness Initial Comments: 74 M with Hx of HTN , prostate CA referred to the ED by Dr. Galileo Mcclelland s/p angiogram for CT abdomen/pelvis. Patient was at his office for angiogram for legs claudications. Dr. Nash went from the right femoral to the left side to fix the problem. Patient was transferred here by ambulance in a stable condition. He is on aspirin, and plavix. He denies chest pain, SOB, fever, chill, N/V/ constipation, leg stiffness, change of sensation. He endorsed abdominal pain. PMH: HTN, prostate cancer PSH: knee surgery, cholecystectomy, colonscopy Med: home med. SS: +smoking, alcohol, denies drug SS: jennifer inhibitor, penicillins. ROS GENERAL/CONSTITUTIONAL: No fever or chills. No weakness. HEAD, EYES, EARS, NOSE AND THROAT: No change in vision. No ear pain or discharge. No sore throat. CARDIOVASCULAR: No chest pain or shortness of breath RESPIRATORY: No cough, wheezing, or hemoptysis. GASTROINTESTINAL: No nausea, vomiting, diarrhea or constipation. + abdominal pain. GENITOURINARY: No dysuria, frequency, or change in urination. MUSCULOSKELETAL: No joint or muscle swelling or pain. No neck or back pain. SKIN: No rash NEUROLOGIC: No headache, vertigo, loss of consciousness, or change in strength/sensation. ENDOCRINE: No increased thirst. No abnormal weight change HEMATOLOGIC/LYMPHATIC: No anemia, easy bleeding, or history of blood clots. ALLERGIC/IMMUNOLOGIC: No hives or skin allergy. PE GENERAL: Awake, alert, and fully oriented, in no acute distress HEAD: No signs of trauma, normocephalic, atraumatic EYES: PERRLA, EOMI, sclera anicteric, conjunctiva clear ENT: Auricles normal inspection, hearing grossly normal, nares patent, oropharynx clear without exudates. Moist mucosa NECK: Normal ROM, supple, no lymphadenopathy, JVD, or masses LUNGS: No distress, speaks full sentences, clear to auscultation bilaterally HEART: Regular rate and rhythm, normal S1 and S2, no murmurs, rubs or gallops, peripheral pulses normal and equal bilaterally. ABDOMEN: Soft normoactive bowel sounds. , tender, guarding, rebound on suprapubic region. No masses EXTREMITIES : Normal inspection, Normal range of motion, no edema. No clubbing or cyanosis. right femoral bandage from access NEUROLOGICAL: Cranial nerves II through XII grossly intact. Normal speech, normal gait, no focal sensorimotor deficits SKIN: Warm, Dry, normal turgor, no rashes or lesions noted Past History - Medical History Allergies/Adverse Reactions: Allergies Allergy/AdvReac Type Severity Reaction Status Date / Time JENNIFER Inhibitors Allergy Verified 12/14/18 10:26 Penicillins Allergy Verified 12/14/18 10:26 Home Medications: Ambulatory Orders Amlodipine Besylate [Norvasc -] 5 mg PO DAILY #30 tablet 05/01/17 Metoprolol Succinate 25 mg PO DAILY 12/14/18 Acetaminophen [Tylenol .Regular Strength -] 650 mg PO Q6H PRN tablet 12/15/18 Oxycodone HCl/Acetaminophen [Percocet 5-325 mg Tablet] 1 tab PO Q6H PRN #12 tablet MDD 4 12/24/19 Cancer: Yes (PROSTATE s/p radiation) COPD: No GI Disorders: Yes (gallstones) Disorders: Yes (renal calculi) HTN: Yes Hypercholesterolemia: Yes Kidney Stones: Yes - Surgical History Cholecystectomy: Yes Orthopedic Surgery: Yes (RT KNEE REPLACEMENT AT 2007) - Immunization History Immunization Up to Date: Yes - Psycho-Social/Smoking History Smoking History: Never smoked Have you smoked in the past 12 months: Yes Number of Cigarettes Smoked Daily: 10 If you are a former smoker, when did you quit?: 5YRS AGO 'Breaking Loose' booklet given: 12/15/18 - Substance Abuse Hx (Audit-C & DAST Scrn) How often the patient has a drink containing alcohol: Never Score: In Men: 4 or > Positive; In Women: 3 or > Positive: 0 Screen Result (Pos requires Nsg. Audit-10AR): Negative In the last yr the pt used illegal drug/Rx for NonMed reason: No Score: Yes response is considered Positive: 0 Screen Result (Positive result requires Nsg. DAST-10): Negative *Physical Exam - Vital Signs Last Vital Signs Temp Pulse Resp BP Pulse Ox 97.0 F L 82 24 H 134/77 24 L 12/24/19 14:23 12/24/19 14:23 12/24/19 14:23 12/24/19 14:23 12/24/19 14:23 ED Treatment Course - LABORATORY CBC & Chemistry Diagram: 12/24/19 16:45 12/24/19 16:45 Medical Decision Making - Medical Decision Making 74 M with hx of HTN, prostate CA BIBA from a referral from Dr. Carlisle for a abdominal pelvis CAT s/p angiogram. CT scan of abdomen/pelvis no contrast CBC, CMP Dr. Cunningham visited the patient, reassessed him, read the CT scan, and looked at the lab. His hemoglobin is 10s, (baseline 11s). CT scan reading revealed small bleed on the artery; however, Dr. Humphrey is comfortable with him going home if pain is controlled with opioid/percoset, and follow up with his office for further problems. 12/24/19 19:07 CT scan showed a hematoma. Patient is discharged with Percoset and given caution return instruction. Discharge - Discharge Information Problems reviewed: Yes Clinical Impression/Diagnosis: Hematoma Condition: Good Disposition: HOME - Admission No - Additional Discharge Information Prescriptions: Oxycodone HCl/Acetaminophen [Percocet 5-325 mg Tablet] 1 tab PO Q6H PRN #12 tablet MDD 4 PRN Reason: Pain - Follow up/Referral Referrals: Nick Fofana MD [Primary Care Provider] - - Patient Discharge Instructions Additional Instructions: You are here for the CT scan it revealed a hematoma . Dr. Venegas saw you and revealed the cat scan and the lab. You are safe to go home. If you are experienced painful abdominal pain, please come back to the ED or call Dr. Nash You are prescribed pain meds, please use them with caution. You will have pain in the belly for the next 7 days. It is normal but if it is severe, please come back to the ED. - Post Discharge Activity
--- NOTE | 2019-12-24 16:32 | PDOC ---
Documentation entered by Kulwant Girard SCRIBE, acting as scribe for Devin Del Valle MD. Devin Del Valle MD: This documentation has been prepared by the Shaji guzman Xhesika, SCRIBE, under my direction and personally reviewed by me in its entirety. I confirm that the documentation accurately reflects all work, treatment, procedures, and medical decision making performed by me. Attending Attestation - Resident Resident Name: SholaArvind - ED Attending Attestation I have performed the following: I have examined & evaluated the patient, The case was reviewed & discussed with the resident, I agree w/resident's findings & plan, Exceptions are as noted - HPI HPI: 12/24/19 15:27 The patient is a 74 year old male with a past medical history of prostate cancer s/p radiation here today from Dr. Owusu office for post-op complication. Patient denies headache, lightheadedness. Denies fever, chills. Denies chest pain, shortness of breath. Denies nausea, vomiting, diarrhea. Allergies: JENNIFER inhibitors, penicillins Surgical history: Cholecystectomy PCP: Nick Fofana - Physicial Exam PE: 12/24/19 16:32 Vitals: Triage Vital signs reviewed General Appearance: No acute distress, well nourished well developed, Head: Atraumatic, Eyes: Pupils equal reactive round, extraocular movement intact Cardiac: Regular rate and rhythym, no murmurs, no rubs, no gallops, Lungs: Clear to auscultation bilateral, good air movement bilaterally, Abdomen: Diffuse lower abdominal tenderness to palpation Extremities: Full range of motion to all extremities, no cyanosis, clubbing, or edema Skin: Warm and dry, no rashes or lesions, no rash, no petechiae Psych: Normal mood, normal affect - Medical Decision Making 12/25/19 19:19 Patient sent to ED to rule out retroperitoneal bleed status post angiogram CAT scan ordered labs pending signed out to Dr. Molina for further management Will need to discuss with after imaging and labs Discharge - Discharge Information Problems reviewed: Yes Clinical Impression/Diagnosis: Hematoma Condition: Good Disposition: HOME - Additional Discharge Information Prescriptions: Oxycodone HCl/Acetaminophen [Percocet 5-325 mg Tablet] 1 tab PO Q6H PRN #12 tablet MDD 4 PRN Reason: Pain - Follow up/Referral Referrals: Nick Fofana MD [Primary Care Provider] - - Patient Discharge Instructions Additional Instructions: You are here for the CT scan it revealed a hematoma . Dr. Venegas saw you and revealed the cat scan and the lab. You are safe to go home. If you are experienced painful abdominal pain, please come back to the ED or call Dr. Nash You are prescribed pain meds, please use them with caution. You will have pain in the belly for the next 7 days. It is normal but if it is severe, please come back to the ED. - Post Discharge Activity
[2019-12-24 17:07] LABS: BASO % 0.6 % (0-2.0); EOS % 2.1 % (0-4.5); HEMATOCRIT 32.4 % (35.4-49); HEMOGLOBIN 10.5 GM/dL (11.7-16.9); LYMPH % 6.7 % (8-40); MCH 27.5 pg (25.7-33.7); MCHC 32.5 g/dl (32.0-35.9); MEAN CELL VOLUME 84.8 fl (80-96); MEAN PLT VOLUME 7.3 fl (7.5-11.1); MONO % 8.4 % (3.8-10.2); NEUT % 82.2 % (42.8-82.8); PLATELET COUNT 247 K/MM3 (134-434); RBC 3.82 M/mm3 (4.00-5.60); RDW 17.3 % (11.9-15.9); WHITE BLOOD COUNT 6.9 K/mm3 (4.0-10.0)
[2019-12-24 17:18] LABS: INR 0.92 (0.83-1.09); PROTHROMBIN TIME (PATIENT) 10.8 SEC (9.7-13.0)
[2019-12-24 17:21] LABS: ACTIVATED PTT 26.2 SECONDS (25.2-36.5)
[2019-12-24 17:45] LABS: ALBUMIN 3.5 g/dl (3.4-5.0); BILIRUBIN,TOTAL 0.5 mg/dL (0.2-1); BLOOD UREA NITROGEN 23.7 mg/dL (7-18); CALCIUM 9.4 mg/dL (8.5-10.1); CREATININE 1.5 mg/dL (0.55-1.3); POTASSIUM 4.6 mmol/L (3.5-5.1); TOT PROT 7.4 g/dl (6.4-8.2)
[2019-12-24 19:17] VITALS: BP 132/72; TEMP 98.1
== END 2019-12-24 19:00 | disposition home or self-care (01) ==
LOC: JER 13:59
DX: M79.81 Nontraumatic hematoma of soft tissue (principal)
CPT/HCPCS: 36415; 74176-TC; 80053; 85025; 85610; 85730; 86850; 86900; 86901; 99285-25

== ENCOUNTER 2019-12-28 14:19 | Inpatient (IN) | payer OTHER, BC ==
--- NOTE | 2019-12-28 14:31 | PDOC ---
Rapid Medical Evaluation Time Seen by Provider: 12/28/19 14:27 Medical Evaluation: Allergies Allergy/AdvReac Type Severity Reaction Status Date / Time JENNIFER Inhibitors Allergy Verified 12/14/18 10:26 Penicillins Allergy Verified 12/14/18 10:26 12/28/19 14:28 Pt presents for evaluation of body aches since . Recently had an angiogram of the L leg. Exam: NAD, ambulatory, speaking in full sentences Orders: labs, EKG Pt to proceed to the ER for further evaluation Discharge Disposition - Diagnosis Muscle ache - Referrals - Patient Instructions - Post Discharge Activity
--- NOTE | 2019-12-28 15:30 | PDOC ---
History of Present Illness - General Chief Complaint: Pain Stated Complaint: BODY ACHES Time Seen by Provider: 12/28/19 14:27 History Source: Patient Exam Limitations: No Limitations - History of Present Illness Initial Comments: 12/28/19 15:31 74-year-old male presents to ED with complaints of generalized body aching/cramping greater in the abdominal region. Patient states had an angiogram done on and was rerouted to the hospital later on that day secondary to a large bruise over his abdomen. Patient had a complete work-up which the CT noted extraperitoneal hematoma measuring 13 x 14 x 1.5 cm. Patient states since then has had no change in bowel, fever, abdominal distention, nausea, or dizziness. Patient states is currently on no statins and denies any recent change in medications. Patient has no complaints of chest pain or shortness of breath at this time Is this a multiple visit Asthma Patient?: No Timing/Duration: constant, getting worse Severity: moderate Associated Symptoms: reports: other Past History - Travel History Traveled outside of the country in the last 30 days: No Close contact w/someone who was outside of country & ill: No - Medical History Allergies/Adverse Reactions: Allergies Allergy/AdvReac Type Severity Reaction Status Date / Time JENNIFER Inhibitors Allergy Verified 12/14/18 10:26 Penicillins Allergy Verified 12/14/18 10:26 egg AdvReac Verified 12/28/19 14:28 Home Medications: Ambulatory Orders Amlodipine Besylate [Norvasc -] 5 mg PO DAILY #30 tablet 05/01/17 Metoprolol Succinate 25 mg PO DAILY 12/14/18 Acetaminophen [Tylenol .Regular Strength -] 650 mg PO Q6H PRN tablet 12/15/18 Oxycodone HCl/Acetaminophen [Percocet 5-325 mg Tablet] 1 tab PO Q6H PRN #12 tablet MDD 4 12/24/19 Cancer: Yes (PROSTATE s/p radiation) COPD: No GI Disorders: Yes (gallstones) Disorders: Yes (renal calculi) HTN: Yes Hypercholesterolemia: Yes Kidney Stones: Yes - Surgical History Cholecystectomy: Yes Orthopedic Surgery: Yes (RT KNEE REPLACEMENT AT 2007) - Immunization History Immunization Up to Date: Yes - Psycho-Social/Smoking History Patient Lives Alone: No Lives with/in: spouse/SO Smoking History: Never smoked Have you smoked in the past 12 months: Yes Number of Cigarettes Smoked Daily: 10 If you are a former smoker, when did you quit?: 5YRS AGO Information on smoking cessation initiated: No 'Breaking Loose' booklet given: 12/15/18 - Substance Abuse Hx (Audit-C & DAST Scrn) How often the patient has a drink containing alcohol: Never Score: In Men: 4 or > Positive; In Women: 3 or > Positive: 0 Screen Result (Pos requires Nsg. Audit-10AR): Negative In the last yr the pt used illegal drug/Rx for NonMed reason: No Score: Yes response is considered Positive: 0 Screen Result (Positive result requires Nsg. DAST-10): Negative Review of Systems - Review of Systems Able to Perform ROS?: No Is the patient limited Albanian proficient: No Constitutional: No: Symptoms Reported HEENTM: No: Symptoms Reported Respiratory: No: Symptoms reported Cardiac (ROS): No: Symptoms Reported ABD/GI: No: Symptoms Reported : No: Symptoms Reported Musculoskeletal: Yes: Joint Pain, Muscle Pain Integumentary: No: Symptoms Reported Neurological: No: Symptoms reported Hematologic/Lymphatic: No: Symptoms Reported *Physical Exam - Vital Signs Last Vital Signs Temp Pulse Resp BP Pulse Ox 97.8 F 93 H 17 107/67 98 12/28/19 14:28 12/28/19 14:28 12/28/19 14:28 12/28/19 14:28 12/28/19 14:28 - Physical Exam General Appearance: Yes: Nourished, Appropriately Dressed. No: Apparent Distress HEENT: negative: Pale Conjunctivae Neck: positive: Supple. negative: Tender, Decreased range of motion Respiratory/Chest: positive: Lungs Clear, Normal Breath Sounds. negative: Respiratory Distress, Accessory Muscle Use Cardiovascular: positive: Regular Rhythm, Regular Rate. negative: Murmur Comments:: 12/28/19 15:41 2+ patellar ..unable to palpate pedal pulses Gastrointestinal/Abdominal: positive: Soft, Tenderness (Upper periumbilical skin discoloration no palpable mass bowel sounds present x4. ) Musculoskeletal: negative: CVA Tenderness Extremity: positive: Normal Inspection, Normal Range of Motion Integumentary: positive: Normal Color, Warm, Moist Neurologic: positive: Motor Strength 5/5 (ambulatory) Heart Score/ECG Review - ECG Intrepretation Rhythm: Regular Rhythm (Rate 85. Normal sinus rhythm. No ST elevation or depression. Intervals are regular.) ED Treatment Course - LABORATORY CBC & Chemistry Diagram: 12/28/19 15:40 12/28/19 15:40 Medical Decision Making - Medical Decision Making 12/28/19 15:49 Chief complaint: Patient here with generalized muscle cramping greater in the knees and elbows along with his upper abdominal region. Patient states had angiogram done on sustained the extraperitoneal hematoma and then with current complaints since last night. Exam: Patient with otherwise normal PE without noted swelling bruising decreased temperature, redness or limited mobility. upper abdominal tenderness bowel sounds present x4 no distention no palpable mass. Plan: Labs, EKG will consider imaging once labs are reviewed. 12/28/19 16:46 Laboratory Tests 12/28/19 15:40 Creatinine 2.7 H Est GFR (CKD-EPI)AfAm 25.93 Est GFR (CKD-EPI)NonAf 22.37 Total Bilirubin 0.6 Troponin I < 0.02 TSH 2.55 D 12/28/19 16:47 Laboratory Tests 12/28/19 12/28/19 12/28/19 15:40 15:40 15:40 WBC 10.2 H Hgb 9.8 L Hct 30.0 L RDW 17.5 H MPV 7.4 L Absolute Neuts (auto) 8.6 H Neutrophils % 84.4 H Lymphocytes % 5.8 L PT with INR 12.00 INR 1.02 Sodium 138 Potassium 4.4 Chloride 105 Carbon Dioxide 25 Anion Gap 8 TSH 2.55 D pt feeling better with ivf and mso4 12/28/19 17:07 Laboratory Tests 12/28/19 15:40 Creatine Kinase Index 1.0 CK-MB (CK-2) 2.7 12/28/19 17:35 micro block sent. En Castro is the admitting physician Discharge - Discharge Information Problems reviewed: Yes Clinical Impression/Diagnosis: Elevated serum creatinine - Admission Yes - Follow up/Referral Referrals: Nick Fofana MD [Primary Care Provider] - - Patient Discharge Instructions - Post Discharge Activity
[2019-12-28 15:54] LABS: BASO % 0.5 % (0-2.0); EOS % 0.9 % (0-4.5); HEMOGLOBIN 9.8 GM/dL (11.7-16.9); LYMPH % 5.8 % (8-40); MCHC 32.9 g/dl (32.0-35.9); MEAN CELL VOLUME 85.3 fl (80-96); MEAN PLT VOLUME 7.4 fl (7.5-11.1); MONO % 8.4 % (3.8-10.2); NEUT % 84.4 % (42.8-82.8); PLATELET COUNT 276 K/MM3 (134-434); RBC 3.51 M/mm3 (4.00-5.60); RDW 17.5 % (11.9-15.9); WHITE BLOOD COUNT 10.2 K/mm3 (4.0-10.0)
[2019-12-28 16:10] LABS: INR 1.02 (0.83-1.09)
[2019-12-28 16:24] LABS: ALBUMIN 3.6 g/dl (3.4-5.0); ALK PHOS 114 U/L (45-117); ANION GAP 8 MMOL/L (8-16); BLOOD UREA NITROGEN 23.7 mg/dL (7-18); CALCIUM 9.4 mg/dL (8.5-10.1); CHLORIDE 105 mmol/L (98-107); CO2 25 mmol/L (21-32); GLUCOSE,RANDOM 122 mg/dL (74-106); MAGNESIUM 2.2 mg/dL (1.8-2.4); PHOSPHOROUS 4.1 mg/dL (2.5-4.9); POTASSIUM 4.4 mmol/L (3.5-5.1); SGOT/AST 26 U/L (15-37); SGPT/ALT 22 U/L (13-61); SODIUM 138 mmol/L (136-145); TOT PROT 7.7 g/dl (6.4-8.2)
[2019-12-28] MEDS ORDERED: SODIUM CHLORIDE 1,000 ML IV STA (16:29)
[2019-12-28 16:30] LABS: BILIRUBIN,TOTAL 0.6 mg/dL (0.2-1); CREATININE 2.7 mg/dL (0.55-1.3)
[2019-12-28] MEDS ORDERED: morphine CARPU-JECT 2 MG/1 ML DISP.SYRIN IVPUSH ONE (16:30)
[2019-12-28] MEDS ORDERED: morphine SULFATE 4 MG/ML VIAL ONE (16:35)
[2019-12-28] MEDS ORDERED: ACETAMINOPHEN 1000 MG/100 ML VIAL (NON FORMULARY) IVPB PRN (20:37)
[2019-12-28] MEDS ORDERED: POTASSIUM CHLORIDE TABS 20 MEQ TABLET.ER (FP) PO ONE (20:37)
[2019-12-28] MEDS ORDERED: ACETAMINOPHEN INJECTION 100 ML IVPB ONE (21:21)
--- NOTE | 2019-12-28 21:24 | HP ---
CHIEF COMPLAINT:Patient here with generalized muscle cramping greater in the knees and elbows along with his upper abdominal region. He reports he had a Repatha injection yesterday. PCP:Dr. Garcia HISTORY OF PRESENT ILLNESS: Mr. Kelly is a 74-year-old male with a past medical history of prostate cancer with radiation, partial nephrectomy 10 years ago, (last creatinine on 12/23 1.5), hypertension,hyperlipidemia, and kidney stones who presents to ED with complaints of generalized body aching/muscle spasms and cramping in the abdominal region. Patient states he had an angiogram done this past and he was rerouted to the hospital later on that day secondary to a large bruise over his abdomen. Patient had a complete work-up which the CT noted extraperitoneal hematoma measuring 13 x 14 x 1.5 cm. He was seen by Vascular- Dr. Owusu. Patient states he is currently not taking statins and he had a Repatha injection yesterday that was prescribed by his Technical Agronomist. Patient has no complaints of fever, chills, cough, chest pain or shortness of breath. ER course notable for: (1)Acute Kidney Injury- BUN 23.7/ creatinine 2.7, (creatinine 1.5 on 12/23) (2)Right groin hematoma/ecchymosis, tenderness- hgb/hct 9.8/30<10.5/32.4 on 12/23 (3)Leukocytosis - WBC 10.2 He received 1 liter of IVF and a dose IV morphine 4mg which he reported improved his abdominal pain. Recent Travel: no PAST MEDICAL HISTORY: prostate cancer with radiation hypertension hyperlipidemia PAST SURGICAL HISTORY: right knee replacement in 2007 partial nephrectomy 10 years ago cholecystectomy Social History: Smoking:no Alcohol:no Drugs: no Family History: noncontributory Allergies JENNIFER Inhibitors Allergy (Verified 12/14/18 10:26 Penicillins Allergy (Verified 12/14/18 10:2 egg Adverse Reaction (Verified 12/28/19 14:28) HOME MEDICATIONS: Home Medications Medication Instructions Recorded Amlodipine Besylate [Norvasc -] 5 mg PO DAILY #30 tablet 05/01/17 Metoprolol Succinate 25 mg PO DAILY 12/14/18 Acetaminophen [Tylenol .Regular 650 mg PO Q6H PRN tablet 12/15/18 Strength -] Oxycodone HCl/Acetaminophen 1 tab PO Q6H PRN #12 tablet MDD 4 12/24/19 [Percocet 5-325 mg Tablet] REVIEW OF SYSTEMS CONSTITUTIONAL: Absent: fever, chills, diaphoresis, generalized body aches , malaise, loss of appetite, weight change HEENT: Absent: rhinorrhea, nasal congestion, throat pain, throat swelling, difficulty swallowing, mouth swelling, ear pain, eye pain, visual changes CARDIOVASCULAR: Absent: chest pain, syncope, palpitations, irregular heart rate, lightheadedness, peripheral edema RESPIRATORY: Absent: cough, shortness of breath, dyspnea with exertion, orthopnea, wheezing, stridor, hemoptysis GASTROINTESTINAL: Absent: abdominal pain, abdominal distension, nausea, vomiting, diarrhea, constipation, melena, hematochezia GENITOURINARY: Absent: dysuria, frequency, urgency, hesitancy, hematuria, flank pain, genital pain MUSCULOSKELETAL: Absent: myalgia, arthralgia, joint swelling, back pain, neck pain, muscle spasms SKIN: Absent: rash, itching, pallor, right groin ecchymosis/hematoma HEMATOLOGIC/IMMUNOLOGIC: Absent: easy bleeding, easy bruising, lymphadenopathy, frequent infections ENDOCRINE: Absent: unexplained weight gain, unexplained weight loss, heat intolerance, cold intolerance NEUROLOGIC: Absent: headache, focal weakness or paresthesias, dizziness, unsteady gait, seizure, mental status changes, bladder or bowel incontinence PSYCHIATRIC: Absent: anxiety, depression, suicidal or homicidal ideation, hallucinations. PHYSICAL EXAMINATION Vital Signs - 24 hr 12/28/19 12/28/19 12/28/19 14:28 16:11 16:28 Temperature 97.8 F Pulse Rate 93 H Pulse Rate [ 85 82 Left Radial] Respiratory 17 20 20 Rate Blood Pressure 107/67 Blood Pressure 119/67 113/69 [Left Arm] O2 Sat by Pulse 98 98 100 Oximetry (%) 12/28/19 16:44 Temperature Pulse Rate Pulse Rate [ Left Radial] Respiratory Rate Blood Pressure Blood Pressure [Left Arm] O2 Sat by Pulse 100 Oximetry (%) General no acute distress Vital signs reviewed afebrile Neuro no focal deficits Neck no JVD Lungs CTA nonlabored breathing effort no use of accessory muscles no rales no wheezing Heart s1s2 rate regular Abdomen nontender nondisteded Extremities warm to touch no pitting edema no cyanosis pedal pulses palpable Skin right groin ecchymosis and hematoma + tenderness Laboratory Results - last 24 hr 12/28/19 12/28/19 12/28/19 15:40 15:40 15:40 WBC 10.2 H RBC 3.51 L Hgb 9.8 L Hct 30.0 L MCV 85.3 MCH 28.0 MCHC 32.9 RDW 17.5 H Plt Count 276 MPV 7.4 L Absolute Neuts (auto) 8.6 H Neutrophils % 84.4 H Lymphocytes % 5.8 L Monocytes % 8.4 Eosinophils % 0.9 Basophils % 0.5 Nucleated RBC % 0 PT with INR 12.00 INR 1.02 Sodium 138 Potassium 4.4 Chloride 105 Carbon Dioxide 25 Anion Gap 8 BUN 23.7 H Creatinine 2.7 H Est GFR (CKD-EPI)AfAm 25.93 Est GFR (CKD-EPI)NonAf 22.37 Random Glucose 122 H Calcium 9.4 Phosphorus 4.1 Magnesium 2.2 Total Bilirubin 0.6 AST 26 ALT 22 Alkaline Phosphatase 114 Creatine Kinase 264 Creatine Kinase Index 1.0 CK-MB (CK-2) 2.7 Troponin I < 0.02 Total Protein 7.7 Albumin 3.6 TSH 2.55 D ASSESSMENT/PLAN: In summary this is a 74-year-old male with a past medical history significant for prostate cancer treated with radiation, partial nephrectomy 10 years ago with a normal creatinine at baseline, last creatinine on 12/23 1.5), hypertension, hyperlipidemia, and kidney stones who presented with symptoms of generalized body aching/muscle spasms and cramping in the abdominal region. Patient had a recent angiogram done this past and he was rerouted to the hospital later on that day secondary to a large bruise over his abdomen and with a complete work-up which the CT noted extra peritoneal hematoma measuring 13 x 14 x 1.5 cm. He was seen by Vascular- Dr. Owusu at that time. Upon evaluation he was found to have acute kidney injury. He is being admitted for further medical management and evaluation by Nephrology amd Vascular. #1 acute kidney injury likely IV contrast induced hx partial nephrectomy creatinine 2.7, (at baseline was normal, last creatinine 1.5 on 12/23) received 1 liter NS c/w IVF NS @100cc/hr for hydration , encouraged increased oral intake of fluids repeat BMP in am monitor for signs of fluid overload and strict I&0's Nephrology consulted- Dr. López avoid NSAID's, jennifer/arbs and nephrotoxic drugs #2 right groin hematoma symptomatic with tenderness, afebrile, WBC 10.2 hgb/hct with slight drop to 9.8/30 from 10.5/32.4 on 12/23 Vascular Consulted- Dr. Owusu c/w pain control,one dose of IV Ofirmex ordered #3 hypertension normotensive c/w amlodipine and metoprolol #4 hyperlipidemia has muscle cramps/spasms not on statin therapy received a dose of Repatha yesterday- new muscles spasms ? side effect to drug electrolytes/TSH, CPK level reviewed and WNL #5 R/O COVID +fever, no hypoxia follow up on COVID nasal swab sent 12/27 maintain droplet/contact isolation precautions maintain 02 sat >90% DVT Prophylaxis SCD's avoid systemic anticoagulation in the setting of hematoma FEN IVF NS @100cc/hr monitor BMP daily, replete electrolytes as needed low sodium diet Visit type - Medication Review Med list reviewed for High Risk Meds patients 65 and older: Yes - Emergency Visit Emergency Visit: Yes ED Registration Date: 12/28/19 Care time: The patient presented to the Emergency Department on the above date and was hospitalized for further evaluation of their emergent condition. - New Patient This patient is new to me today: Yes Date on this admission: 12/29/19 - Critical Care Critical Care patient: No
[2019-12-28] MEDS: SODIUM CHLORIDE 1,000 ML IV SCH (21:27)
[2019-12-28 23:11] VITALS: BMI 27.8
--- NOTE | 2019-12-29 08:14 | PN ---
Progress Note, Physician - Current Medication List Current Medications: Active Medications Sodium Chloride (Normal Saline -) 1,000 mls @ 100 mls/hr IV ASDIR GERALD Last Admin: 12/28/19 21:27 Dose: 100 mls/hr Documented by: - Objective Vital Signs: Vital Signs Temperature 98.5 F 12/29/19 06:06 Pulse Rate 93 H 12/29/19 06:06 Respiratory Rate 20 12/29/19 06:06 Blood Pressure 149/83 12/29/19 06:06 O2 Sat by Pulse Oximetry (%) 96 12/29/19 06:21 Cardiovascular: Yes: Regular Rate and Rhythm Respiratory: Yes: Regular, CTA Bilaterally Gastrointestinal: Yes: Normal Bowel Sounds, Soft Labs: CBC, BMP 12/28/19 15:40 12/28/19 15:40 INR, PTT INR 1.02 (0.83-1.09) 12/28/19 15:40 Problem List - Problems (1) Acute kidney failure Assessment/Plan: maybe related to contrast Hydrate follow labs renal consult Code(s): N17.9 - ACUTE KIDNEY FAILURE, UNSPECIFIED Qualifiers: Acute renal failure type: unspecified Qualified Code(s): N17.9 - Acute kidney failure, unspecified (2) CKD (chronic kidney disease) Code(s): N18.9 - CHRONIC KIDNEY DISEASE, UNSPECIFIED Qualifiers: Chronic kidney disease stage: stage 3 (moderate) Qualified Code(s): N18.3 - Chronic kidney disease, stage 3 (moderate) (3) HTN (hypertension) Assessment/Plan: samr meds Vital Signs Period Temp Pulse Resp BP Sys/Shine Pulse Ox Last 24 Hr 97.8 F-98.5 F 79-93 17-20 107-151/49-83 96-100 Code(s): I10 - ESSENTIAL (PRIMARY) HYPERTENSION (4) Hematoma Assessment/Plan: Vascular consult Code(s): T14.8XXA - OTHER INJURY OF UNSPECIFIED BODY REGION, INITIAL ENCOUNTER (5) Myalgia Assessment/Plan: maybe due to repatha hydrate monitor Code(s): M79.10 - MYALGIA, UNSPECIFIED SITE
--- NOTE | 2019-12-29 09:19 | EKG ---
Test Reason : Blood Pressure : / mmHG Vent. Rate : 085 BPM Atrial Rate : 085 BPM P-R Int : 172 ms QRS Dur : 086 ms QT Int : 350 ms P-R-T Axes : 060 019 084 degrees QTc Int : 416 ms NORMAL SINUS RHYTHM NONSPECIFIC T WAVE ABNORMALITY ABNORMAL ECG WHEN COMPARED WITH ECG OF 14-DEC-2018 12:53, NONSPECIFIC T WAVE ABNORMALITY, WORSE IN INFERIOR LEADS Confirmed by MD NIGEL, SREE ([id number]) on 12/29/2019 9:19:27 AM Referred By: Confirmed By:SREE MANNING MD
--- NOTE | 2019-12-29 11:23 | PN ---
Progress Note (short form) - Note Progress Note: Pt seen and examined. Reports he is still having right groin and abdomen pain with examination and movement. Slightly improved from last week. Tolerating po. Has been oob ambulating. Voiding without issue. Denies cp/sob, n/v/d, le paresthesias or decreased movement. Vital Signs Temp 98.4 F 12/29/19 08:15 Pulse 81 12/29/19 08:15 Resp 20 12/29/19 08:15 BP 150/77 12/29/19 08:15 Pulse Ox 97 12/29/19 08:15 Intake & Output 12/28/19 12/28/19 12/29/19 11:59 23:59 11:59 Intake Total 800 Balance 800 Weight 205 lb 6.4 oz Intake: IV 800 Normal Saline - 1,000 ml 800 @ 100 mls/hr IV ASDIR GERALD Rx#:[id number] Other: Voiding Method Toilet Urinal Bowel Movement No No Height 6 ft Body Mass Index (BMI) 27.8 Weight Measurement Method Built in [facility] Built in [facility] Weight Measurement Method Estimated by Staff CBC, BMP 12/28/19 15:40 12/28/19 15:40 Gen: awake, alert, nad Resp: unlabored on ra Abdo: soft, nd, +ttp in rlq, ecchymosis noted Groin: R groin with ecchymosis noted, palpable hematoma, stable, + ttp Vasc: unable to appreciate femoral pule on R. Palpable femoral pulse on L, unable to appreciate pedal pulses, b/l feet warm well perfused, cap refill brisk, 5/5 df/pf A/P: 74 y/o M w/ PMHx prostate cancer treated with radiation, partial nephrectomy 10 years ago, hypertension, hyperlipidemia, a/w body aching/muscle spasms and cramping in the abdominal region. Pt s/p outpt angiogram on c/b extra peritoneal hematoma, now found to have acute kidney injury, admitted for further workup. R groin hematoma appears stable, labs noted, h/h appears relatively stable from d/c on Avoid any lines in r groin pain control monitor h/h, transfuse as needed renal following for elevated creatinine message sent to Dr Reeves regarding above (Covering for Dr Owusu)
[2019-12-29] MEDS: SODIUM CHLORIDE 1,000 ML IV SCH (12:09)
[2019-12-29 15:45] LABS: HEMATOCRIT 28.8 % (35.4-49); HEMOGLOBIN 9.2 GM/dL (11.7-16.9); MCH 27.3 pg (25.7-33.7); MCHC 32.2 g/dl (32.0-35.9); MEAN CELL VOLUME 84.9 fl (80-96); MEAN PLT VOLUME 7.7 fl (7.5-11.1); PLATELET COUNT 245 K/MM3 (134-434); RBC 3.39 M/mm3 (4.00-5.60); RDW 17.5 % (11.9-15.9); WHITE BLOOD COUNT 6.9 K/mm3 (4.0-10.0)
[2019-12-29 16:05] LABS: BLOOD UREA NITROGEN 20.3 mg/dL (7-18); CALCIUM 8.6 mg/dL (8.5-10.1); CREATININE 1.7 mg/dL (0.55-1.3); MAGNESIUM 2.2 mg/dL (1.8-2.4); POTASSIUM 4.1 mmol/L (3.5-5.1)
--- NOTE | 2019-12-29 17:33 | CONSULT ---
Consult Consult Specialty:: Nephrology Reason for Consultation:: MEGHANA - History of Present Illness Chief Complaint: generalized body aches History of Present Illness: Pt is a 74 year old male with pmhx of prostate cancer, partial nephrectomy, htn, hld, and kidney stones who presents to the ER with generalized body aches. 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 He denies dysuria or hematuria. he did have an angiogram done last thrusday. He denies fevers or chills. His renal function did improve with hydration. - History Source History Provided By: Patient - Past Medical History Cardio/Vascular: Yes: HTN, Hyperlipdemia Gastrointestinal: Yes: Other (gallstones) Hepatobiliary: Yes: Cholelithiasis, Cholecystitis Renal/: Yes: Cancer (renal cell s/p L lower renal lobectomy; prostate s/p radiation only), Renal Calculi Musculoskeletal: Yes: Osteoarthritis (knees) - Past Surgical History Past Surgical History: Yes: Cholecystectomy (laparoscopic (gangrenous) 04/19), Colonoscopy (with precancerous polyps, usually gets scoped [id number]), Joint Replacement (right knee), Nephrectomy (left lower partial) - Alcohol/Substance Use Hx Alcohol Use: Yes (DAILY 3 GIN/DAY) History of Substance Use: reports: None - Smoking History Smoking history: Former smoker Have you smoked in the past 12 months: Yes Aproximately how many cigarettes per day: 1 If you are a former smoker, when did you quit?: few weeks ago - Social History ADL: Independent Home Medications - Allergies Allergies/Adverse Reactions: Allergies Allergy/AdvReac Type Severity Reaction Status Date / Time JENNIFER Inhibitors Allergy Verified 12/14/18 10:26 Penicillins Allergy Verified 12/14/18 10:26 egg AdvReac Verified 12/28/19 14:28 - Home Medications Home Medications: Ambulatory Orders Amlodipine Besylate [Norvasc -] 5 mg PO DAILY #30 tablet 05/01/17 Metoprolol Succinate 25 mg PO DAILY 12/14/18 Acetaminophen [Tylenol .Regular Strength -] 650 mg PO Q6H PRN tablet 12/15/18 Oxycodone HCl/Acetaminophen [Percocet 5-325 mg Tablet] 1 tab PO Q6H PRN #12 tablet MDD 4 12/24/19 Family Medical History Family History: Denies Review of Systems - Review of Systems Constitutional: reports: Weakness Eyes: reports: No Symptoms HENT: reports: No Symptoms Neck: reports: No Symptoms Cardiovascular: reports: No Symptoms Respiratory: reports: No Symptoms Gastrointestinal: reports: No Symptoms Genitourinary: reports: No Symptoms Musculoskeletal: reports: No Symptoms Integumentary: reports: No Symptoms Neurological: reports: No Symptoms Endocrine: reports: No Symptoms Hematology/Lymphatic: reports: No Symptoms Psychiatric: reports: No Symptoms Physical Exam Vital Signs: Vital Signs Temperature 98.5 F 12/29/19 16:56 Pulse Rate 84 12/29/19 16:56 Respiratory Rate 12/29/19 16:56 Blood Pressure 148/92 12/29/19 16:56 O2 Sat by Pulse Oximetry (%) 98 12/29/19 14:00 Constitutional: Yes: Calm Eyes: Yes: Conjunctiva Clear HENT: Yes: Atraumatic Neck: Yes: Supple Cardiovascular: Yes: S1, S2 Respiratory: Yes: CTA Bilaterally Gastrointestinal: Yes: Soft Renal/: Yes: WNL Musculoskeletal: Yes: WNL Edema: No Neurological: Yes: Oriented Psychiatric: Yes: Oriented Labs: CBC, BMP 12/29/19 14:46 12/29/19 14:46 Problem List - Problems (1) Elevated serum creatinine Code(s): R79.89 - OTHER SPECIFIED ABNORMAL FINDINGS OF BLOOD CHEMISTRY (2) Acute kidney failure Code(s): N17.9 - ACUTE KIDNEY FAILURE, UNSPECIFIED Qualifiers: Acute renal failure type: unspecified Qualified Code(s): N17.9 - Acute kidney failure, unspecified Assessment/Plan Current Medications Generic Name Dose Route Start Last Admin Trade Name Rosanna PRN Reason Stop Dose Admin Acetaminophen 1,000 mg 12/29/19 11:18 Tylenol - PO Q6H PRN PAIN LEVEL 1-5 Sodium Chloride 1,000 mls @ 100 mls/hr 12/28/19 20:45 12/29/19 12:09 Normal Saline - IV 100 mls/hr ASDIR GERALD Administration Laboratory Tests 12/14/18 12/15/18 12/24/19 12:53 08:14 16:45 Creatinine 1.4 H 1.4 H 1.5 H COVID-19 (SWETA) 12/28/19 12/28/19 12/29/19 15:40 23:45 14:46 Creatinine 2.7 H 1.7 H COVID-19 (SWETA) Pending Impression 1. meghana 2. ckd 3. prostate ca 4. htn 5. hld Plan - renal function imrpoving - cont fluids, can decrease rate, change to 1/2 ns - repeat labs in am - check ua - avoid nsaids
[2019-12-29] MEDS: SODIUM CHLORIDE 0.45% 1,000 ML IV SCH (18:06)
[2019-12-29] MEDS: ACETAMINOPHEN 500 MG TABLET (FP) PO PRN (21:23)
[2019-12-30] MEDS ORDERED: MORPHINE SULFATE 2 MG/ML VIAL IVPUSH ONE (00:54)
[2019-12-30] MEDS: SODIUM CHLORIDE 0.45% 1,000 ML IV SCH (06:32)
[2019-12-30] MEDS: ACETAMINOPHEN 500 MG TABLET (FP) PO PRN (06:32)
[2019-12-30 08:59] LABS: BILIRUBIN,TOTAL 0.7 mg/dL (0.2-1); BLOOD UREA NITROGEN 20.4 mg/dL (7-18); CALCIUM 8.8 mg/dL (8.5-10.1); CREATININE 1.5 mg/dL (0.55-1.3); POTASSIUM 4.6 mmol/L (3.5-5.1); TOT PROT 6.7 g/dl (6.4-8.2); URIC ACID 6.1 mg/dL (2.6-7.2)
[2019-12-30] MEDS ORDERED: oxyCODONE HCL 5 MG TABLET PO PRN (09:30)
[2019-12-30] MEDS ORDERED: ACETAMINOPHEN 325 MG TABLET (FP) PO PRN (09:30)
[2019-12-30] MEDS ORDERED: COLCHICINE 0.6 MG CAP PO ONE (09:58)
[2019-12-30] MEDS ORDERED: metoPROLOL SUCCINATE 25 MG TAB.SR.24H (FP) PO SCH (10:00)
[2019-12-30] MEDS ORDERED: amLODIPine BESYLATE 5 MG TABLET (FP) PO SCH (10:00)
[2019-12-30] MEDS ORDERED: CLOPIDOGREL BISULFATE 75 MG TABLET (FP) PO SCH (10:00)
[2019-12-30] MEDS ORDERED: ASPIRIN 81 MG CHEWABLE TABLETS PO SCH (10:00)
--- NOTE | 2019-12-30 10:02 | DS ---
Physical Examination Vital Signs: Vital Signs Temperature 99 F 12/30/19 06:00 Pulse Rate 105 H 12/30/19 06:00 Respiratory Rate 20 12/30/19 06:00 Blood Pressure 142/60 12/30/19 06:00 O2 Sat by Pulse Oximetry (%) 95 12/30/19 06:00 Cardiovascular: Yes: Regular Rate and Rhythm Respiratory: Yes: Regular, CTA Bilaterally Gastrointestinal: Yes: Normal Bowel Sounds, Soft Extremities: Yes: Other (pain on movement of great toe) Edema: No Labs: CBC, BMP 12/29/19 14:46 12/30/19 07:47 Discharge Summary Problems reviewed: Yes Reason For Visit: HIGH SERUM CREATINE Current Active Problems Elevated serum creatinine (Acute) Myalgia (Acute) Hospital Course: - Problems (1) Acute kidney failure on CKD (chronic kidney disease) Assessment/Plan: maybe related to contrast follow labs renal consult Code(s): N17.9 - ACUTE KIDNEY FAILURE, UNSPECIFIED Qualifiers: Acute renal failure type: unspecified Qualified Code(s): N17.9 - Acute kidney failure, unspecified (2) Gout - colchicine and follow up in office (3) HTN (hypertension) Assessment/Plan: same meds Vital Signs Period Temp Pulse Resp BP Sys/Shine Pulse Ox Last 24 Hr 97.8 F-98.5 F 79-93 17-20 107-151/49-83 96-100 Code(s): I10 - ESSENTIAL (PRIMARY) HYPERTENSION (4) Hematoma Assessment/Plan: Vascular consult Code(s): T14.8XXA - OTHER INJURY OF UNSPECIFIED BODY REGION, INITIAL ENCOUNTER (5) Myalgia Assessment/Plan: maybe due to repatha hydrate monitor Code(s): M79.10 - MYALGIA, UNSPECIFIED SITE Condition: Improved - Instructions Referrals: Velasquez Garcia MD [Staff Physician] - 1 Week Nick Fofana MD [Primary Care Provider] - Disposition: HOME - Home Medications Comprehensive Discharge Medication List: Ambulatory Orders Amlodipine Besylate [Norvasc -] 5 mg PO DAILY #30 tablet 05/01/17 Metoprolol Succinate 25 mg PO DAILY 12/14/18 Acetaminophen [Tylenol .Regular Strength -] 650 mg PO Q6H PRN tablet 12/15/18 Oxycodone HCl/Acetaminophen [Percocet 5-325 mg Tablet] 1 tab PO Q6H PRN #12 tabl et MDD 4 12/24/19 Aspirin [ASA -] 81 mg PO DAILY tab.chew 12/30/19 Clopidogrel Bisulfate [Plavix -] 75 mg PO DAILY tablet 12/30/19 Colchicine [Colcrys] 0.6 mg PO DAILY #7 tablet 12/30/19
[2019-12-30] MEDS ORDERED: PT OWN MED DRAWER 7, Y5N ONE (10:05)
[2019-12-30 10:52] VITALS: BP 139/70; PULSE 85; TEMP 98.4
--- NOTE | 2019-12-30 11:12 | PN ---
Progress Note (short form) - Note Progress Note: VASCULAR Pt seen and examined. Pt states pain is improved in Right groin. Pt states that he is having Left toe pain that feels like an episode of Gout like he has had in the past. Tolerating po. Has been oob ambulating. Voiding without issue. Denies cp/sob, n/v/d, le paresthesias or decreased movement. Last Vital Signs Temp Pulse Resp BP Pulse Ox 98.4 F 85 20 139/70 97 12/30/19 09:10 12/30/19 09:10 12/30/19 09:10 12/30/19 09:10 12/30/19 09:10 CBC, BMP 12/29/19 14:46 12/30/19 07:47 Gen: awake, alert, nad Resp: unlabored on ra Abdo: soft, nd, +ttp in rlq, ecchymosis noted Groin: R groin with ecchymosis noted, palpable hematoma, stable, + ttp Vasc: unable to appreciate femoral pule on R. Palpable femoral pulse on L, unable to appreciate pedal pulses, b/l feet warm well perfused, cap refill brisk, 5/5 df/pf A/P: 74 y/o M w/ PMHx prostate cancer treated with radiation, partial nephrectomy 10 years ago, hypertension, hyperlipidemia, a/w body aching/muscle spasms and cramping in the abdominal region. Pt s/p outpt angiogram on c/b extra peritoneal hematoma, now found to have acute kidney injury, admitted for further workup. -hematoma appears to be stable, can restart ASA and plavix -recommend medicine workup for gout -pt should follow up with Dr. Owusu next week in the office as an outpatient.
--- NOTE | 2019-12-30 12:44 | PN ---
Progress Note, Physician History of Present Illness: Pt seen and examined at bedside. He is awake and alert. He denies shortness of breath. - Current Medication List Current Medications: Active Medications Acetaminophen (Tylenol -) 1,000 mg PO Q6H PRN PRN Reason: PAIN LEVEL 1-3 Last Admin: 12/30/19 06:32 Dose: 1,000 mg Documented by: Acetaminophen (Tylenol -) 325 mg PO Q6H PRN PRN Reason: PAIN 4-6 Amlodipine Besylate (Norvasc -) 5 mg PO DAILY [facility] Last Admin: 12/30/19 10:13 Dose: 5 mg Documented by: Aspirin (Asa -) 81 mg PO DAILY [facility] Last Admin: 12/30/19 10:13 Dose: 81 mg Documented by: Clopidogrel Bisulfate (Plavix -) 75 mg PO DAILY [facility] Last Admin: 12/30/19 10:13 Dose: 75 mg Documented by: Sodium Chloride (1/2 Normal Saline) 1,000 mls @ 75 mls/hr IV ASDIR [facility] Last Admin: 12/30/19 06:32 Dose: 75 mls/hr Documented by: Metoprolol Succinate (Toprol Xl -) 25 mg PO DAILY [facility] Last Admin: 12/30/19 10:13 Dose: 25 mg Documented by: Oxycodone HCl (Roxicodone -) 5 mg PO Q6H PRN PRN Reason: PAIN 4-6 - Objective Vital Signs: Vital Signs Temperature 98.4 F 12/30/19 09:10 Pulse Rate 85 12/30/19 09:10 Respiratory Rate 20 12/30/19 09:10 Blood Pressure 139/70 12/30/19 09:10 O2 Sat by Pulse Oximetry (%) 97 12/30/19 09:10 Constitutional: Yes: Calm Eyes: Yes: Conjunctiva Clear HENT: Yes: Atraumatic Neck: Yes: Supple Cardiovascular: Yes: S1, S2 Respiratory: Yes: CTA Bilaterally Gastrointestinal: Yes: Normal Bowel Sounds, Soft Genitourinary: Yes: WNL Musculoskeletal: Yes: WNL Edema: Yes Neurological: Yes: Oriented Psychiatric: Yes: Oriented Labs: CBC, BMP 12/29/19 14:46 12/30/19 07:47 INR, PTT INR 1.02 (0.83-1.09) 12/28/19 15:40 Problem List - Problems (1) Elevated serum creatinine Code(s): R79.89 - OTHER SPECIFIED ABNORMAL FINDINGS OF BLOOD CHEMISTRY (2) Acute kidney failure Code(s): N17.9 - ACUTE KIDNEY FAILURE, UNSPECIFIED Qualifiers: Acute renal failure type: unspecified Qualified Code(s): N17.9 - Acute kidney failure, unspecified Assessment/Plan Current Medications Generic Name Dose Route Start Last Admin Trade Name Freq PRN Reason Stop Dose Admin Acetaminophen 1,000 mg 12/29/19 11:18 12/30/19 06:32 Tylenol - PO 1,000 mg Q6H PRN Administration PAIN LEVEL 1-3 Acetaminophen 325 mg 12/30/19 09:30 Tylenol - PO Q6H PRN PAIN 4-6 Amlodipine Besylate 5 mg 12/30/19 10:00 12/30/19 10:13 Norvasc - PO 5 mg DAILY GERALD Administration Aspirin 81 mg 12/30/19 10:00 12/30/19 10:13 Asa - PO 81 mg DAILY GERALD Administration Clopidogrel Bisulfate 75 mg 12/30/19 10:00 12/30/19 10:13 Plavix - PO 75 mg DAILY GERALD Administration Sodium Chloride 1,000 mls @ 75 mls/hr 12/29/19 17:45 12/30/19 06:32 1/2 Normal Saline IV 75 mls/hr ASDIR GERALD Administration Metoprolol Succinate 25 mg 12/30/19 10:00 12/30/19 10:13 Toprol Xl - PO 25 mg DAILY GERALD Administration Oxycodone HCl 5 mg 12/30/19 09:30 Roxicodone - PO Q6H PRN PAIN 4-6 Laboratory Tests 12/28/19 12/29/19 12/30/19 15:40 14:46 07:47 Creatinine 2.7 H 1.7 H 1.5 H Impression 1. joel 2. ckd 3. prostate ca 4. htn 5. hld Plan - renal function improved - monitor bmp as outpt - send ua if he gives urine - avoid nsaids - avoid nephrotoxins
== END 2019-12-30 13:29 | disposition home or self-care (01) | DRG 683 ==
LOC: JER 14:19 → JERBED 17:56 → J8W 22:45
PROVIDERS: ADMIT Internal Medicine; ATTEND Family Medicine
DX: N17.9 Acute kidney failure, unspecified (principal); L76.22 Postprocedural hemorrhage of skin and subcutaneous tissue following other procedure; T50.8X5A Adverse effect of diagnostic agents, initial encounter; M79.10 Myalgia, unspecified site; E78.00 Pure hypercholesterolemia, unspecified; E78.5 Hyperlipidemia, unspecified; D72.829 Elevated white blood cell count, unspecified; Z90.5 Acquired absence of kidney; I12.9 Hypertensive chronic kidney disease with stage 1 through stage 4 chronic kidney disease, or unspecified chronic kidney disease; N18.3 Chronic kidney disease, stage 3 (moderate); M17.0 Bilateral primary osteoarthritis of knee; Z88.0 Allergy status to penicillin; Z85.53 Personal history of malignant neoplasm of renal pelvis; Z87.442 Personal history of urinary calculi; Z95.5 Presence of coronary angioplasty implant and graft; Z85.46 Personal history of malignant neoplasm of prostate
CPT/HCPCS: 36415; 80048; 80053; 82550; 82553; 83735; 84100; 84443; 84484; 84550; 85025; 85027; 85610; 93005; 93010; 99285-25; J0131; U0003

== ENCOUNTER 2020-10-03 05:19 | Day surgery (SDC) | payer OTHER, BC ==
[2020-09-30 18:28] VITALS: BMI 28.2
[2020-10-03] MEDS ORDERED: SODIUM CHLORIDE 500 ML IV SCH (10:45)
[2020-10-03] MEDS ORDERED: MIDAZOLAM HCL 2 MG/2 ML SINGLE DOSE VIAL IVPUSH ONE (10:45)
[2020-10-03 14:18] VITALS: BP 127/79; PULSE 72; TEMP 98.4
== END 2020-10-03 14:00 | disposition home or self-care (01) ==
LOC: JRADIR 05:19
PROVIDERS: ATTEND Family Medicine
PROC: 0WBH3ZX Excision of Retroperitoneum, Percutaneous Approach, Diagnostic (ICD-10-PCS; principal; 2020-10-03)
DX: C78.6 Secondary malignant neoplasm of retroperitoneum and peritoneum (principal)
CPT/HCPCS: 49180; 88305-TC

== ENCOUNTER 2020-10-07 12:35 | Inpatient (IN) | payer OTHER, BC ==
[2020-10-07 12:43] VITALS: BMI 28.2
[2020-10-07 15:02] LABS: BASO % 0.4 % (0-2.0); EOS % 2.6 % (0-4.5); HEMATOCRIT 32.5 % (35.4-49); HEMOGLOBIN 10.9 GM/dL (11.7-16.9); LYMPH % 5.5 % (8-40); MCHC 33.5 g/dl (32.0-35.9); MEAN CELL VOLUME 86.5 fl (80-96); MONO % 11.5 % (3.8-10.2); PLATELET COUNT 229 K/MM3 (134-434); RBC 3.76 M/mm3 (4.00-5.60)
[2020-10-07 15:08] LABS: INR 0.99 (0.83-1.09)
[2020-10-07 15:11] LABS: ACTIVATED PTT 28.3 SECONDS (25.2-36.5)
[2020-10-07 15:13] LABS: VENOUS BASE EXCESS -2.8 mmol/L (-2-2); VENOUS O2 SATURATION 59.8 % (70-80); VENOUS PCO2 39.7 mmHg (38-52); VENOUS PH 7.367 (7.310-7.410)
[2020-10-07 15:14] LABS: EPI CELLS 2 /uL (0-25.1); HYALINE CASTS 0 /uL (0-3.1); URINE APPEARANCE CLEAR; URINE BACTERIA 183 /uL (0-1359); URINE BILIRUBIN NEGATIVE (NEGATIVE); URINE COLOR YELLOW; URINE GLUCOSE (UA) NEGATIVE (NEGATIVE); URINE KETONE NEGATIVE (NEGATIVE); URINE LEUK ESTERASE NEGATIVE (NEGATIVE); URINE NITRITE NEGATIVE (NEGATIVE); URINE PROTEIN 2+ (NEGATIVE); URINE RBC 5 /uL (0-23.9); URINE UROBILINOGEN 0.2 mg/dL (0.2-1.0); URINE WBC 5 /uL (0-25.8)
[2020-10-07 15:21] LABS: CHLORIDE 109 mmol/L (98-107); SODIUM 139 mmol/L (136-145)
[2020-10-07 15:24] LABS: ALBUMIN 3.1 g/dl (3.4-5.0); ANION GAP 6 MMOL/L (8-16); CO2 25 mmol/L (21-32); GLUCOSE,RANDOM 86 mg/dL (74-106)
[2020-10-07 15:27] LABS: CREATININE 1.6 mg/dL (0.55-1.3); SGOT/AST 31 U/L (15-37); SGPT/ALT 17 U/L (13-61)
[2020-10-07 15:28] LABS: BILIRUBIN,TOTAL 0.5 mg/dL (0.2-1)
[2020-10-07 15:30] LABS: ALK PHOS 130 U/L (45-117)
[2020-10-07] MEDS ORDERED: SODIUM CHLORIDE 0.9% 500 ML INFUS.BAG IV ONE ×2 (16:10→19:25)
[2020-10-07] MEDS ORDERED: VANCOMYCIN 1 GM in D5W (PRE-DOCKED) 1,000 MG/250 ML IVPB ONE (18:40)
[2020-10-07] MEDS ORDERED: PIPERACILLIN/TAZOB 3.375 GM 3.375 GM in DEXTROSE 5%-WATER - 50 ML IVPB ONE (18:42)
[2020-10-07] MEDS ORDERED: PIPERACILLIN/TAZOB 3.375 GM 3.375 GM/50 ML BAG IVPB ONE (19:07)
[2020-10-07] MEDS ORDERED: ACETAMINOPHEN 1000 MG/100 ML VIAL (NON FORMULARY) IVPB ONE (19:25)
[2020-10-07] MEDS ORDERED: ACETAMINOPHEN INJECTION 100 ML IVPB ONE (19:50)
[2020-10-07] MEDS ORDERED: VANCOMYCIN 1 GRAM (PRE-DOCKED) 1,000 MG/250 ML BAG IVPB ONE (20:11)
[2020-10-08] MEDS ORDERED: DEXTROSE 5%-0.45% SALINE 1,000 ML IV SCH (00:01)
[2020-10-08] MEDS: traMADol HCL 50 MG TABLET PO PRN ×2 (04:56→20:54)
[2020-10-08 06:46] LABS: BASO % 0.7 % (0-2.0); EOS % 3.7 % (0-4.5); HEMATOCRIT 31.8 % (35.4-49); HEMOGLOBIN 10.9 GM/dL (11.7-16.9); LYMPH % 8.5 % (8-40); MCH 29.5 pg (25.7-33.7); MCHC 34.3 g/dl (32.0-35.9); MEAN CELL VOLUME 86.1 fl (80-96); MEAN PLT VOLUME 7.7 fl (7.5-11.1); MONO % 11.9 % (3.8-10.2); NEUT % 75.2 % (42.8-82.8); PLATELET COUNT 227 K/MM3 (134-434); RDW 16.4 % (11.9-15.9); WHITE BLOOD COUNT 5.8 K/mm3 (4.0-10.0)
[2020-10-08 07:03] LABS: ALBUMIN 2.9 g/dl (3.4-5.0); CALCIUM 8.2 mg/dL (8.5-10.1)
[2020-10-08 07:04] LABS: BLOOD UREA NITROGEN 18.6 mg/dL (7-18)
[2020-10-08 07:06] LABS: CREATININE 1.6 mg/dL (0.55-1.3)
[2020-10-08 07:08] LABS: BILIRUBIN,TOTAL 0.6 mg/dL (0.2-1); TOT PROT 6.4 g/dl (6.4-8.2)
[2020-10-08] MEDS ORDERED: DEXTROSE 5%-WATER 100 ML IVPB ONE ×3 (08:41→20:45)
[2020-10-08] MEDS ORDERED: MEROPENEM 1 GM VIAL (RESTRICTED TO ID) IVPB ONE (08:41)
[2020-10-08] MEDS: amLODIPine BESYLATE 10 MG TABLET (FP) PO SCH (09:17)
[2020-10-08] MEDS: metoPROLOL SUCCINATE 25 MG TAB.SR.24H (FP) PO SCH (09:17)
[2020-10-08] MEDS: PANTOPRAZOLE 40 MG TABLET PO SCH (09:17)
[2020-10-08] MEDS: ACETAMINOPHEN 325 MG TABLET (FP) PO PRN (09:18)
[2020-10-08] MEDS: HEPARIN NA (PORCINE) 5,000 UNITS/ML 1ML VIAL SQ SCH ×2 (09:28→21:14)
[2020-10-08] MEDS ORDERED: MEROPENEM 1 GM in DEXTROSE 5%-WATER 100 ML IVPB SCH (10:00)
[2020-10-08] MEDS: IRON POLYSACCHARIDES 150 MG CAPSULE PO SCH (10:18)
[2020-10-08] MEDS ORDERED: CEFEPIME HCL 1 GM VIAL (RESTRICTED TO ID) ONE ×2 (12:40→20:45)
[2020-10-08] MEDS: CEFEPIME 1 GM in DEXTROSE 5%-WATER 1 GM/100 ML BAG IVPB SCH ×2 (13:05→21:13)
[2020-10-08] MEDS: VANCOMYCIN 1 GRAM (PRE-DOCKED) 1,000 MG/250 ML BAG IVPB SCH (13:47)
[2020-10-08] MEDS ORDERED: diazePAM 5 MG TABLET PO ONE (15:45)
[2020-10-09] MEDS ORDERED: DEXTROSE 5%-WATER 100 ML IVPB ONE ×2 (07:50→21:11)
[2020-10-09] MEDS ORDERED: CEFEPIME HCL 1 GM VIAL (RESTRICTED TO ID) ONE ×3 (07:50→21:11)
[2020-10-09] MEDS: traMADol HCL 50 MG TABLET PO PRN ×2 (08:52→16:20)
[2020-10-09] MEDS: IRON POLYSACCHARIDES 150 MG CAPSULE PO SCH (09:04)
[2020-10-09] MEDS: metoPROLOL SUCCINATE 25 MG TAB.SR.24H (FP) PO SCH (09:04)
[2020-10-09] MEDS: CEFEPIME 1 GM in DEXTROSE 5%-WATER 1 GM/100 ML BAG IVPB SCH ×3 (09:04→21:16)
[2020-10-09] MEDS: HEPARIN NA (PORCINE) 5,000 UNITS/ML 1ML VIAL SQ SCH ×2 (09:04→21:16)
[2020-10-09] MEDS: amLODIPine BESYLATE 10 MG TABLET (FP) PO SCH (09:04)
[2020-10-09] MEDS: PANTOPRAZOLE 40 MG TABLET PO SCH (09:04)
[2020-10-09] MEDS: ACETAMINOPHEN 325 MG TABLET (FP) PO PRN (12:45)
[2020-10-09] MEDS: VANCOMYCIN 1 GRAM (PRE-DOCKED) 1,000 MG/250 ML BAG IVPB SCH (12:45)
[2020-10-10] MEDS: ACETAMINOPHEN 325 MG TABLET (FP) PO PRN (02:06)
[2020-10-10] MEDS ORDERED: CEFEPIME HCL 1 GM VIAL (RESTRICTED TO ID) ONE ×2 (09:50→20:38)
[2020-10-10] MEDS ORDERED: DEXTROSE 5%-WATER 100 ML IVPB ONE ×2 (09:50→20:38)
[2020-10-10] MEDS: HEPARIN NA (PORCINE) 5,000 UNITS/ML 1ML VIAL SQ SCH ×2 (09:54→21:14)
[2020-10-10] MEDS: metoPROLOL SUCCINATE 25 MG TAB.SR.24H (FP) PO SCH (09:54)
[2020-10-10] MEDS: CEFEPIME 1 GM in DEXTROSE 5%-WATER 1 GM/100 ML BAG IVPB SCH ×2 (09:54→21:15)
[2020-10-10] MEDS: PANTOPRAZOLE 40 MG TABLET PO SCH (09:54)
[2020-10-10] MEDS: amLODIPine BESYLATE 10 MG TABLET (FP) PO SCH (09:54)
[2020-10-10] MEDS: IRON POLYSACCHARIDES 150 MG CAPSULE PO SCH (09:59)
[2020-10-10 10:43] LABS: BASO % 0.5 % (0-2.0); EOS % 5.4 % (0-4.5); HEMATOCRIT 32.1 % (35.4-49); HEMOGLOBIN 10.8 GM/dL (11.7-16.9); MCH 29.3 pg (25.7-33.7); MCHC 33.6 g/dl (32.0-35.9); MEAN CELL VOLUME 87.3 fl (80-96); MEAN PLT VOLUME 8.1 fl (7.5-11.1); MONO % 10.6 % (3.8-10.2); NEUT % 75.5 % (42.8-82.8); PLATELET COUNT 243 K/MM3 (134-434); RBC 3.68 M/mm3 (4.00-5.60); RDW 15.8 % (11.9-15.9); WHITE BLOOD COUNT 4.9 K/mm3 (4.0-10.0)
[2020-10-10 11:02] LABS: ALBUMIN 2.9 g/dl (3.4-5.0); BLOOD UREA NITROGEN 18.1 mg/dL (7-18); CALCIUM 8.6 mg/dL (8.5-10.1)
[2020-10-10 11:05] LABS: CREATININE 1.5 mg/dL (0.55-1.3); URIC ACID 5.5 mg/dL (2.6-7.2)
[2020-10-10 11:07] LABS: TOT PROT 6.6 g/dl (6.4-8.2)
[2020-10-10 11:11] LABS: BILIRUBIN,TOTAL 0.2 mg/dL (0.2-1)
[2020-10-10] MEDS: VANCOMYCIN 1 GRAM (PRE-DOCKED) 1,000 MG/250 ML BAG IVPB SCH (14:03)
[2020-10-10] MEDS: traMADol HCL 50 MG TABLET PO PRN (16:02)
[2020-10-11] MEDS: traMADol HCL 50 MG TABLET PO PRN ×2 (01:21→20:08)
[2020-10-11 08:01] LABS: BASO % 0.5 % (0-2.0); HEMATOCRIT 33.2 % (35.4-49); HEMOGLOBIN 11.3 GM/dL (11.7-16.9); LYMPH % 9.2 % (8-40); MCH 29.5 pg (25.7-33.7); MCHC 33.9 g/dl (32.0-35.9); MONO % 10.4 % (3.8-10.2); NEUT % 74.9 % (42.8-82.8); PLATELET COUNT 274 K/MM3 (134-434); RBC 3.81 M/mm3 (4.00-5.60); WHITE BLOOD COUNT 5.6 K/mm3 (4.0-10.0)
[2020-10-11 08:09] LABS: ALBUMIN 3.1 g/dl (3.4-5.0); BLOOD UREA NITROGEN 18.2 mg/dL (7-18); CALCIUM 9.3 mg/dL (8.5-10.1)
[2020-10-11 08:12] LABS: CREATININE 1.4 mg/dL (0.55-1.3)
[2020-10-11 08:13] LABS: BILIRUBIN,TOTAL 0.4 mg/dL (0.2-1); TOT PROT 6.9 g/dl (6.4-8.2)
[2020-10-11] MEDS ORDERED: CEFEPIME HCL 1 GM VIAL (RESTRICTED TO ID) ONE ×2 (08:53→20:22)
[2020-10-11] MEDS ORDERED: DEXTROSE 5%-WATER 100 ML IVPB ONE ×2 (08:53→20:23)
[2020-10-11] MEDS: CEFEPIME 1 GM in DEXTROSE 5%-WATER 1 GM/100 ML BAG IVPB SCH ×2 (09:45→21:03)
[2020-10-11] MEDS: IRON POLYSACCHARIDES 150 MG CAPSULE PO SCH (09:46)
[2020-10-11] MEDS: HEPARIN NA (PORCINE) 5,000 UNITS/ML 1ML VIAL SQ SCH ×2 (09:46→21:03)
[2020-10-11] MEDS: PANTOPRAZOLE 40 MG TABLET PO SCH (09:46)
[2020-10-11] MEDS: metoPROLOL SUCCINATE 25 MG TAB.SR.24H (FP) PO SCH (09:51)
[2020-10-11] MEDS: amLODIPine BESYLATE 10 MG TABLET (FP) PO SCH (09:51)
[2020-10-11] MEDS: VANCOMYCIN 1 GRAM (PRE-DOCKED) 1,000 MG/250 ML BAG IVPB SCH (14:28)
[2020-10-11] MEDS ORDERED: DOCUSATE SODIUM 100 MG CAPSULE (FP) PO PRN (21:11)
[2020-10-12] MEDS ORDERED: DEXTROSE 5%-WATER 100 ML IVPB ONE (09:25)
[2020-10-12] MEDS ORDERED: CEFEPIME HCL 1 GM VIAL (RESTRICTED TO ID) ONE (09:25)
[2020-10-12] MEDS: CEFEPIME 1 GM in DEXTROSE 5%-WATER 1 GM/100 ML BAG IVPB SCH (09:28)
[2020-10-12] MEDS: IRON POLYSACCHARIDES 150 MG CAPSULE PO SCH ×2 (09:29→13:03)
[2020-10-12] MEDS: HEPARIN NA (PORCINE) 5,000 UNITS/ML 1ML VIAL SQ SCH (09:29)
[2020-10-12] MEDS: PANTOPRAZOLE 40 MG TABLET PO SCH (09:31)
[2020-10-12] MEDS: amLODIPine BESYLATE 10 MG TABLET (FP) PO SCH (09:31)
[2020-10-12] MEDS: metoPROLOL SUCCINATE 25 MG TAB.SR.24H (FP) PO SCH (09:31)
[2020-10-12 13:43] VITALS: BP 136/78; PULSE 76; TEMP 97.9
[2020-10-12] MEDS ORDERED: CLINDAMYCIN HCL 150 MG CAPSULE (FP) PO SCH (14:00)
== END 2020-10-12 16:30 | disposition home or self-care (01) | DRG 920 ==
LOC: JER 12:35 → JERBED 19:13 → J7W 21:44
PROVIDERS: ADMIT Internal Medicine; ATTEND Family Medicine
DX: L76.82 Other postprocedural complications of skin and subcutaneous tissue (principal); L02.211 Cutaneous abscess of abdominal wall; C79.2 Secondary malignant neoplasm of skin; C64.9 Malignant neoplasm of unspecified kidney, except renal pelvis; L03.311 Cellulitis of abdominal wall; I12.9 Hypertensive chronic kidney disease with stage 1 through stage 4 chronic kidney disease, or unspecified chronic kidney disease; E78.5 Hyperlipidemia, unspecified; N18.30 Chronic kidney disease, stage 3 unspecified; F17.210 Nicotine dependence, cigarettes, uncomplicated; Y83.9 Surgical procedure, unspecified as the cause of abnormal reaction of the patient, or of later complication, without mention of misadventure at the time of the procedure; K21.9 Gastro-esophageal reflux disease without esophagitis
CPT/HCPCS: 36415; 70551-TC; 71045-TC-FY; 71250-TC; 74176-TC; 80053; 81003; 82803; 83605; 83615; 84484; 84550; 85025; 85610; 85730; 87040; 87086; 93005; 93010; 99285-25; C9803; G0480; J0131; J1644; U0003; U0005

== ENCOUNTER 2021-01-28 17:34 | Emergency (ER) | payer OTHER, BC ==
[2021-01-28 17:52] VITALS: BP 127/84; PULSE 108; TEMP 98; BMI 27.1
== END 2021-01-28 19:21 | disposition left against medical advice (07) ==
LOC: JER 17:34
DX: R51.9 Headache, unspecified (principal)
CPT/HCPCS: 99281-25

== ENCOUNTER 2021-03-24 14:16 | Inpatient (IN) | payer OTHER, BC ==
[2021-03-24 14:26] VITALS: BMI 26.4
[2021-03-24] MEDS ORDERED: SODIUM CHLORIDE 0.9% 500 ML INFUS.BAG IV ONE (16:41)
[2021-03-24] MEDS ORDERED: ACETAMINOPHEN 1000 MG/100 ML VIAL IVPB ONE (16:41)
[2021-03-24] MEDS ORDERED: ONDANSETRON 4 MG/2 ML VIAL IVPB ONE (16:41)
[2021-03-24] MEDS ORDERED: FAMOTIDINE 20 MG/50 ML IVPB 20 MG/50 ML MG IVPB ONE ×2 (16:41→18:16)
[2021-03-24] MEDS ORDERED: ONDANSETRON 4 MG/2 ML VIAL IVPUSH ONE (17:19)
[2021-03-24 18:13] LABS: HEMATOCRIT 38.2 % (35.4-49); HEMOGLOBIN 12.9 GM/dL (11.7-16.9); MCHC 33.8 g/dl (32.0-35.9); MEAN CELL VOLUME 91.8 fl (80-96); MEAN PLT VOLUME 7.7 fl (7.5-11.1); PLATELET COUNT 307 10^3/uL (134-434); RBC 4.16 M/mm3 (4.00-5.60); RDW 15.4 % (11.9-15.9)
[2021-03-24] MEDS ORDERED: ACETAMINOPHEN INJECTION 100 ML IVPB ONE (18:16)
[2021-03-24 18:29] LABS: CHLORIDE 107 mmol/L (98-107); SODIUM 140 mmol/L (136-145)
[2021-03-24 18:31] LABS: ALBUMIN 3.9 g/dl (3.4-5.0); ANION GAP 7 MMOL/L (8-16); CALCIUM 10.2 mg/dL (8.5-10.1); CO2 26 mmol/L (21-32); LIPASE 122 U/L (73-393)
[2021-03-24 18:32] LABS: BLOOD UREA NITROGEN 31.2 mg/dL (7-18); GLUCOSE,RANDOM 138 mg/dL (74-106)
[2021-03-24 18:34] LABS: SGOT/AST 22 U/L (15-37); SGPT/ALT 22 U/L (13-61)
[2021-03-24 18:35] LABS: CREATININE 2.8 mg/dL (0.55-1.3)
[2021-03-24 18:36] LABS: BILIRUBIN,TOTAL 0.7 mg/dL (0.2-1); TOT PROT 8.4 g/dl (6.4-8.2)
[2021-03-24 18:37] LABS: ALK PHOS 132 U/L (45-117)
[2021-03-24] MEDS ORDERED: ONDANSETRON 4 MG/2 ML VIAL ONE (18:38)
[2021-03-24 19:12] LABS: ANISOCYTOSIS 1+; MACROCYTOSIS 0
[2021-03-24] MEDS ORDERED: morphine CARPU-JECT 2 MG/1 ML DISP.SYRIN IVPUSH ONE (21:39)
[2021-03-24] MEDS ORDERED: morphine SULFATE 4 MG/ML VIAL ONE (21:44)
[2021-03-24] MEDS ORDERED: ONDANSETRON 4 MG/2 ML VIAL IVPUSH PRN (23:12)
[2021-03-24] MEDS ORDERED: DEXTROSE 5%-0.45% SALINE 1,000 ML IV SCH (23:15)
[2021-03-25] MEDS ORDERED: morphine SULFATE 4 MG/ML VIAL ONE (01:10)
[2021-03-25] MEDS: morphine SULFATE 4 MG/ML VIAL IVPUSH PRN ×3 (01:16→16:04)
[2021-03-25 03:54] LABS: EPI CELLS 2 /uL (0-25.1); HYALINE CASTS 0 /uL (0-3.1); PH,URINE 5.5 (5.0-8.0); URINE APPEARANCE CLEAR; URINE BACTERIA 5 /uL (0-1359); URINE BILIRUBIN NEGATIVE (NEGATIVE); URINE COLOR YELLOW; URINE GLUCOSE (UA) NEGATIVE (NEGATIVE); URINE KETONE NEGATIVE (NEGATIVE); URINE LEUK ESTERASE NEGATIVE (NEGATIVE); URINE NITRITE NEGATIVE (NEGATIVE); URINE PROTEIN 3+ (NEGATIVE); URINE RBC 15 /uL (0-23.9); URINE UROBILINOGEN 0.2 mg/dL (0.2-1.0); URINE WBC 1 /uL (0-25.8)
[2021-03-25 09:36] LABS: BASO % 0.4 % (0-2.0); EOS % 0.4 % (0-4.5); HEMATOCRIT 33.6 % (35.4-49); HEMOGLOBIN 11.5 GM/dL (11.7-16.9); LYMPH % 4.1 % (8-40); MCH 31.2 pg (25.7-33.7); MCHC 34.2 g/dl (32.0-35.9); MEAN CELL VOLUME 91.3 fl (80-96); MEAN PLT VOLUME 7.5 fl (7.5-11.1); MONO % 9.7 % (3.8-10.2); NEUT % 85.4 % (42.8-82.8); PLATELET COUNT 278 10^3/uL (134-434); RBC 3.68 M/mm3 (4.00-5.60); RDW 15.5 % (11.9-15.9); WHITE BLOOD COUNT 10.5 K/mm3 (4.0-10.0)
[2021-03-25] MEDS ORDERED: PANTOPRAZOLE SODIUM 40 MG VIAL IVPUSH SCH (10:00)
[2021-03-25] MEDS ORDERED: metoPROLOL SUCCINATE 25 MG TAB.SR.24H (FP) PO SCH (10:00)
[2021-03-25] MEDS ORDERED: amLODIPine BESYLATE 5 MG TABLET (FP) PO SCH (10:00)
[2021-03-25] MEDS ORDERED: MIDAZOLAM HCL 2 MG/2 ML SINGLE DOSE VIAL ONE (10:13)
[2021-03-25] MEDS ORDERED: PROPOFOL 20 ML ONE (10:13)
[2021-03-25] MEDS ORDERED: ONDANSETRON 4 MG/2 ML VIAL IVPUSH PRN (10:17)
[2021-03-25] MEDS ORDERED: GENTAMICIN SO4 80 MG/2 ML VIAL ONE (10:30)
[2021-03-25] MEDS ORDERED: GENTAMICIN 80MG PREMIX BAG IVPB ONE (10:30)
[2021-03-25] MEDS: metoPROLOL SUCCINATE 25 MG TAB.SR.24H (FP) PO SCH (10:45)
[2021-03-25] MEDS: amLODIPine BESYLATE 10 MG TABLET (FP) PO SCH (10:45)
[2021-03-25] MEDS: PANTOPRAZOLE SODIUM 40 MG VIAL IVPUSH SCH (10:45)
[2021-03-25] MEDS: DEXTROSE 5%-0.45% SALINE 1,000 ML IV SCH (10:45)
[2021-03-25] MEDS ORDERED: IOHEXOL 300 MG/ML INFUS..BTL IV ONE (10:52)
[2021-03-25 11:17] LABS: ALBUMIN 3.1 g/dl (3.4-5.0); BLOOD UREA NITROGEN 29.4 mg/dL (7-18)
[2021-03-25 11:20] LABS: CREATININE 3.1 mg/dL (0.55-1.3)
[2021-03-25 11:21] LABS: BILIRUBIN,TOTAL 0.7 mg/dL (0.2-1)
[2021-03-25 11:27] LABS: CALCIUM 8.6 mg/dL (8.5-10.1)
[2021-03-26] MEDS: DEXTROSE 5%-0.45% SALINE 1,000 ML IV SCH ×2 (01:24→09:34)
[2021-03-26] MEDS: PANTOPRAZOLE SODIUM 40 MG VIAL IVPUSH SCH (09:33)
[2021-03-26] MEDS: amLODIPine BESYLATE 10 MG TABLET (FP) PO SCH (09:33)
[2021-03-26] MEDS: metoPROLOL SUCCINATE 25 MG TAB.SR.24H (FP) PO SCH (09:33)
[2021-03-26 09:34] LABS: BASO % 0.4 % (0-2.0); HEMOGLOBIN 11.3 GM/dL (11.7-16.9); LYMPH % 7.9 % (8-40); MCH 31.3 pg (25.7-33.7); MCHC 34.4 g/dl (32.0-35.9); MEAN CELL VOLUME 91.2 fl (80-96); MEAN PLT VOLUME 7.3 fl (7.5-11.1); MONO % 8.8 % (3.8-10.2); NEUT % 80.9 % (42.8-82.8); PLATELET COUNT 260 10^3/uL (134-434); RBC 3.62 M/mm3 (4.00-5.60); RDW 15.3 % (11.9-15.9); WHITE BLOOD COUNT 7.8 K/mm3 (4.0-10.0)
[2021-03-26 09:54] LABS: ALBUMIN 2.9 g/dl (3.4-5.0); BLOOD UREA NITROGEN 27.5 mg/dL (7-18); CALCIUM 8.5 mg/dL (8.5-10.1)
[2021-03-26 09:57] LABS: CREATININE 2.6 mg/dL (0.55-1.3)
[2021-03-26 09:59] LABS: BILIRUBIN,TOTAL 0.6 mg/dL (0.2-1); TOT PROT 6.5 g/dl (6.4-8.2)
[2021-03-26] MEDS: morphine SULFATE 4 MG/ML VIAL IVPUSH PRN ×3 (10:23→22:46)
[2021-03-27] MEDS: DEXTROSE 5%-0.45% SALINE 1,000 ML IV SCH ×2 (05:24→11:18)
[2021-03-27 09:40] LABS: BASO % 0.4 % (0-2.0); EOS % 3.4 % (0-4.5); HEMOGLOBIN 11.1 GM/dL (11.7-16.9); LYMPH % 7.1 % (8-40); MCH 30.8 pg (25.7-33.7); MCHC 33.7 g/dl (32.0-35.9); MEAN CELL VOLUME 91.5 fl (80-96); MEAN PLT VOLUME 7.6 fl (7.5-11.1); MONO % 9.7 % (3.8-10.2); NEUT % 79.4 % (42.8-82.8); PLATELET COUNT 253 10^3/uL (134-434); RBC 3.61 M/mm3 (4.00-5.60); RDW 15.3 % (11.9-15.9); WHITE BLOOD COUNT 6.6 K/mm3 (4.0-10.0)
[2021-03-27 09:54] LABS: BLOOD UREA NITROGEN 23.5 mg/dL (7-18); CALCIUM 8.8 mg/dL (8.5-10.1)
[2021-03-27 09:55] LABS: ALBUMIN 2.6 g/dl (3.4-5.0)
[2021-03-27 09:58] LABS: CREATININE 1.8 mg/dL (0.55-1.3)
[2021-03-27 09:59] LABS: BILIRUBIN,TOTAL 0.5 mg/dL (0.2-1); TOT PROT 6.3 g/dl (6.4-8.2)
[2021-03-27] MEDS: amLODIPine BESYLATE 10 MG TABLET (FP) PO SCH (10:23)
[2021-03-27] MEDS: morphine SULFATE 4 MG/ML VIAL IVPUSH PRN ×2 (10:24→21:09)
[2021-03-27] MEDS: metoPROLOL SUCCINATE 25 MG TAB.SR.24H (FP) PO SCH (10:24)
[2021-03-27] MEDS: PANTOPRAZOLE SODIUM 40 MG VIAL IVPUSH SCH (10:25)
[2021-03-28] MEDS: morphine SULFATE 4 MG/ML VIAL IVPUSH PRN (05:11)
[2021-03-28 09:28] LABS: BASO % 0.6 % (0-2.0); EOS % 4.6 % (0-4.5); HEMATOCRIT 33.1 % (35.4-49); HEMOGLOBIN 11.2 GM/dL (11.7-16.9); LYMPH % 9.2 % (8-40); MCH 30.7 pg (25.7-33.7); MCHC 33.7 g/dl (32.0-35.9); MEAN CELL VOLUME 91.1 fl (80-96); MEAN PLT VOLUME 7.5 fl (7.5-11.1); MONO % 9.5 % (3.8-10.2); NEUT % 76.1 % (42.8-82.8); PLATELET COUNT 247 10^3/uL (134-434); RBC 3.63 M/mm3 (4.00-5.60); RDW 15.1 % (11.9-15.9); WHITE BLOOD COUNT 6.3 K/mm3 (4.0-10.0)
[2021-03-28 09:36] VITALS: BP 120/68; PULSE 82; TEMP 98.1
[2021-03-28] MEDS: metoPROLOL SUCCINATE 25 MG TAB.SR.24H (FP) PO SCH (09:37)
[2021-03-28] MEDS: amLODIPine BESYLATE 10 MG TABLET (FP) PO SCH (09:37)
[2021-03-28] MEDS: PANTOPRAZOLE SODIUM 40 MG VIAL IVPUSH SCH (09:37)
[2021-03-28] MEDS: DEXTROSE 5%-0.45% SALINE 1,000 ML IV SCH (09:40)
[2021-03-28 10:01] LABS: CALCIUM 8.7 mg/dL (8.5-10.1)
[2021-03-28 10:02] LABS: ALBUMIN 2.8 g/dl (3.4-5.0); BLOOD UREA NITROGEN 21.6 mg/dL (7-18)
[2021-03-28 10:04] LABS: CREATININE 1.8 mg/dL (0.55-1.3)
[2021-03-28 10:06] LABS: BILIRUBIN,TOTAL 0.4 mg/dL (0.2-1)
[2021-03-28 10:07] LABS: TOT PROT 6.3 g/dl (6.4-8.2)
[2021-03-28] MEDS ORDERED: PT OWN MED DRAWER 7, Y5N ONE (10:14)
== END 2021-03-28 14:46 | disposition home or self-care (01) | DRG 660 ==
LOC: JER 14:16 → JERBED 20:59 → J5S 03-25 02:53
PROVIDERS: ADMIT Internal Medicine; ATTEND Family Medicine
PROC: 0TF68ZZ Fragmentation in Right Ureter, Via Natural or Artificial Opening Endoscopic (ICD-10-PCS; 2021-03-25)
PROC: BT1DZZZ Fluoroscopy of Right Kidney, Ureter and Bladder (ICD-10-PCS; 2021-03-25)
PROC: 0TJB8ZZ Inspection of Bladder, Via Natural or Artificial Opening Endoscopic (ICD-10-PCS; 2021-03-25)
PROC: 0T768DZ Dilation of Right Ureter with Intraluminal Device, Via Natural or Artificial Opening Endoscopic (ICD-10-PCS; principal; 2021-03-25 10:00)
DX: N13.2 Hydronephrosis with renal and ureteral calculous obstruction (principal); C79.89 Secondary malignant neoplasm of other specified sites; I12.9 Hypertensive chronic kidney disease with stage 1 through stage 4 chronic kidney disease, or unspecified chronic kidney disease; N18.30 Chronic kidney disease, stage 3 unspecified; E78.5 Hyperlipidemia, unspecified; M17.0 Bilateral primary osteoarthritis of knee; R10.84 Generalized abdominal pain; K21.9 Gastro-esophageal reflux disease without esophagitis; D64.9 Anemia, unspecified; I65.29 Occlusion and stenosis of unspecified carotid artery; Z85.46 Personal history of malignant neoplasm of prostate; Z96.651 Presence of right artificial knee joint; Z90.5 Acquired absence of kidney
CPT/HCPCS: 36415; 71046-TC-FY; 74176-TC; 76700-TC; 80048; 80053; 81003; 82360; 82550; 82553; 83605; 83690; 84484; 85025; 87086; 88300-TC; 93005; 93010; 94760; 99285-25; C9803; J0131; U0003; U0005

== ENCOUNTER 2021-04-26 11:49 | Inpatient (IN) | payer OTHER, BC ==
[2021-04-26] MEDS ORDERED: SODIUM CHLORIDE 0.9% 500 ML INFUS.BAG IV ONE (13:16)
[2021-04-26] MEDS ORDERED: ONDANSETRON 4 MG/2 ML VIAL IVPUSH ONE ×2 (13:16→14:32)
[2021-04-26] MEDS ORDERED: FAMOTIDINE 20 MG/50 ML IVPB 20 MG/50 ML MG IVPB ONE ×2 (13:16→13:22)
[2021-04-26] MEDS ORDERED: ACETAMINOPHEN 1000 MG/100 ML VIAL IVPB ONE (13:17)
[2021-04-26] MEDS ORDERED: ACETAMINOPHEN INJECTION 100 ML IVPB ONE (13:22)
[2021-04-26] MEDS ORDERED: ONDANSETRON 4 MG/2 ML VIAL ONE ×2 (13:22→17:04)
[2021-04-26 14:02] LABS: BASO % 0.3 % (0-2.0); EOS % 0.4 % (0-4.5); HEMATOCRIT 32.5 % (35.4-49); LYMPH % 3.8 % (8-40); MCH 31.2 pg (25.7-33.7); MCHC 33.9 g/dl (32.0-35.9); MEAN CELL VOLUME 92.1 fl (80-96); MEAN PLT VOLUME 7.5 fl (7.5-11.1); MONO % 6.6 % (3.8-10.2); NEUT % 88.9 % (42.8-82.8); PLATELET COUNT 235 10^3/uL (134-434); RBC 3.53 M/mm3 (4.00-5.60); RDW 15.2 % (11.9-15.9); WHITE BLOOD COUNT 9.6 K/mm3 (4.0-10.0)
[2021-04-26] MEDS ORDERED: morphine CARPU-JECT 4 MG/1 ML DISP.SYRIN IVPUSH ONE (14:07)
[2021-04-26 14:10] LABS: INR 0.96 (0.83-1.09); PROTHROMBIN TIME (PATIENT) 11.2 SEC (9.7-13.0)
[2021-04-26 14:12] LABS: ACTIVATED PTT 27.7 SECONDS (25.2-36.5)
[2021-04-26] MEDS ORDERED: morphine SULFATE 4 MG/ML VIAL ONE (14:12)
[2021-04-26 14:52] LABS: ALBUMIN 3.4 g/dl (3.4-5.0); ALK PHOS 110 U/L (45-117); ANION GAP 8 MMOL/L (8-16); BILIRUBIN,TOTAL 0.6 mg/dL (0.2-1); BLOOD UREA NITROGEN 42.6 mg/dL (7-18); CALCIUM 8.9 mg/dL (8.5-10.1); CHLORIDE 106 mmol/L (98-107); CO2 25 mmol/L (21-32); CREATININE 5.1 mg/dL (0.55-1.3); GLUCOSE,RANDOM 130 mg/dL (74-106); LIPASE 74 U/L (73-393); MAGNESIUM 1.9 mg/dL (1.8-2.4); SGOT/AST 18 U/L (15-37); SGPT/ALT 17 U/L (13-61); SODIUM 139 mmol/L (136-145); TOT PROT 7.2 g/dl (6.4-8.2)
[2021-04-26 15:39] LABS: EPI CELLS 1 /uL (0-25.1); HYALINE CASTS 0 /uL (0-3.1); PH,URINE 5.5 (5.0-8.0); URINE APPEARANCE CLEAR; URINE BACTERIA 4 /uL (0-1359); URINE BILIRUBIN NEGATIVE (NEGATIVE); URINE COLOR YELLOW; URINE GLUCOSE (UA) NEGATIVE (NEGATIVE); URINE KETONE NEGATIVE (NEGATIVE); URINE LEUK ESTERASE NEGATIVE (NEGATIVE); URINE NITRITE NEGATIVE (NEGATIVE); URINE PROTEIN 2+ (NEGATIVE); URINE RBC 2 /uL (0-23.9); URINE WBC 2 /uL (0-25.8)
[2021-04-26] MEDS ORDERED: METOCLOPRAMIDE HCL INJECTION 10 MG/2 ML VIAL IVPUSH ONE (16:35)
[2021-04-26] MEDS ORDERED: ACETAMINOPHEN 325 MG TABLET (FP) PO PRN (16:37)
[2021-04-26] MEDS ORDERED: DOCUSATE SODIUM 100 MG CAPSULE (FP) PO PRN (16:37)
[2021-04-26] MEDS ORDERED: HYDROmorphone HCl 2 MG/ML VIAL IVPB PRN (16:38)
[2021-04-26] MEDS ORDERED: ONDANSETRON 4 MG/2 ML VIAL IVPB PRN (16:38)
[2021-04-26] MEDS ORDERED: SODIUM CHLORIDE 1,000 ML IV SCH ×2 (16:45→20:09)
[2021-04-26] MEDS ORDERED: METOCLOPRAMIDE HCL INJECTION 10 MG/2 ML VIAL ONE (17:04)
[2021-04-26] MEDS ORDERED: HYDROmorphone HCl 2 MG/ML VIAL ONE (18:04)
[2021-04-26] MEDS ORDERED: PROPOFOL 20 ML ONE ×2 (18:46)
[2021-04-26] MEDS ORDERED: SUCCINYLCHOLINE CHLORIDE 200 MG/10 ML SYRINGE ONE (18:47)
[2021-04-26] MEDS ORDERED: SUGAMMADEX SODIUM 200 MG/2 ML VIAL ONE (18:58)
[2021-04-26] MEDS ORDERED: MIDAZOLAM HCL 2 MG/2 ML SINGLE DOSE VIAL ONE ×2 (19:03→19:05)
[2021-04-26 22:22] VITALS: BMI 26.2
[2021-04-26] MEDS: ONDANSETRON 4 MG/2 ML VIAL IVPB PRN (23:50)
[2021-04-27] MEDS: HYDROmorphone HCl 2 MG/ML VIAL IVPB PRN ×4 (00:52→22:43)
[2021-04-27] MEDS: SODIUM CHLORIDE 0.45% 1,000 ML IV SCH ×2 (07:05→22:20)
[2021-04-27] MEDS: amLODIPine BESYLATE 10 MG TABLET (FP) PO SCH (09:26)
[2021-04-27] MEDS: PANTOPRAZOLE 40 MG TABLET PO SCH (09:26)
[2021-04-27] MEDS: metoPROLOL SUCCINATE 25 MG TAB.SR.24H (FP) PO SCH (09:26)
[2021-04-27] MEDS: ONDANSETRON 4 MG/2 ML VIAL IVPB PRN ×2 (09:27→22:45)
[2021-04-27] MEDS: ACETAMINOPHEN 325 MG TABLET (FP) PO PRN (09:27)
[2021-04-27 09:41] LABS: BASO % 0.3 % (0-2.0); EOS % 0.6 % (0-4.5); HEMATOCRIT 32.6 % (35.4-49); LYMPH % 5.7 % (8-40); MCH 30.8 pg (25.7-33.7); MCHC 33.9 g/dl (32.0-35.9); MEAN CELL VOLUME 91.1 fl (80-96); MEAN PLT VOLUME 6.9 fl (7.5-11.1); MONO % 9.3 % (3.8-10.2); NEUT % 84.1 % (42.8-82.8); PLATELET COUNT 229 10^3/uL (134-434); RBC 3.58 M/mm3 (4.00-5.60); RDW 15.3 % (11.9-15.9)
[2021-04-27] MEDS ORDERED: oxyCODONE HCL 5 MG TABLET PO PRN (09:56)
[2021-04-27] MEDS ORDERED: amLODIPine BESYLATE 10 MG TABLET (FP) PO SCH (10:00)
[2021-04-27] MEDS ORDERED: metoPROLOL SUCCINATE 25 MG TAB.SR.24H (FP) PO SCH (10:00)
[2021-04-27] MEDS ORDERED: PANTOPRAZOLE 40 MG TABLET PO SCH (10:00)
[2021-04-27] MEDS: DOCUSATE SODIUM 100 MG CAPSULE (FP) PO PRN (10:28)
[2021-04-27 10:53] LABS: CALCIUM 8.7 mg/dL (8.5-10.1); CREATININE 3.9 mg/dL (0.55-1.3)
[2021-04-27 10:54] LABS: ALBUMIN 3.1 g/dl (3.4-5.0); BILIRUBIN,TOTAL 0.6 mg/dL (0.2-1)
[2021-04-27 11:00] LABS: BLOOD UREA NITROGEN 36.3 mg/dL (7-18)
[2021-04-27] MEDS: oxyCODONE HCL 5 MG TABLET PO PRN (11:19)
[2021-04-28 09:12] LABS: BASO % 0.4 % (0-2.0); EOS % 3.5 % (0-4.5); HEMATOCRIT 32.4 % (35.4-49); HEMOGLOBIN 11.1 GM/dL (11.7-16.9); LYMPH % 6.2 % (8-40); MCHC 34.2 g/dl (32.0-35.9); MEAN CELL VOLUME 90.5 fl (80-96); MEAN PLT VOLUME 6.7 fl (7.5-11.1); MONO % 11.6 % (3.8-10.2); NEUT % 78.3 % (42.8-82.8); PLATELET COUNT 243 10^3/uL (134-434); RBC 3.58 M/mm3 (4.00-5.60)
[2021-04-28] MEDS: SODIUM CHLORIDE 0.45% 1,000 ML IV SCH (10:02)
[2021-04-28] MEDS: oxyCODONE HCL 5 MG TABLET PO PRN (10:03)
[2021-04-28] MEDS: ONDANSETRON 4 MG/2 ML VIAL IVPB PRN ×2 (10:03→20:36)
[2021-04-28] MEDS: PANTOPRAZOLE 40 MG TABLET PO SCH (10:03)
[2021-04-28] MEDS: amLODIPine BESYLATE 10 MG TABLET (FP) PO SCH (10:03)
[2021-04-28] MEDS: metoPROLOL SUCCINATE 25 MG TAB.SR.24H (FP) PO SCH (10:03)
[2021-04-28 13:43] LABS: ALBUMIN 2.9 g/dl (3.4-5.0); BILIRUBIN,TOTAL 0.5 mg/dL (0.2-1); BLOOD UREA NITROGEN 30.4 mg/dL (7-18); CREATININE 2.9 mg/dL (0.55-1.3); TOT PROT 6.7 g/dl (6.4-8.2)
[2021-04-28] MEDS: HYDROmorphone HCl 2 MG/ML VIAL IVPB PRN (21:11)
[2021-04-29] MEDS: SODIUM CHLORIDE 0.45% 1,000 ML IV SCH ×3 (02:13→17:12)
[2021-04-29 08:42] LABS: BASO % 0.4 % (0-2.0); EOS % 3.4 % (0-4.5); HEMATOCRIT 33.9 % (35.4-49); HEMOGLOBIN 11.3 GM/dL (11.7-16.9); LYMPH % 5.8 % (8-40); MCH 30.3 pg (25.7-33.7); MCHC 33.4 g/dl (32.0-35.9); MEAN CELL VOLUME 90.9 fl (80-96); MEAN PLT VOLUME 7.1 fl (7.5-11.1); NEUT % 78.4 % (42.8-82.8); PLATELET COUNT 257 10^3/uL (134-434); RBC 3.73 M/mm3 (4.00-5.60); RDW 14.9 % (11.9-15.9); WHITE BLOOD COUNT 6.2 K/mm3 (4.0-10.0)
[2021-04-29 09:14] LABS: CALCIUM 8.9 mg/dL (8.5-10.1)
[2021-04-29 09:15] LABS: ALBUMIN 2.9 g/dl (3.4-5.0); BLOOD UREA NITROGEN 23.2 mg/dL (7-18)
[2021-04-29 09:17] LABS: CREATININE 2.3 mg/dL (0.55-1.3)
[2021-04-29 09:19] LABS: BILIRUBIN,TOTAL 0.7 mg/dL (0.2-1)
[2021-04-29 09:20] LABS: TOT PROT 6.7 g/dl (6.4-8.2)
[2021-04-29] MEDS: PANTOPRAZOLE 40 MG TABLET PO SCH (11:01)
[2021-04-29] MEDS: DOCUSATE SODIUM 100 MG CAPSULE (FP) PO PRN (11:01)
[2021-04-29] MEDS: amLODIPine BESYLATE 10 MG TABLET (FP) PO SCH (11:01)
[2021-04-29] MEDS: metoPROLOL SUCCINATE 25 MG TAB.SR.24H (FP) PO SCH (11:02)
[2021-04-29] MEDS: oxyCODONE HCL 5 MG TABLET PO PRN (11:03)
[2021-04-29] MEDS: ONDANSETRON 4 MG/2 ML VIAL IVPB PRN (20:45)
[2021-04-30] MEDS: ONDANSETRON 4 MG/2 ML VIAL IVPB PRN ×2 (06:38→17:35)
[2021-04-30] MEDS: SODIUM CHLORIDE 0.45% 1,000 ML IV SCH (06:40)
[2021-04-30 08:51] LABS: BASO % 0.7 % (0-2.0); EOS % 4.6 % (0-4.5); HEMATOCRIT 34.9 % (35.4-49); HEMOGLOBIN 11.7 GM/dL (11.7-16.9); MCH 30.4 pg (25.7-33.7); MCHC 33.3 g/dl (32.0-35.9); MEAN CELL VOLUME 91.1 fl (80-96); MONO % 10.3 % (3.8-10.2); NEUT % 76.4 % (42.8-82.8); PLATELET COUNT 285 10^3/uL (134-434); RBC 3.84 M/mm3 (4.00-5.60); RDW 14.8 % (11.9-15.9); WHITE BLOOD COUNT 5.7 K/mm3 (4.0-10.0)
[2021-04-30 09:21] LABS: CALCIUM 8.5 mg/dL (8.5-10.1)
[2021-04-30 09:22] LABS: ALBUMIN 2.8 g/dl (3.4-5.0); BLOOD UREA NITROGEN 24.6 mg/dL (7-18)
[2021-04-30 09:25] LABS: CREATININE 2.3 mg/dL (0.55-1.3)
[2021-04-30 09:27] LABS: BILIRUBIN,TOTAL 0.4 mg/dL (0.2-1); TOT PROT 6.6 g/dl (6.4-8.2)
[2021-04-30] MEDS: DOCUSATE SODIUM 100 MG CAPSULE (FP) PO PRN (09:41)
[2021-04-30] MEDS: amLODIPine BESYLATE 10 MG TABLET (FP) PO SCH (09:41)
[2021-04-30] MEDS: oxyCODONE HCL 5 MG TABLET PO PRN (09:41)
[2021-04-30] MEDS: PANTOPRAZOLE 40 MG TABLET PO SCH (09:41)
[2021-04-30] MEDS: metoPROLOL SUCCINATE 25 MG TAB.SR.24H (FP) PO SCH (09:41)
[2021-04-30] MEDS: ACETAMINOPHEN 325 MG TABLET (FP) PO PRN (17:36)
[2021-05-01] MEDS: ONDANSETRON 4 MG/2 ML VIAL IVPB PRN (03:29)
[2021-05-01 10:06] VITALS: BP 133/72; PULSE 90; TEMP 98
[2021-05-01] MEDS: amLODIPine BESYLATE 10 MG TABLET (FP) PO SCH (10:06)
[2021-05-01] MEDS: PANTOPRAZOLE 40 MG TABLET PO SCH (10:06)
[2021-05-01] MEDS: metoPROLOL SUCCINATE 25 MG TAB.SR.24H (FP) PO SCH (10:06)
[2021-05-01 13:01] LABS: BLOOD UREA NITROGEN 26.7 mg/dL (7-18)
[2021-05-01 13:04] LABS: CREATININE 2.4 mg/dL (0.55-1.3)
== END 2021-05-01 13:39 | disposition home or self-care (01) | DRG 661 ==
LOC: JER 11:49 → JERBED 15:13 → J5S 21:29
PROVIDERS: ADMIT Family Medicine; ATTEND Family Medicine
PROC: 0T768DZ Dilation of Right Ureter with Intraluminal Device, Via Natural or Artificial Opening Endoscopic (ICD-10-PCS; 2021-04-26)
PROC: BT1DZZZ Fluoroscopy of Right Kidney, Ureter and Bladder (ICD-10-PCS; 2021-04-26)
PROC: 0TF68ZZ Fragmentation in Right Ureter, Via Natural or Artificial Opening Endoscopic (ICD-10-PCS; principal; 2021-04-26 18:00)
DX: N17.9 Acute kidney failure, unspecified (principal); N13.2 Hydronephrosis with renal and ureteral calculous obstruction; I12.9 Hypertensive chronic kidney disease with stage 1 through stage 4 chronic kidney disease, or unspecified chronic kidney disease; N18.9 Chronic kidney disease, unspecified; E78.5 Hyperlipidemia, unspecified; C61 Malignant neoplasm of prostate; M17.0 Bilateral primary osteoarthritis of knee; D64.9 Anemia, unspecified; Z85.528 Personal history of other malignant neoplasm of kidney; Z90.5 Acquired absence of kidney; Z96.651 Presence of right artificial knee joint
CPT/HCPCS: 36415; 74176-TC; 76000-TC-FY; 80048; 80053; 81003; 83690; 83735; 84100; 84484; 85025; 85610; 85730; 87086; 93005; 93010; 94760; 99285-25; C9803; J0131; U0003; U0005

== ENCOUNTER 2021-05-15 05:15 | Day surgery (SDC) | payer OTHER, BC ==
[2021-05-08 18:30] VITALS: BMI 27.1
[2021-05-15] MEDS ORDERED: MIDAZOLAM HCL 2 MG/2 ML SINGLE DOSE VIAL ONE (09:57)
[2021-05-15] MEDS ORDERED: GLYCOPYRROLATE 0.2 MG/1 ML VIAL ONE (09:57)
[2021-05-15] MEDS ORDERED: PROPOFOL 20 ML ONE (09:57)
[2021-05-15] MEDS ORDERED: LIDOCAINE HCL/PF 2% SDV 5ML VIAL ONE (09:58)
[2021-05-15] MEDS ORDERED: KETOROLAC TROMETHAMINE 30 MG/1 ML VIAL ONE (09:58)
[2021-05-15] MEDS ORDERED: ONDANSETRON 4 MG/2 ML VIAL ONE (11:02)
[2021-05-15] MEDS ORDERED: ONDANSETRON *ODT* 4 MG TABLET SL ONE (11:05)
[2021-05-15 11:26] VITALS: BP 125/73; PULSE 87
[2021-05-15] MEDS ORDERED: ONDANSETRON 4 MG/2 ML VIAL IVPUSH ONE (11:57)
[2021-05-15 12:42] VITALS: TEMP 98.6
== END 2021-05-15 12:30 | disposition home or self-care (01) ==
LOC: JASU-SURG 05:15
PROVIDERS: ATTEND Urology
PROC: 0TF3XZZ Fragmentation in Right Kidney Pelvis, External Approach (ICD-10-PCS; principal; 2021-05-15 09:30)
DX: N20.0 Calculus of kidney (principal)

== ENCOUNTER 2021-06-07 14:21 | Inpatient (IN) | payer OTHER, BC ==
[2021-06-07 15:21] VITALS: BMI 27.2
[2021-06-07] MEDS ORDERED: LIDOCAINE HCL 2% JELLY 10 ML CARTRIDGE ONE (15:34)
[2021-06-07 22:11] LABS: URINE APPEARANCE Cloudy; URINE BILIRUBIN 3+ (NEGATIVE); URINE COLOR Red; URINE GLUCOSE (UA) Trace (NEGATIVE); URINE KETONE 2+ (NEGATIVE); URINE LEUK ESTERASE 3+ (NEGATIVE); URINE NITRITE Negative (NEGATIVE); URINE PROTEIN 3+ (NEGATIVE); URINE UROBILINOGEN 4.0 E.U/dl mg/dL (0.2-1.0)
[2021-06-07 22:14] LABS: BASO % 0.4 % (0-2.0); EOS % 3.1 % (0-4.5); HEMATOCRIT 29.3 % (35.4-49); HEMOGLOBIN 9.7 GM/dL (11.7-16.9); LYMPH % 10.2 % (8-40); MCHC 33.3 g/dl (32.0-35.9); MEAN PLT VOLUME 6.8 fl (7.5-11.1); MONO % 11.1 % (3.8-10.2); NEUT % 75.2 % (42.8-82.8); PLATELET COUNT 293 10^3/uL (134-434); RBC 3.25 M/mm3 (4.00-5.60); RDW 15.2 % (11.9-15.9); WHITE BLOOD COUNT 5.3 K/mm3 (4.0-10.0)
[2021-06-07 22:22] LABS: INR 1.01 (0.83-1.09); PROTHROMBIN TIME (PATIENT) 11.8 SEC (9.7-13.0)
[2021-06-07 22:24] LABS: ACTIVATED PTT 26.5 SECONDS (25.2-36.5)
[2021-06-07 22:35] LABS: CALCIUM 9.3 mg/dL (8.5-10.1)
[2021-06-07 22:36] LABS: ALBUMIN 3.4 g/dl (3.4-5.0); MAGNESIUM 1.9 mg/dL (1.8-2.4)
[2021-06-07 22:39] LABS: CREATININE 2.2 mg/dL (0.55-1.3)
[2021-06-07 22:40] LABS: BILIRUBIN,TOTAL 0.3 mg/dL (0.2-1); TOT PROT 6.8 g/dl (6.4-8.2)
[2021-06-08] MEDS ORDERED: diazePAM CARPU-JECT 10 MG/2 ML DISP.SYRIN IVPUSH ONE (02:29)
[2021-06-08] MEDS ORDERED: SODIUM CHLORIDE 1,000 ML IV SCH (02:45)
[2021-06-08] MEDS ORDERED: diazePAM CARPU-JECT 10 MG/2 ML DISP.SYRIN ONE (02:49)
[2021-06-08 03:57] LABS: BASO % 0.4 % (0-2.0); EOS % 3.1 % (0-4.5); HEMATOCRIT 29.1 % (35.4-49); HEMOGLOBIN 9.8 GM/dL (11.7-16.9); LYMPH % 8.1 % (8-40); MCH 30.5 pg (25.7-33.7); MCHC 33.7 g/dl (32.0-35.9); MEAN CELL VOLUME 90.5 fl (80-96); MEAN PLT VOLUME 6.7 fl (7.5-11.1); MONO % 10.2 % (3.8-10.2); NEUT % 78.2 % (42.8-82.8); PLATELET COUNT 279 10^3/uL (134-434); RBC 3.22 M/mm3 (4.00-5.60); RDW 15.1 % (11.9-15.9); WHITE BLOOD COUNT 6.5 K/mm3 (4.0-10.0)
[2021-06-08] MEDS ORDERED: LIDOCAINE HCL 2% JELLY 10 ML CARTRIDGE ONE (04:12)
[2021-06-08] MEDS ORDERED: morphine CARPU-JECT 4 MG/1 ML DISP.SYRIN IVPUSH ONE (04:24)
[2021-06-08] MEDS ORDERED: LIDOCAINE HCL 2% JELLY 10 ML CARTRIDGE UR ONE (04:26)
[2021-06-08] MEDS ORDERED: morphine SULFATE 4 MG/ML VIAL ONE (04:27)
[2021-06-08] MEDS ORDERED: SODIUM CHLORIDE 0.45% 1,000 ML IV SCH (12:45)
[2021-06-08] MEDS ORDERED: oxyCODONE HCL 5 MG TABLET PO ONE ×2 (17:00→23:45)
[2021-06-08] MEDS ORDERED: ACETAMINOPHEN 325 MG TABLET (FP) PO ONE ×2 (17:00→23:45)
[2021-06-08] MEDS ORDERED: oxyCODONE/APAP PERCOCET - MUST ORDER INDIVIDUAL COMPONENTS NR ONE (19:12)
[2021-06-08] MEDS: DOCUSATE SODIUM 100 MG CAPSULE (FP) PO SCH (21:14)
[2021-06-09 08:19] LABS: BASO % 0.3 % (0-2.0); EOS % 3.6 % (0-4.5); HEMATOCRIT 29.3 % (35.4-49); LYMPH % 4.7 % (8-40); MCH 30.8 pg (25.7-33.7); MCHC 34.1 g/dl (32.0-35.9); MEAN CELL VOLUME 90.4 fl (80-96); MEAN PLT VOLUME 7.1 fl (7.5-11.1); MONO % 9.1 % (3.8-10.2); NEUT % 82.3 % (42.8-82.8); PLATELET COUNT 265 10^3/uL (134-434); RBC 3.24 M/mm3 (4.00-5.60); RDW 15.1 % (11.9-15.9)
[2021-06-09 08:59] LABS: CALCIUM 8.9 mg/dL (8.5-10.1)
[2021-06-09 09:00] LABS: BLOOD UREA NITROGEN 24.3 mg/dL (7-18)
[2021-06-09 09:03] LABS: CREATININE 1.6 mg/dL (0.55-1.3)
[2021-06-09] MEDS ORDERED: PANTOPRAZOLE 20 MG TABLET PO SCH (10:00)
[2021-06-09] MEDS: metoPROLOL SUCCINATE 25 MG TAB.SR.24H (FP) PO SCH (10:46)
[2021-06-09] MEDS: PANTOPRAZOLE 20 MG TABLET PO SCH (10:46)
[2021-06-09] MEDS: DOCUSATE SODIUM 100 MG CAPSULE (FP) PO SCH (10:46)
[2021-06-10] MEDS: DOCUSATE SODIUM 100 MG CAPSULE (FP) PO SCH (09:07)
[2021-06-10] MEDS: metoPROLOL SUCCINATE 25 MG TAB.SR.24H (FP) PO SCH (09:07)
[2021-06-10] MEDS: PANTOPRAZOLE 20 MG TABLET PO SCH (09:07)
[2021-06-10] MEDS ORDERED: ACETAMINOPHEN 325 MG TABLET (FP) PO PRN (13:20)
[2021-06-10] MEDS: oxyCODONE HCL 5 MG TABLET PO PRN (13:43)
[2021-06-11] MEDS: oxyCODONE HCL 5 MG TABLET PO PRN (00:29)
[2021-06-11 09:03] LABS: BLOOD UREA NITROGEN 21.1 mg/dL (7-18); CALCIUM 9.1 mg/dL (8.5-10.1)
[2021-06-11 09:07] LABS: CREATININE 1.6 mg/dL (0.55-1.3)
[2021-06-11] MEDS: DOCUSATE SODIUM 100 MG CAPSULE (FP) PO SCH (09:15)
[2021-06-11] MEDS: TAMSULOSIN HCL 0.4 MG CAP PO SCH (09:15)
[2021-06-11] MEDS: PANTOPRAZOLE 20 MG TABLET PO SCH (09:15)
[2021-06-11] MEDS: metoPROLOL SUCCINATE 25 MG TAB.SR.24H (FP) PO SCH (09:16)
[2021-06-11] MEDS ORDERED: PROCHLORPERAZINE MALEATE 5 MG TABLET PO ONE (20:58)
[2021-06-12] MEDS: TAMSULOSIN HCL 0.4 MG CAP PO SCH (08:45)
[2021-06-12] MEDS: metoPROLOL SUCCINATE 25 MG TAB.SR.24H (FP) PO SCH (10:44)
[2021-06-12] MEDS: PANTOPRAZOLE 20 MG TABLET PO SCH (10:44)
[2021-06-12] MEDS: DOCUSATE SODIUM 100 MG CAPSULE (FP) PO SCH (10:44)
[2021-06-12 12:55] LABS: BASO % 0.5 % (0-2.0); EOS % 3.8 % (0-4.5); HEMATOCRIT 31.2 % (35.4-49); HEMOGLOBIN 10.4 GM/dL (11.7-16.9); MCH 30.5 pg (25.7-33.7); MCHC 33.3 g/dl (32.0-35.9); MEAN CELL VOLUME 91.5 fl (80-96); MEAN PLT VOLUME 6.9 fl (7.5-11.1); NEUT % 79.7 % (42.8-82.8); PLATELET COUNT 270 10^3/uL (134-434); RBC 3.41 M/mm3 (4.00-5.60); WHITE BLOOD COUNT 6.2 K/mm3 (4.0-10.0)
[2021-06-12 13:15] LABS: BLOOD UREA NITROGEN 21.7 mg/dL (7-18); MAGNESIUM 1.7 mg/dL (1.8-2.4)
[2021-06-12 13:18] LABS: CREATININE 1.7 mg/dL (0.55-1.3); PHOSPHOROUS 3.7 mg/dL (2.5-4.9)
[2021-06-12] MEDS ORDERED: MAGNESIUM 2GM/50ML STERILE WATER IVPB IVPB ONE (15:00)
[2021-06-12 15:25] VITALS: BP 116/66; PULSE 81; TEMP 98.1
== END 2021-06-12 17:32 | disposition home or self-care (01) | DRG 686 ==
LOC: JER 14:21 → JERBED 06-08 00:28 → J4S 06-08 05:59
PROVIDERS: ADMIT Internal Medicine; ATTEND Internal Medicine
DX: C64.2 Malignant neoplasm of left kidney, except renal pelvis (principal); U07.1 COVID-19; N17.9 Acute kidney failure, unspecified; N39.0 Urinary tract infection, site not specified; E78.5 Hyperlipidemia, unspecified; K21.9 Gastro-esophageal reflux disease without esophagitis; R31.0 Gross hematuria; C61 Malignant neoplasm of prostate; I12.9 Hypertensive chronic kidney disease with stage 1 through stage 4 chronic kidney disease, or unspecified chronic kidney disease; N18.9 Chronic kidney disease, unspecified; D64.9 Anemia, unspecified; R80.9 Proteinuria, unspecified; M17.0 Bilateral primary osteoarthritis of knee; R19.00 Intra-abdominal and pelvic swelling, mass and lump, unspecified site; N20.0 Calculus of kidney; R33.9 Retention of urine, unspecified; Z90.5 Acquired absence of kidney
CPT/HCPCS: 36415; 74176-TC; 80048; 80053; 81003; 83735; 84100; 85025; 85610; 85730; 86850; 86900; 86901; 87040; 87086; 99285-25; C9803-CS; U0003; U0005

== ENCOUNTER 2021-08-02 04:47 | Day surgery (SDC) | payer OTHER, BC ==
[2021-07-28 11:15] VITALS: BMI 26.2
[2021-08-02 09:24] VITALS: TEMP 99
[2021-08-02 10:44] VITALS: BP 137/87; PULSE 69
== END 2021-08-02 11:11 | disposition home or self-care (01) ==
LOC: JASU-ENDO 04:47
PROVIDERS: ATTEND Internal Medicine Gastroenterology
PROC: 0DB78ZX Excision of Stomach, Pylorus, Via Natural or Artificial Opening Endoscopic, Diagnostic (ICD-10-PCS; 2021-08-02)
PROC: 0DBN8ZX Excision of Sigmoid Colon, Via Natural or Artificial Opening Endoscopic, Diagnostic (ICD-10-PCS; 2021-08-02)
PROC: 0DB98ZX Excision of Duodenum, Via Natural or Artificial Opening Endoscopic, Diagnostic (ICD-10-PCS; principal; 2021-08-02 09:30)
DX: Z12.11 Encounter for screening for malignant neoplasm of colon (principal); D50.0 Iron deficiency anemia secondary to blood loss (chronic); K25.3 Acute gastric ulcer without hemorrhage or perforation; K29.90 Gastroduodenitis, unspecified, without bleeding; K92.1 Melena; K64.8 Other hemorrhoids; K57.30 Diverticulosis of large intestine without perforation or abscess without bleeding; Z86.010 Personal history of colon polyps; R19.4 Change in bowel habit; I10 Essential (primary) hypertension
CPT/HCPCS: 88305-TC

== ENCOUNTER 2022-01-21 17:47 | Emergency (ER) | payer OTHER, BC ==
[2022-01-21 17:52] VITALS: BP 133/80; PULSE 74; RESP 18; TEMP 97.9; BMI 27.1
[2022-01-21 20:14] LABS: BASO % 0.7 % (0-2.0); EOS % 4.4 % (0-4.5); HEMATOCRIT 36.6 % (35.4-49); HEMOGLOBIN 12.4 GM/dL (11.7-16.9); LYMPH % 8.8 % (8-40); MCH 31.4 pg (25.7-33.7); MCHC 33.9 g/dl (32.0-35.9); MEAN CELL VOLUME 92.4 fl (80-96); MEAN PLT VOLUME 7.2 fl (7.5-11.1); MONO % 9.6 % (3.8-10.2); NEUT % 76.5 % (42.8-82.8); PLATELET COUNT 217 10^3/uL (134-434); RBC 3.97 M/mm3 (4.00-5.60); RDW 14.2 % (11.9-15.9); WHITE BLOOD COUNT 4.6 K/mm3 (4.0-10.0)
[2022-01-21 20:30] LABS: ALBUMIN 3.6 g/dl (3.4-5.0); BLOOD UREA NITROGEN 29.8 mg/dL (7-18); CALCIUM 9.3 mg/dL (8.5-10.1)
[2022-01-21 20:33] LABS: CREATININE 1.8 mg/dL (0.55-1.3)
[2022-01-21 20:35] LABS: BILIRUBIN,TOTAL 0.4 mg/dL (0.2-1); TOT PROT 7.6 g/dl (6.4-8.2)
== END 2022-01-21 21:20 | disposition home or self-care (01) ==
LOC: JER 17:47
DX: R42 Dizziness and giddiness (principal); R51.9 Headache, unspecified
CPT/HCPCS: 36415; 70450-TC; 80053; 85025; 93005; 93010; 99285-25

== ENCOUNTER 2022-04-25 21:54 | Emergency (ER) | payer OTHER, BC ==
[2022-04-25 22:13] VITALS: BP 114/72; PULSE 92; RESP 20; TEMP 98; BMI 27.1
[2022-04-25] MEDS ORDERED: DIPHTH,PERTUSS(ACELL),TET 0.5 ML DISP.SYRIN IM ONE ×2 (23:17→23:28)
== END 2022-04-26 00:42 | disposition home or self-care (01) ==
LOC: JER 21:54
PROC: 3E0234Z Introduction of Serum, Toxoid and Vaccine into Muscle, Percutaneous Approach (ICD-10-PCS; principal; 2022-04-25)
DX: S61.412A Laceration without foreign body of left hand, initial encounter (principal); S61.213A Laceration without foreign body of left middle finger without damage to nail, initial encounter; W26.8XXA Contact with other sharp object(s), not elsewhere classified, initial encounter
CPT/HCPCS: 90471; 90715; 99284-25

== ENCOUNTER 2023-05-15 00:10 | Observation (INO) | payer OTHER, BC ==
[2023-05-15] MEDS ORDERED: ONDANSETRON 4 MG/2 ML VIAL IVPUSH ONE (00:27)
[2023-05-15] MEDS ORDERED: morphine CARPU-JECT 4 MG/1 ML DISP.SYRIN IVPUSH ONE (00:27)
[2023-05-15] MEDS ORDERED: morphine SULFATE 4 MG/ML VIAL ONE (00:27)
[2023-05-15] MEDS ORDERED: ONDANSETRON 4 MG/2 ML VIAL ONE (00:28)
[2023-05-15 00:56] LABS: BASO % 0.3 % (0-2.0); EOS % 0.6 % (0-4.5); HEMATOCRIT 35.4 % (35.4-49); HEMOGLOBIN 11.8 GM/dL (11.7-16.9); LYMPH % 7.1 % (8-40); MCH 31.1 pg (25.7-33.7); MCHC 33.5 g/dl (32.0-35.9); MEAN CELL VOLUME 92.8 fl (80-96); MONO % 4.8 % (3.8-10.2); NEUT % 87.2 % (42.8-82.8); PLATELET COUNT 262 10^3/uL (134-434); RBC 3.81 M/mm3 (4.00-5.60); RDW 13.9 % (11.9-15.9); WHITE BLOOD COUNT 8.1 K/mm3 (4.0-10.0)
[2023-05-15 01:04] LABS: INR 0.97 (0.83-1.09); PROTHROMBIN TIME (PATIENT) 11.2 SEC (9.7-13.0)
[2023-05-15 01:07] LABS: ACTIVATED PTT 29.8 SECONDS (25.2-36.5)
[2023-05-15 01:14] LABS: POTASSIUM 4.8 mmol/L (3.5-5.1)
[2023-05-15 01:16] LABS: CALCIUM 8.9 mg/dL (8.5-10.1)
[2023-05-15 01:17] LABS: ALBUMIN 3.8 g/dl (3.4-5.0); BLOOD UREA NITROGEN 36.7 mg/dL (7-18)
[2023-05-15 01:21] LABS: TOT PROT 7.5 g/dl (6.4-8.2)
[2023-05-15 01:22] LABS: BILIRUBIN,TOTAL 0.3 mg/dL (0.2-1)
[2023-05-15] MEDS ORDERED: diazePAM CARPU-JECT 10 MG/2 ML DISP.SYRIN IVPUSH ONE (02:32)
[2023-05-15] MEDS ORDERED: DEXAMETHASONE SOD PHOSPHATE 10 MG/1 ML VIAL IVPUSH ONE (02:32)
[2023-05-15] MEDS ORDERED: diazePAM CARPU-JECT 10 MG/2 ML DISP.SYRIN ONE (02:41)
[2023-05-15] MEDS ORDERED: DEXAMETHASONE SOD PHOSPHATE 10 MG/1 ML VIAL ONE (02:41)
[2023-05-15] MEDS ORDERED: HYDROmorphone HCl 2 MG/ML VIAL IVPUSH PRN (06:32)
[2023-05-15] MEDS ORDERED: ACETAMINOPHEN 1000 MG/100 ML BAG IVPB PRN (06:33)
[2023-05-15] MEDS: DEXTROSE 5%-0.45% SALINE 1,000 ML IV SCH ×2 (06:40→16:46)
[2023-05-15] MEDS ORDERED: ONDANSETRON 4 MG/2 ML VIAL IVPUSH PRN (07:00)
[2023-05-15] MEDS ORDERED: amLODIPine BESYLATE 10 MG TABLET (FP) ONE (10:18)
[2023-05-15] MEDS ORDERED: TAMSULOSIN HCL 0.4 MG CAP ONE (10:18)
[2023-05-15] MEDS ORDERED: metoPROLOL SUCCINATE 25 MG TAB.SR.24H (FP) PO ONE (10:18)
[2023-05-15] MEDS: metoPROLOL SUCCINATE 25 MG TAB.SR.24H (FP) PO SCH (10:29)
[2023-05-15] MEDS: amLODIPine BESYLATE 10 MG TABLET (FP) PO SCH (10:29)
[2023-05-15] MEDS: TAMSULOSIN HCL 0.4 MG CAP PO SCH (10:29)
[2023-05-15 10:36] LABS: MAGNESIUM 1.8 mg/dL (1.8-2.4)
[2023-05-15 10:40] LABS: PHOSPHOROUS 4.4 mg/dL (2.5-4.9)
[2023-05-15 16:08] VITALS: BMI 26.9
[2023-05-15 16:26] VITALS: RESP 20
[2023-05-15] MEDS ORDERED: DOCUSATE SODIUM 100 MG CAPSULE (FP) PO SCH (22:00)
[2023-05-16 02:11] VITALS: PULSE 86
[2023-05-16] MEDS: DEXTROSE 5%-0.45% SALINE 1,000 ML IV SCH (05:36)
[2023-05-16] MEDS ORDERED: ACETAMINOPHEN 325 MG TABLET (FP) PO PRN (06:28)
[2023-05-16] MEDS: amLODIPine BESYLATE 10 MG TABLET (FP) PO SCH ×2 (07:35→09:47)
[2023-05-16] MEDS: TAMSULOSIN HCL 0.4 MG CAP PO SCH (08:26)
[2023-05-16 09:45] VITALS: BP 144/94; TEMP 98.6
[2023-05-16] MEDS: metoPROLOL SUCCINATE 25 MG TAB.SR.24H (FP) PO SCH (09:47)
== END 2023-05-16 10:15 | disposition home or self-care (01) ==
LOC: JER 00:10 → JERBED 06:15 → J8W 15:22
PROVIDERS: ADMIT Family Medicine; ATTEND Family Medicine
PROC: 3E0337Z Introduction of Electrolytic and Water Balance Substance into Peripheral Vein, Percutaneous Approach (ICD-10-PCS; principal; 2023-05-15)
PROC: 3E033GC Introduction of Other Therapeutic Substance into Peripheral Vein, Percutaneous Approach (ICD-10-PCS; 2023-05-15)
PROC: 3E033NZ Introduction of Analgesics, Hypnotics, Sedatives into Peripheral Vein, Percutaneous Approach (ICD-10-PCS; 2023-05-15)
DX: M17.12 Unilateral primary osteoarthritis, left knee (principal); I10 Essential (primary) hypertension; E78.5 Hyperlipidemia, unspecified; Z90.49 Acquired absence of other specified parts of digestive tract; Z90.5 Acquired absence of kidney; Z87.891 Personal history of nicotine dependence; Z85.528 Personal history of other malignant neoplasm of kidney; Z91.012 Allergy to eggs; Z88.8 Allergy status to other drugs, medicaments and biological substances; Z88.0 Allergy status to penicillin; Z85.46 Personal history of malignant neoplasm of prostate; N20.0 Calculus of kidney
CPT/HCPCS: 36415; 72131-TC; 73564-TC-LT-FY; 73590-TC-LT-FY; 74176-TC; 76705-TC; 80053; 82977; 83735; 84100; 85025; 85610; 85730; 93970-TC; 96361; 96374; 96375; 96376; 99285-25; G0378; J1100

== ENCOUNTER 2024-01-25 15:18 | Inpatient (IN) | payer OTHER, BC ==
[2024-01-25 15:34] VITALS: BMI 27.1
[2024-01-25 17:03] LABS: BASO % 0.4 % (0-2.0); EOS % 0.9 % (0-4.5); HEMATOCRIT 39.8 % (35.4-49); HEMOGLOBIN 13.3 GM/dL (11.7-16.9); LYMPH % 6.9 % (8-40); MCH 30.2 pg (25.7-33.7); MCHC 33.3 g/dl (32.0-35.9); MEAN CELL VOLUME 90.7 fl (80-96); MEAN PLT VOLUME 7.4 fl (7.5-11.1); MONO % 2.3 % (3.8-10.2); NEUT % 89.5 % (42.8-82.8); PLATELET COUNT 142 10^3/uL (134-434); RBC 4.39 M/mm3 (4.00-5.60); RDW 15.1 % (11.9-15.9); WHITE BLOOD COUNT 5.7 K/mm3 (4.0-10.0)
[2024-01-25 17:11] LABS: INR 0.87 (0.83-1.09); PROTHROMBIN TIME (PATIENT) 9.9 SEC (9.7-13.0)
[2024-01-25 17:13] LABS: ACTIVATED PTT 28.3 SECONDS (25.2-36.5)
[2024-01-25 17:21] LABS: POTASSIUM 4.5 mmol/L (3.5-5.1)
[2024-01-25 17:23] LABS: CALCIUM 8.9 mg/dL (8.5-10.1)
[2024-01-25 17:24] LABS: ALBUMIN 3.1 g/dl (3.4-5.0); BLOOD UREA NITROGEN 27.4 mg/dL (7-18)
[2024-01-25 17:27] LABS: CREATININE 1.8 mg/dL (0.55-1.3)
[2024-01-25 17:29] LABS: BILIRUBIN,TOTAL 0.6 mg/dL (0.2-1); TOT PROT 6.8 g/dl (6.4-8.2)
[2024-01-25] MEDS ORDERED: ENOXAPARIN NA (PORCINE) 100 MG/1 ML DISP.SYRIN SQ ONE (19:41)
[2024-01-25] MEDS: ENOXAPARIN NA (PORCINE) 100 MG/1 ML DISP.SYRIN SQ ONE (20:03)
[2024-01-26] MEDS: ENOXAPARIN NA (PORCINE) 100 MG/1 ML DISP.SYRIN SQ SCH (06:51)
[2024-01-26 09:35] LABS: HEMATOCRIT 37.4 % (35.4-49); HEMOGLOBIN 12.8 GM/dL (11.7-16.9); MCH 30.8 pg (25.7-33.7); MCHC 34.2 g/dl (32.0-35.9); MEAN CELL VOLUME 89.9 fl (80-96); MEAN PLT VOLUME 7.5 fl (7.5-11.1); PLATELET COUNT 146 10^3/uL (134-434); RBC 4.15 M/mm3 (4.00-5.60); RDW 15.1 % (11.9-15.9)
[2024-01-26] MEDS: amLODIPine BESYLATE 10 MG TABLET (FP) PO SCH (09:49)
[2024-01-26] MEDS: FOLIC ACID 1 MG TABLET (FP) PO SCH (09:49)
[2024-01-26] MEDS: PANTOPRAZOLE 40 MG TABLET PO SCH (09:49)
[2024-01-26] MEDS: metoPROLOL SUCCINATE 25 MG TAB.SR.24H (FP) PO SCH (09:49)
[2024-01-26] MEDS: TAMSULOSIN HCL 0.4 MG CAP PO SCH (09:49)
[2024-01-26 09:52] LABS: POTASSIUM 4.3 mmol/L (3.5-5.1)
[2024-01-26] MEDS ORDERED: FERROUS SULFATE DRIED 159 MG PO SCH (10:00)
[2024-01-26] MEDS ORDERED: [UNRECOGNIZED DRUG - OTHER] PO SCH (10:00)
[2024-01-26 10:01] LABS: BLOOD UREA NITROGEN 28.2 mg/dL (7-18); CALCIUM 8.5 mg/dL (8.5-10.1); MAGNESIUM 1.6 mg/dL (1.8-2.4)
[2024-01-26 10:04] LABS: CREATININE 1.7 mg/dL (0.55-1.3)
[2024-01-26] MEDS: POLYETHYLENE GLYCOL 3350 255 GM BTL PO SCH (10:07)
[2024-01-26] MEDS: POLYETHYLENE GLYCOL (HEALTHYLAX) 3350 17 GM PACKET PO SCH (10:24)
[2024-01-26] MEDS: MAGNESIUM 2GM/50ML STERILE WATER IVPB IVPB ONE (12:05)
[2024-01-26] MEDS: LACTATED RINGERS SOLUTION 1,000 ML/1,000 ML INFUS.BAG IV SCH (12:05)
[2024-01-26] MEDS: CYCLOBENZAPRINE HCL 5 MG TABLET PO SCH (14:29)
[2024-01-26] MEDS: hydrALAZINE HCL 25 MG TABLET (FP) PO SCH (14:29)
[2024-01-27 07:46] VITALS: RESP 18
[2024-01-27 08:12] LABS: POTASSIUM 4.1 mmol/L (3.5-5.1)
[2024-01-27 08:19] LABS: BLOOD UREA NITROGEN 24.8 mg/dL (7-18); CALCIUM 8.2 mg/dL (8.5-10.1)
[2024-01-27 08:20] LABS: ALBUMIN 2.4 g/dl (3.4-5.0); MAGNESIUM 1.9 mg/dL (1.8-2.4)
[2024-01-27 08:23] LABS: CREATININE 1.5 mg/dL (0.55-1.3)
[2024-01-27 08:24] LABS: BILIRUBIN,TOTAL 0.6 mg/dL (0.2-1); TOT PROT 5.4 g/dl (6.4-8.2)
[2024-01-27 08:26] LABS: BASO % 0.7 % (0-2.0); EOS % 4.2 % (0-4.5); HEMATOCRIT 36.5 % (35.4-49); HEMOGLOBIN 12.2 GM/dL (11.7-16.9); LYMPH % 15.1 % (8-40); MCH 30.4 pg (25.7-33.7); MCHC 33.4 g/dl (32.0-35.9); MEAN PLT VOLUME 7.9 fl (7.5-11.1); MONO % 6.5 % (3.8-10.2); NEUT % 73.5 % (42.8-82.8); PLATELET COUNT 166 10^3/uL (134-434); RBC 4.01 M/mm3 (4.00-5.60); RDW 15.1 % (11.9-15.9); WHITE BLOOD COUNT 3.6 K/mm3 (4.0-10.0)
[2024-01-27] MEDS: NIFEdipine E.R 60 MG TABLET PO SCH (10:27)
[2024-01-27] MEDS: hydrALAZINE HCL 50 MG TABLET (FP) PO SCH (15:18)
[2024-01-27 15:53] VITALS: BP 148/90; PULSE 87; TEMP 98.4
== END 2024-01-27 18:43 | disposition home or self-care (01) | DRG 176 ==
LOC: JER 15:18 → JERBED 19:03 → J4W 21:34
PROVIDERS: ADMIT Internal Medicine; ATTEND Family Medicine
DX: I26.99 Other pulmonary embolism without acute cor pulmonale (principal); N17.9 Acute kidney failure, unspecified; C64.1 Malignant neoplasm of right kidney, except renal pelvis; D68.59 Other primary thrombophilia; E78.5 Hyperlipidemia, unspecified; I12.9 Hypertensive chronic kidney disease with stage 1 through stage 4 chronic kidney disease, or unspecified chronic kidney disease; N18.9 Chronic kidney disease, unspecified; K21.9 Gastro-esophageal reflux disease without esophagitis; C61 Malignant neoplasm of prostate
CPT/HCPCS: 0241U-QW; 36415; 71275-TC; 80048; 80053; 83605; 83735; 83880; 84100; 84484; 85025; 85027; 85379; 85610; 85730; 86850; 86900; 86901; 93005; 93010; 93306-TC; 99285-25

== ENCOUNTER 2024-02-18 11:10 | Inpatient (IN) | payer OTHER, BC ==
[2024-02-18 13:37] LABS: BASO % 0.2 % (0-2.0); EOS % 1.7 % (0-4.5); HEMOGLOBIN 8.6 GM/dL (11.7-16.9); LYMPH % 7.8 % (8-40); MCH 31.3 pg (25.7-33.7); MCHC 33.3 g/dl (32.0-35.9); MEAN CELL VOLUME 93.9 fl (80-96); MEAN PLT VOLUME 7.1 fl (7.5-11.1); MONO % 7.8 % (3.8-10.2); NEUT % 82.5 % (42.8-82.8); PLATELET COUNT 222 10^3/uL (134-434); RBC 2.77 M/mm3 (4.00-5.60); RDW 17.2 % (11.9-15.9)
[2024-02-18 13:45] LABS: INR 0.96 (0.83-1.09); PROTHROMBIN TIME (PATIENT) 10.9 SEC (9.7-13.0)
[2024-02-18 13:47] LABS: ACTIVATED PTT 27.1 SECONDS (25.2-36.5)
[2024-02-18 13:53] LABS: POTASSIUM 4.6 mmol/L (3.5-5.1)
[2024-02-18 13:55] LABS: CALCIUM 8.6 mg/dL (8.5-10.1)
[2024-02-18 13:56] LABS: ALBUMIN 2.7 g/dl (3.4-5.0); BLOOD UREA NITROGEN 25.8 mg/dL (7-18)
[2024-02-18 14:01] LABS: BILIRUBIN,TOTAL 0.4 mg/dL (0.2-1); TOT PROT 5.6 g/dl (6.4-8.2)
[2024-02-18 15:02] LABS: HIV INTERPRETATION NEGATIVE (NEGATIVE)
[2024-02-18] MEDS ORDERED: PANTOPRAZOLE 40 MG TABLET PO ONE (16:12)
[2024-02-18] MEDS: PANTOPRAZOLE 40 MG TABLET PO SCH (16:19)
[2024-02-18 18:34] VITALS: BMI 25.2
[2024-02-19] MEDS: TAMSULOSIN HCL 0.4 MG CAP PO SCH (09:27)
[2024-02-19 10:19] LABS: BASO % 0.6 % (0-2.0); EOS % 3.6 % (0-4.5); HEMATOCRIT 23.3 % (35.4-49); HEMOGLOBIN 7.6 GM/dL (11.7-16.9); LYMPH % 12.8 % (8-40); MCHC 32.6 g/dl (32.0-35.9); PLATELET COUNT 199 10^3/uL (134-434); RBC 2.45 M/mm3 (4.00-5.60); RDW 17.1 % (11.9-15.9); WHITE BLOOD COUNT 3.3 K/mm3 (4.0-10.0)
[2024-02-19 10:28] LABS: POTASSIUM 4.3 mmol/L (3.5-5.1)
[2024-02-19 10:44] LABS: ALBUMIN 2.4 g/dl (3.4-5.0); BLOOD UREA NITROGEN 22.1 mg/dL (7-18); CALCIUM 8.6 mg/dL (8.5-10.1); MAGNESIUM 1.8 mg/dL (1.8-2.4)
[2024-02-19 10:47] LABS: CREATININE 1.9 mg/dL (0.55-1.3); PHOSPHOROUS 2.5 mg/dL (2.5-4.9)
[2024-02-19 10:48] LABS: TOT PROT 4.9 g/dl (6.4-8.2)
[2024-02-19 10:51] LABS: BILIRUBIN,TOTAL 0.4 mg/dL (0.2-1)
[2024-02-19 12:35] LABS: RETICULOCYTES 1.46 % (0.5-1.5)
[2024-02-19] MEDS: metoPROLOL SUCCINATE 25 MG TAB.SR.24H (FP) PO SCH (12:58)
[2024-02-20 09:17] LABS: BASO % 0.5 % (0-2.0); EOS % 2.8 % (0-4.5); HEMATOCRIT 25.5 % (35.4-49); HEMOGLOBIN 8.4 GM/dL (11.7-16.9); LYMPH % 12.5 % (8-40); MCH 30.8 pg (25.7-33.7); MEAN CELL VOLUME 93.2 fl (80-96); MEAN PLT VOLUME 7.5 fl (7.5-11.1); MONO % 11.2 % (3.8-10.2); PLATELET COUNT 210 10^3/uL (134-434); RBC 2.74 M/mm3 (4.00-5.60); WHITE BLOOD COUNT 3.7 K/mm3 (4.0-10.0)
[2024-02-20 09:24] LABS: INR 0.97 (0.83-1.09)
[2024-02-20 09:30] LABS: POTASSIUM 4.4 mmol/L (3.5-5.1)
[2024-02-20 09:31] LABS: CALCIUM 8.3 mg/dL (8.5-10.1)
[2024-02-20 09:32] LABS: ALBUMIN 2.5 g/dl (3.4-5.0); BLOOD UREA NITROGEN 17.6 mg/dL (7-18)
[2024-02-20 09:35] LABS: CREATININE 1.8 mg/dL (0.55-1.3)
[2024-02-20 09:37] LABS: BILIRUBIN,TOTAL 0.4 mg/dL (0.2-1); TOT PROT 5.1 g/dl (6.4-8.2)
[2024-02-20] MEDS: BISACODYL 5 MG TABLET.DR (FP) PO ONE (16:02)
[2024-02-20] MEDS: PEG 3350/NA SULF BICARB CL/KCL 4000 ML SOLN.RECON PO ONE (16:59)
[2024-02-21 13:08] VITALS: RESP 18
[2024-02-22] MEDS ORDERED: APIXABAN 5 MG TABLET PO SCH (08:00)
[2024-02-22 10:11] LABS: BASO % 0.2 % (0-2.0); EOS % 1.7 % (0-4.5); HEMOGLOBIN 8.2 GM/dL (11.7-16.9); LYMPH % 9.2 % (8-40); MCH 30.9 pg (25.7-33.7); MCHC 32.8 g/dl (32.0-35.9); MEAN CELL VOLUME 94.2 fl (80-96); MEAN PLT VOLUME 7.2 fl (7.5-11.1); MONO % 10.6 % (3.8-10.2); NEUT % 78.3 % (42.8-82.8); PLATELET COUNT 226 10^3/uL (134-434); RBC 2.65 M/mm3 (4.00-5.60); RDW 17.3 % (11.9-15.9); WHITE BLOOD COUNT 4.5 K/mm3 (4.0-10.0)
[2024-02-22] MEDS: APIXABAN 5 MG TABLET PO SCH (10:14)
[2024-02-22] MEDS: ACETAMINOPHEN 500 MG TABLET (FP) PO PRN (10:14)
[2024-02-22 10:28] LABS: POTASSIUM 3.9 mmol/L (3.5-5.1)
[2024-02-22 10:31] LABS: ALBUMIN 2.4 g/dl (3.4-5.0); BLOOD UREA NITROGEN 19.6 mg/dL (7-18); CALCIUM 8.5 mg/dL (8.5-10.1)
[2024-02-22 10:35] LABS: BILIRUBIN,TOTAL 0.4 mg/dL (0.2-1)
[2024-02-22 10:36] LABS: TOT PROT 5.2 g/dl (6.4-8.2)
[2024-02-22 14:44] VITALS: BP 122/69; PULSE 87; TEMP 98.1
== END 2024-02-22 15:55 | disposition home or self-care (01) | DRG 378 ==
LOC: JER 11:10 → JERBED 16:09 → J8W 18:09
PROVIDERS: ADMIT Internal Medicine; ATTEND Internal Medicine
PROC: 0DJD8ZZ Inspection of Lower Intestinal Tract, Via Natural or Artificial Opening Endoscopic (ICD-10-PCS; 2024-02-21)
PROC: 0W3P8ZZ Control Bleeding in Gastrointestinal Tract, Via Natural or Artificial Opening Endoscopic (ICD-10-PCS; principal; 2024-02-21 11:00)
DX: K57.31 Diverticulosis of large intestine without perforation or abscess with bleeding (principal); N17.9 Acute kidney failure, unspecified; E78.5 Hyperlipidemia, unspecified; I12.9 Hypertensive chronic kidney disease with stage 1 through stage 4 chronic kidney disease, or unspecified chronic kidney disease; K31.819 Angiodysplasia of stomach and duodenum without bleeding; N18.9 Chronic kidney disease, unspecified; F10.10 Alcohol abuse, uncomplicated; K57.30 Diverticulosis of large intestine without perforation or abscess without bleeding; K64.8 Other hemorrhoids; Z85.528 Personal history of other malignant neoplasm of kidney
CPT/HCPCS: 36415; 36430; 74176-TC; 80053; 82272; 82728; 83540; 83550; 83605; 83690; 83735; 84100; 84443; 84466; 85025; 85045; 85610; 85730; 86803; 86850; 86900; 86901; 86922; 87389; 93005; 93010; 99285-25; P9058

== ENCOUNTER 2024-02-23 13:36 | Emergency (ER) | payer OTHER, BC ==
[2024-02-23 14:27] VITALS: BMI 25.2
[2024-02-23 15:16] LABS: BASO % 0.5 % (0-2.0); EOS % 0.6 % (0-4.5); HEMATOCRIT 20.3 % (35.4-49); MCH 30.6 pg (25.7-33.7); MCHC 32.3 g/dl (32.0-35.9); MEAN CELL VOLUME 94.5 fl (80-96); MEAN PLT VOLUME 7.3 fl (7.5-11.1); NEUT % 81.9 % (42.8-82.8); PLATELET COUNT 223 10^3/uL (134-434); RBC 2.15 M/mm3 (4.00-5.60); RDW 17.4 % (11.9-15.9); WHITE BLOOD COUNT 6.2 K/mm3 (4.0-10.0)
[2024-02-23 15:21] LABS: HEMOGLOBIN 6.6 GM/dL (11.7-16.9); INR 1.05 (0.83-1.09); PROTHROMBIN TIME (PATIENT) 12.1 SEC (9.7-13.0)
[2024-02-23 15:24] LABS: ACTIVATED PTT 26.4 SECONDS (25.2-36.5)
[2024-02-23 15:33] LABS: POTASSIUM 4.8 mmol/L (3.5-5.1)
[2024-02-23 15:34] LABS: CALCIUM 8.6 mg/dL (8.5-10.1)
[2024-02-23 15:35] LABS: ALBUMIN 2.5 g/dl (3.4-5.0); BLOOD UREA NITROGEN 32.6 mg/dL (7-18)
[2024-02-23 15:37] LABS: CREATININE 2.3 mg/dL (0.55-1.3)
[2024-02-23 15:40] LABS: BILIRUBIN,TOTAL 0.3 mg/dL (0.2-1)
[2024-02-23 16:30] LABS: HIV INTERPRETATION NEGATIVE (NEGATIVE)
[2024-02-23] MEDS ORDERED: morphine SULFATE 4 MG/ML VIAL ONE (20:13)
[2024-02-23] MEDS: morphine SULFATE 4 MG/ML VIAL IVPUSH ONE (20:34)
[2024-02-23 20:43] VITALS: BP 118/72; PULSE 68; RESP 16; TEMP 98.7
== END 2024-02-23 22:19 | disposition short-term general hospital (02) ==
LOC: JER 13:36
DX: K92.2 Gastrointestinal hemorrhage, unspecified (principal)
CPT/HCPCS: 36415; 36430; 80053; 85025; 85610; 85730; 86803; 86922; 87389; 93005; 93010; 99285-25; P9038; P9058

== ENCOUNTER 2024-11-04 20:51 | Emergency (ER) | payer OTHER, BC ==
[2024-11-04 21:01] VITALS: TEMP 98.3; BMI 27.3
[2024-11-04] MEDS: SODIUM CHLORIDE 0.9% 500 ML INFUS.BAG IV ONE (22:31)
[2024-11-04 22:38] LABS: ABSOLUTE IMMATURE GRANULOCYTES 0.01 x10^3/uL (0.0-0.031); BASOPHILS # 0.02 x10^3/uL (0.01-0.08); EOSINOPHIL % 3.4 % (0.8-7.0); EOSINOPHILS # 0.16 x10^3/uL (0.04-0.54); HEMOGLOBIN 11.2 g/dL (13.7-17.5); MCHC 32.9 g/dl (32.3-36.5); MEAN CELL VOLUME 92.9 fl (79.0-92.2); MEAN PLT VOLUME 9.3 fl (9.4-12.4); MONOCYTE # 0.46 x10^3/uL (0.30-0.82); MONOCYTE % 9.7 % (5.3-12.2); PLATELET COUNT 237 x10^3/uL (163-337); RDW 13.6 % (12.2-16.6)
[2024-11-04 22:46] LABS: INR 0.99 (0.83-1.09); PROTHROMBIN TIME (PATIENT) 10.8 SEC (9.7-13.0)
[2024-11-04 22:58] LABS: POTASSIUM 4.7 mmol/L (3.5-5.1)
[2024-11-04 23:00] LABS: ALBUMIN 3.4 g/dl (3.4-5.0); CALCIUM 9.5 mg/dL (8.5-10.1)
[2024-11-04 23:02] LABS: BLOOD UREA NITROGEN 30.7 mg/dL (7-18)
[2024-11-04 23:05] LABS: BILIRUBIN,TOTAL 0.5 mg/dL (0.2-1)
[2024-11-04 23:23] VITALS: BP 147/83; PULSE 67; RESP 16
== END 2024-11-05 03:16 | disposition home or self-care (01) ==
LOC: JER 20:51
DX: R10.13 Epigastric pain (principal); R10.32 Left lower quadrant pain; R94.8 Abnormal results of function studies of other organs and systems
CPT/HCPCS: 36415; 71046-TC-FY; 71275-TC; 74176-TC; 76705-TC; 80053; 83690; 84484; 85025; 85610; 85730; 93005; 93010; 99285-25; Q9967